=== PATIENT | male | born 1940 | race Caucasian/White ===

== ENCOUNTER 2019-12-17 08:01 | Emergency (ER) | payer MEDICARE, BC, SELFPAY ==
--- NOTE | ~2019-12-17 | CT_ITS ---
EXAMINATION: CT abdomen pelvis w con DATE: 12/17/2019 09:31 INDICATION: Prior bladder cancer presenting with chills and dysuria. TECHNIQUE: Computed tomography (CT) of the abdomen and pelvis was performed with 100 mL Omnipaque-350 intravenous contrast. Automated exposure control and iterative reconstruction technique were employe d. The dose-length product was 483.35 mGy-cm. COMPARISON: 12/11/2016 FINDINGS: Chronic band of round atelectasis at the posterior aspect of the left lower lobe. Chronic pleural thi ckening and trace pleural effusion at the posterior aspect of the left lower lobe. Calcified right lo wer lobe nodule consistent with old granulomatous disease. Heart size is normal. Atherosclerotic junior nary artery calcifications with change of prior median sternotomy for coronary artery bypass grafting . No pericardial effusion. Cholecystectomy clips at the gallbladder fossa. Liver, spleen, pancreas, bilateral adrenal glands and right kidney are normal. 5 mm left renal cyst. Moderate amount of colonic stool with ex 0.[address] ball of stool at the rectum. Small bowel and appendix are normal. Interval revision of a penile p rosthesis. Surgical clips versus brachytherapy seeds at the enlarged prostate. There are small thicke sherice along the posterior bladder wall thickening along with a couple bladder diverticula at the right posterior bladder. No free intraperitoneal gas or fluid. No pathologically enlarged abdominal or pel elsi lymphadenopathy. Mild lumbar levoscoliosis with moderate spondylosis. IMPRESSION: 1. Wall thickening in the posterior bladder with a couple bladder diverticula. The wall thickening co uld be related to chronic outlet obstruction from the enlarged prostate, cystitis, chronic scarring r elated to treatment of reported prior bladder cancer or recurrent malignancy. 2. Chronic pleural thickening and associated round atelectasis in the left lower lobe with unchanged trace left pleural effusion. Reviewed, dictated and finalized at location A. IMPRESSION: 1. Wall thickening in the posterior bladder with a couple bladder diverticula. The wall thickening could be related to chronic outlet obstruction from the enl arged prostate, cystitis, chronic scarring related to treatment of reported sallie or bladder cancer or recurrent malignancy. 2. Chronic pleural thickening and associated round atelectasis in the left lowe r lobe with unchanged trace left pleural effusion.
[2019-12-17 08:08] VITALS: BP 127/56; PULSE 75; RESP 18; TEMP 37; O2SAT 96
--- NOTE | 2019-12-17 08:24 | ED.ABDPAIN ---
HPI - Abdominal Pain General Chief Complaint: Urogenital-Male Stated Complaint: ?? UTI Time Seen by Provider: 12/17/19 08:23 History of Present Illness HPI narrative: Patient presents with his for difficulty with urination, and chills in the night. He has a history of frequent UTIs. He has a history of bladder cancer with surgery. His last CAT scan of the abdomen was 2011. He is followed by a urologist. He was unable to urinate here. He has no documented fever. He has no pain. He has no nausea or vomiting. He does not smoke drink or do drugs. He has surgical history of right rotator cuff, left knee, open heart, multiple hernias, and bladder cancer. Pertinent past history: past UTI and other (Bladder cancer) Onset (ago): hour(s) Related Data Home Medications Medication Instructions Recorded Confirmed finasteride 5 mg PO DAILY 05/22/19 06/05/19 metoprolol succinate 25 mg PO DAILY 05/22/19 06/05/19 tamsulosin 0.4 mg PO HS 05/22/19 06/05/19 Allergies Allergy/AdvReac Type Severity Reaction Status Date / Time atorvastatin Allergy Unknown Muscle Pain Verified 12/17/19 08:12 azithromycin Allergy Unknown Rash Verified 12/17/19 08:12 doxycycline Allergy Unknown Rash Verified 12/17/19 08:12 oxycodone Allergy Unknown Hallucinati Verified 12/17/19 08:21 ng pravastatin Allergy Unknown Muscle Pain Verified 12/17/19 08:12 rosuvastatin Allergy Unknown Muscle Pain Verified 12/17/19 08:12 Vadpdfh-Cdi-Vmk Reductase Allergy Unknown Muscle Pain Verified 12/17/19 08:12 Inhibitor tetracycline Allergy Unknown Rash Verified 12/17/19 08:12 Review of Systems Review of Systems: Narrative: CONSTITUTIONAL: Denies fever, but had chills. ENT: Denies rhinorrhea, congestion, sore throat, or otalgia. CARDIOVASCULAR: Denies chest pain, palpitations, or edema. RESPIRATORY: Denies cough or dyspnea. GASTROINTESTINAL: Denies abdominal pain, nausea, vomiting, or diarrhea. GENITOURINARY: Denies dysuria or hematuria. SKIN: Denies rash or itching. MUSCULOSKELETAL: Denies back pain, joint pain, or myalgia. NEUROLOGIC: Denies headache, numbness, or weakness. [facility] Past Medical History Medical History CAD (coronary artery disease) History of bladder cancer History of inguinal hernia History of rotator cuff strain Surgical History Surgical History Hx of CABG Social History Social History (Updated 12/17/19 @ 08:27 by Heather Grimes MD) Smoking status: Former smoker Smoking end date: 06/26/71 Alcohol intake: never Substance use: never Gender identity (if verbalized by the patient): Male Exam Narrative: Exam Narrative: GENERAL: Well-appearing, well-nourished, and in no acute distress. HEAD: Normocephalic, atraumatic. EYES: PERRLA and EOMI. ENT: Nares clear, no rhinorrhea or epistaxis. Mucous membranes moist. NECK: Supple. CHEST: Clear to auscultation. No respiratory distress. HEART: Regular rate and rhythm. No murmur heard. Normal peripheral pulses. ABDOMEN: Soft, nontender, nondistended, normal active bowel sounds. EXTREMITIES: Normal range of motion. No edema. SKIN: Warm, dry, no rash. NEURO: No focal deficits. Alert and oriented x3. PSYCH: Normal mood and affect. Course Reevaluation(s) Reevaluation #1: His bladder scan was 158, he is currently trying to obtain urine, his urologist is Dr. Valencia, the CAT scan shows obstruction. We will call Dr. Valencia for advice. Neena returned the call at [phone], and will consult with Dr. Lam and call me back. She says that the patient should call and schedule his cystoscopy and go home on antibiotics. Date: 12/17/19 Time: 10:04 Reevaluation #2: Went in to talk to the patient and tell him to go home on ciprofloxacin twice a day. He is also to call Dr. Lyn's office and schedule his cystoscopy. I encouraged him to drink plenty of water. He and his agree.
[2019-12-17] MEDS: SODIUM CHLORIDE 0.9% IV 1,000 ML 500 ML IV CONT (08:39)
[2019-12-17 08:51] LABS: Basophils Absolute Auto 0.1 K/mm3 (0.0-0.1); Basophils Percent Auto 0.3 % (0.2-1.2); Eosinophils Percent Auto 0.2 % (0-4.4); Hematocrit 44.2 % (42.0-52.0); Hemoglobin 14.8 g/dL (14.0-18.0); Immature Granulocyte Absolute 0.13 K/mm3 (0.00-0.031); Immature Granulocyte Percent A 0.7 % (0-0.5); Lymphocytes Percent Auto 5.1 % (18.3-44.2); Mean Corpuscular HGB Conc 33.5 g/dl (32-36); Mean Corpuscular Hemoglobin 31.8 pg (26-34); Mean Corpuscular Volume 95.1 fl (80-100); Mean Platelet Volume 10.2 fl (7.4-10.4); Monocytes Absolute Auto 1.5 K/mm3 (0.1-0.6); Monocytes Percent Auto 8.3 % (2.6-8.5); Neutrophils Percent Auto 85.4 % (45.5-73.1); Platelet Count Result 189 k/mm3 (150-375); Red Blood Count 4.65 M/mm3 (4.6-6.20); Red Cell Distribution Width 12.4 % (11.5-14.5); White Blood Count 17.6 K/mm3 (4.5-10.0)
[2019-12-17 09:06] LABS: Alanine Aminotransferase 20 U/L (4-50); Albumin Level 3.9 g/dL (3.5-5.1); Alkaline Phosphatase 106 U/L (38-126); Aspartate Amino Transferase 35 U/L (17-59); Bilirubin,Total 2.6 mg/dL (0.2-1.3); Blood Urea Nitrogen 17 mg/dL (9-20); Calcium 8.7 mg/dL (8.4-10.2); Carbon Dioxide 29 mmol/L (22-30); Chloride 100 mmol/L (98-107); Estimated CRCL calculation 74 ml/min; Estimated Glomerular Filt Rate > 60; Glucose 128 mg/dL (75-110); Potassium 4.2 mmol/L (3.4-5.0); Sodium 134 mmol/L (137-145)
[2019-12-17 09:10] LABS: Lactic Acid 0.9 mmol/L (0.7-2.1)
[2019-12-17 10:17] VITALS: BP 152/62; PULSE 65; RESP 18; O2SAT 98
[2019-12-17 10:37] LABS: Add Urine Microscopic? YES; Appearance Urine Clear (Clear); Bacteria Urine Trace /hpf; Bilirubin Urine Negative (Negative); Blood Urine Negative (Negative); Color Urine Yellow (Yellow); Glucose Urine UA Negative (Negative); Ketones Urine Trace mg/dL (Negative); Leukocyte Esterase Ur 3+ LEU/UL (Negative); Mucus Urine Rare /lpf; Nitrate Urine Positive (Negative); Protein Urine Negative (Negative); Squamous Epithelial Cell Urine Rare /hpf (Few); WBC Urine >75 /hpf
[2019-12-17 10:42] LABS: Specific Grav Ur 1.051 (1.001-1.035)
[2019-12-17 11:29] VITALS: BP 164/57; PULSE 80; RESP 18; O2SAT 96
== END 2019-12-17 11:31 | disposition home or self-care (01) ==
PROVIDERS: Emergency Provider Emergency Medicine; PCP Family Medicine
DX: E80.6 Other disorders of bilirubin metabolism (principal); R33.9 Retention of urine, unspecified; R68.83 Chills (without fever); N39.0 Urinary tract infection, site not specified; I25.10 Atherosclerotic heart disease of native coronary artery without angina pectoris; Z87.891 Personal history of nicotine dependence; Z95.1 Presence of aortocoronary bypass graft; Z85.51 Personal history of malignant neoplasm of bladder
CPT/HCPCS: 36415; 74177; 80053; 81001; 83605; 85025; 87040; 87077; 87086; 87088; 87186; 96361; 96365; 99284; J0696; J7030; Q9967

== ENCOUNTER 2019-12-19 08:43 | Emergency (ER) | payer MEDICARE, BC, SELFPAY ==
[2019-12-19] VITALS (12 sets, daily range): BP systolic 126–145; BP diastolic 55–106; PULSE 67–84; RESP 18–25; TEMP 37.4; O2SAT 93–97
--- NOTE | 2019-12-19 08:53 | ECG_ITS ---
Measurements Intervals [place] Rate: 82 P: 52 OR: 209 QRS: -36 QRSD: 98 T: 48 QT: 341 QTc: 401 Interpretive Statements SINUS RHYTHM POSSIBLE LEFT ATRIAL ENLARGEMENT LEFT AXIS DEVIATION BORDERLINE R WAVE PROGRESSION, ANTERIOR LEADS BORDERLINE ECG Electronically Signed On 12-19-2019 12:44:29 CDT by Young Richard D.O.
--- NOTE | 2019-12-19 08:56 | ED.FEVER ---
HPI - Fever General Chief Complaint: Urogenital-Male Stated Complaint: fever Time Seen by Provider: 12/19/19 08:49 History of Present Illness HPI Narrative: Seen here 2 days ago and diagnosed with UTi. Given single dose of ceftriaxone and started on antibiotics. He felt like he was getting better initially, but then his fever returned and worsened and he reports generally not feeling well. On review of the chart sensitivities are back from the urine culture and it grew out E. coli resistant to ceftriaxone and cipro. Related Data Home Medications Medication Instructions Recorded Confirmed finasteride 5 mg PO DAILY 05/22/19 06/05/19 metoprolol succinate 25 mg PO DAILY 05/22/19 06/05/19 tamsulosin 0.4 mg PO HS 05/22/19 06/05/19 Allergies Allergy/AdvReac Type Severity Reaction Status Date / Time atorvastatin Allergy Unknown Muscle Pain Verified 12/17/19 08:12 azithromycin Allergy Unknown Rash Verified 12/17/19 08:12 doxycycline Allergy Unknown Rash Verified 12/17/19 08:12 oxycodone Allergy Unknown Hallucinati Verified 12/17/19 08:21 ng pravastatin Allergy Unknown Muscle Pain Verified 12/17/19 08:12 rosuvastatin Allergy Unknown Muscle Pain Verified 12/17/19 08:12 Mhuowjj-Myn-Yub Reductase Allergy Unknown Muscle Pain Verified 12/17/19 08:12 Inhibitor tetracycline Allergy Unknown Rash Verified 12/17/19 08:12 Review of Systems Review of Systems: All systems reviewed & are unremarkable except as noted in HPI and below Constitutional: Constitutional: Reports chills, Reports fatigue and Reports fever(s) ENT: Denies sore throat Cardiovascular: Cardiovascular: Denies chest pain Respiratory: Respiratory: Denies cough, Denies dyspnea and Denies wheezing Gastrointestinal: Gastrointestinal: Reports nausea Genitourinary: Genitourinary: Reports hematuria, Reports dysuria and Reports urinary frequency Musculoskeletal: Musculoskeletal: Reports back pain PMFSH Past Medical History Medical History CAD (coronary artery disease) History of bladder cancer History of inguinal hernia History of rotator cuff strain Surgical History Surgical History Hx of CABG Family History Family History Other Family history of coronary artery disease Family history of malignant neoplasm Social History Social History Smoking status: Former smoker Smoking end date: 06/26/71 Alcohol intake: never Substance use: never Gender identity (if verbalized by the patient): Male Exam Const: General: healthy appearing, no acute distress and alert Orientation/consciousness: patient oriented x3 HENMT: Head: normal to inspection Neck: Neck: normal visual inspection and no lymphadenopathy Chest: Chest palpation & inspection: no tenderness Resp: Effort & Inspection: normal respiratory effort Auscultation: clear to auscultation bilaterally, no rales, no rhonchi and no wheezes Cardio: Jugular venous distension: no JVD Rate: regular rate Rhythm: regular rhythm Heart sounds: no murmurs GI: Inspection: non-distended GI Palp: Yes Soft to palpation and No Tenderness to palpation present (GI) Skin: General skin exam: normal color Neuro: General: patient oriented x3 and moves all extremities Speech: normal speech Extrem: General: no edema Psych: Appearance: well kempt Affect: normal affect Course Vital Signs Vital signs: Vital Signs Temperature 37.4 C 12/19/19 08:50 Pulse Rate 77 12/19/19 08:50 Respiratory Rate 23 H 12/19/19 08:50 Blood Pressure 140/71 12/19/19 08:50 Pulse Oximetry 96 12/19/19 08:50 Temperature 37.4 C 12/19/19 08:50 Pulse Rate 70 12/19/19 10:01 Respiratory Rate 22 H 12/19/19 10:01 Blood Pressure 133/55 L 12/19/19 10:01 Pulse Oximetry 96
[2019-12-19] MEDS: SODIUM CHLORIDE 0.9% IV 1,000 ML 999 ML IV CONT (09:15)
[2019-12-19 09:17] LABS: Basophils Percent Auto 0.2 % (0.2-1.2); Eosinophils Percent Auto 0.2 % (0-4.4); Hematocrit 43.1 % (42.0-52.0); Hemoglobin 14.2 g/dL (14.0-18.0); Immature Granulocyte Percent A 0.8 % (0-0.5); Lymphocytes Absolute Auto 0.54 K/mm3 (0.9-3.2); Lymphocytes Percent Auto 4.3 % (18.3-44.2); Mean Corpuscular HGB Conc 32.9 g/dl (32-36); Mean Corpuscular Hemoglobin 31.6 pg (26-34); Mean Platelet Volume 10.1 fl (7.4-10.4); Monocytes Percent Auto 8.1 % (2.6-8.5); Neutrophils Absolute Auto 10.8 K/mm3 (1.3-6.7); Neutrophils Percent Auto 86.4 % (45.5-73.1); Platelet Count Result 176 k/mm3 (150-375); Red Blood Count 4.49 M/mm3 (4.6-6.20); Red Cell Distribution Width 12.4 % (11.5-14.5); White Blood Count 12.6 K/mm3 (4.5-10.0)
[2019-12-19 09:29] LABS: Alanine Aminotransferase 21 U/L (4-50); Albumin Level 3.7 g/dL (3.5-5.1); Alkaline Phosphatase 123 U/L (38-126); Aspartate Amino Transferase 31 U/L (17-59); Bilirubin,Total 1.3 mg/dL (0.2-1.3); Blood Urea Nitrogen 16 mg/dL (9-20); Calcium 8.5 mg/dL (8.4-10.2); Carbon Dioxide 28 mmol/L (22-30); Chloride 102 mmol/L (98-107); Estimated CRCL calculation 66 ml/min; Estimated Glomerular Filt Rate > 60; Glucose 150 mg/dL (75-110); Potassium 3.8 mmol/L (3.4-5.0); Sodium 135 mmol/L (137-145)
== END 2019-12-19 10:17 | disposition home or self-care (01) ==
PROVIDERS: Emergency Provider Emergency Medicine; PCP Family Medicine
DX: N39.0 Urinary tract infection, site not specified (principal); I25.10 Atherosclerotic heart disease of native coronary artery without angina pectoris; Z85.51 Personal history of malignant neoplasm of bladder; Z95.1 Presence of aortocoronary bypass graft; Z87.891 Personal history of nicotine dependence
CPT/HCPCS: 36415; 80053; 85025; 93005; 96360; 99283; A9270; J7030

== ENCOUNTER 2020-07-06 00:32 | Outpatient (CLI) | payer MEDICARE, BC, SELFPAY ==
[2020-07-06 19:06] LABS: SARS-CoV-2 RNA PCR Negative
== END 2020-07-06 00:33 | disposition home or self-care (01) ==
LOC: ANHCOVIDDT 00:32
PROVIDERS: PCP Internal Medicine Geriatric Medicine; Visit Provider Internal Medicine Gastroenterology
DX: Z01.812 Encounter for preprocedural laboratory examination (principal); Z20.822 Contact with and (suspected) exposure to COVID-19
CPT/HCPCS: C9803; U0003

== ENCOUNTER 2020-07-09 00:45 | Day surgery (SDC) | payer MEDICARE, BC, SELFPAY ==
[2020-07-01 14:18] VITALS: BMI 23.9
[2020-07-09 07:06] VITALS: BP 125/67; PULSE 112; RESP 18; TEMP 36.6; O2SAT 97
[2020-07-09] MEDS: LACTATED RINGERS 1,000 ML 150 ML IV CONT (07:18)
--- NOTE | 2020-07-09 07:56 | PM.IMHP ---
H&P: [facility] History of Present Illness Date/Time: 07/09/20 07:56 Chief Complaint: Patient here for colonosc Narrative: Reason for visit is colonoscopy. This very pleasant gentleman is here at the request of the primary physician. The patient was examined. Impression: This gentleman is here for screening and surveillance colonoscopy. He has a history of adenomatous colon polyps. He has difficulty with defecation is most likely functional in nature. 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 CAD status post stent placement x1 with subsequent CABG x2. Right carotid bruit. HLD. HTN. Bladder cancer. Status post cystoscopy excision of bladder tumor. BPH. Recommendation: Colonoscopy. Carotid Dopplers. History: This very pleasant gentleman is here for screening and surveillance colonoscopy. He has a history adenomatous colon polyps and melanosis coli. The patient reports difficulty with defecation. He has straining with subsequent passage of a plug of stool and gas. Hematochezia, melena collect stools at night. He is here for colonoscopy. Physical examination: General: very pleasant patient in no acute distress. HEENT: Head was normocephalic sclerae is clear mouth without masses neck was supple. Heart: Rate rhythm regular without S3 or S4. Right carotid bruit. Lungs: CTA. Abdomen: Soft with no guarding or rigidity. Bowel sounds were active. Neurologic: Cranial nerves 2 through 12 intact. No focal defects. No clonus. Musculoskeletal system: Revealed no joint tenderness or swelling no muscle atrophy. Extremities: Reveal no significant edema. Skin: Warm and dry with normal turgor. Mental status: intact. Patient is alert and oriented. Review of Systems Review of Systems: All systems reviewed & are unremarkable except as noted in HPI and below [facility] Past Medical History Medical History (Updated 07/09/20 @ 07:55 by Sang Doll DO) Adenomatous colon polyp BPH (benign prostatic hyperplasia) CAD (coronary artery disease) History of bladder cancer HLD (hyperlipidemia) HTN (hypertension) Surgical History Surgical History (Updated 07/09/20 @ 07:56 by Sang Doll DO) H/O colonoscopy Hx of CABG S/P primary angioplasty with coronary stent Family History Family History Other Family history of coronary artery disease Family history of malignant neoplasm Social History Social History Smoking packs per day: 1 Smoking cigarettes per day: 20.0 Years smoked: 13 Smoking pack-years: 13.00 Smoking status: Former smoker Tobacco type: cigarettes Smoking end date: 06/26/71 Alcohol intake: never Substance use: never Substance use type: does not use Living arrangements: with family Gender identity (if verbalized by the patient): Male Spiritual care concerns: No Meds Home Medications and Allergies Home Medications Medication Instructions Recorded Confirmed Type finasteride 5 mg PO DAILY 05/22/19 07/01/20 History tamsulosin 0.4 mg PO HS 05/22/19 07/01/20 History aspirin 325 mg PO DAILY 07/01/20 07/01/20 History Allergies Allergy/AdvReac Type Severity Reaction Status Date / Time atorvastatin Allergy Unknown Muscle Pain Verified 07/09/20 07:04 azithromycin Allergy Unknown Rash Verified 07/09/20 07:04 doxycycline Allergy Unknown Rash Verified 07/09/20 07:04 oxycodone Allergy Unknown Hallucinati Verified 07/09/20 07:04 ng pravastatin Allergy Unknown Muscle Pain Verified 07/09/20 07:04 rosuvastatin Allergy Unknown Muscle Pain Verified 07/09/20 07:04 Sypodmf-Aat-Okp Reductase Allergy Unknown Muscle Pain Verified 07/09/20 07:04 Inhibitor tetracycline Allergy Unknown Rash Verified 07/09/20 07:04 Vital Signs Vital Signs - 24 hr 07/09/20 07:06 Temperature 36.6 C Pulse Rate 112 H Respiratory Rate 18 Blood Pressure
--- NOTE | 2020-07-09 08:02 | WPDANESEPPF ---
Anes - Initial Pre Proc Eval Procedure: Operation Date: 07/09/20 08:30 Proposed Procedures p Screening Colonoscopy - Sang Doll DO Date/Time: 07/09/20 08:02 Surgeon: Sang Doll DO Pre Op Diagnosis: neoplasm screening Patient Data Age: 80 Gender: M Height: 6 ft Weight: 79.4 kg Last Vital Signs Temp 97.9 F 07/09/20 07:06 Pulse 112 H 07/09/20 07:06 Resp 18 07/09/20 07:06 BP 125/67 07/09/20 07:06 Pulse Ox 97 07/09/20 07:06 Allergies Allergy/AdvReac Type Severity Reaction Status Date / Time atorvastatin Allergy Unknown Muscle Pain Verified 07/09/20 07:04 azithromycin Allergy Unknown Rash Verified 07/09/20 07:04 doxycycline Allergy Unknown Rash Verified 07/09/20 07:04 oxycodone Allergy Unknown Hallucinati Verified 07/09/20 07:04 ng pravastatin Allergy Unknown Muscle Pain Verified 07/09/20 07:04 rosuvastatin Allergy Unknown Muscle Pain Verified 07/09/20 07:04 Lcsgcei-Gev-Ibe Reductase Allergy Unknown Muscle Pain Verified 07/09/20 07:04 Inhibitor tetracycline Allergy Unknown Rash Verified 07/09/20 07:04 Home Medications Medication Instructions Recorded Confirmed Type finasteride 5 mg PO DAILY 05/22/19 07/01/20 History tamsulosin 0.4 mg PO HS 05/22/19 07/01/20 History aspirin 325 mg PO DAILY 07/01/20 07/01/20 History Patient hx anesthesia problems: none Family hx anesthesia problems: none PMFSH Past Medical History Medical History (Updated 07/09/20 @ 07:55 by Sang Doll DO) Adenomatous colon polyp BPH (benign prostatic hyperplasia) CAD (coronary artery disease) History of bladder cancer HLD (hyperlipidemia) HTN (hypertension) Surgical History Surgical History (Updated 07/09/20 @ 07:56 by Sang Doll DO) H/O colonoscopy Hx of CABG S/P primary angioplasty with coronary stent Family History Family History Other Family history of coronary artery disease Family history of malignant neoplasm Social History Social History Smoking packs per day: 1 Smoking cigarettes per day: 20.0 Years smoked: 13 Smoking pack-years: 13.00 Smoking status: Former smoker Tobacco type: cigarettes Smoking end date: 06/26/71 Alcohol intake: never Substance use: never Substance use type: does not use Living arrangements: with family Gender identity (if verbalized by the patient): Male Spiritual care concerns: No Anes - Eval Final PreProcedure Day of Procedure 07/09/20 08:02 Patient weight: normal Heart: regular rate and rhythm Lungs: clear to auscultation Airway: Mallampati scale class II Neurological: alert and oriented Last oral intake: >/= 8 hours ASA classification: III Emergent: no Anesthetic plan: proceed Anesthesia type and monitoring: general GIVS and standard monitoring Informed Consent: The patient's anesthetic plan and its attendant risks and benefits were discussed with the patient/family/POA. Questions were solicited and answers provided to the satisfaction of the patient/family/POA.
[2020-07-09 09:29] VITALS: BP 110/55; PULSE 63; RESP 18; O2SAT 98
[2020-07-09 09:39] VITALS: BP 109/53; PULSE 54; RESP 18; O2SAT 96
[2020-07-09 09:48] VITALS: BP 124/61; PULSE 55; RESP 18; O2SAT 96
== END 2020-07-09 10:08 | disposition home or self-care (01) ==
PROVIDERS: PCP Internal Medicine Geriatric Medicine; Visit Provider Internal Medicine Gastroenterology
PROC: 0DJD8ZZ Inspection of Lower Intestinal Tract, Via Natural or Artificial Opening Endoscopic (ICD-10-PCS; CPT 45378; principal; 2020-07-09 08:30)
DX: Z12.11 Encounter for screening for malignant neoplasm of colon (principal); D12.2 Benign neoplasm of ascending colon; K64.8 Other hemorrhoids; I10 Essential (primary) hypertension; E78.5 Hyperlipidemia, unspecified; I25.10 Atherosclerotic heart disease of native coronary artery without angina pectoris; N40.0 Benign prostatic hyperplasia without lower urinary tract symptoms; Z85.51 Personal history of malignant neoplasm of bladder; Z95.1 Presence of aortocoronary bypass graft; Z95.5 Presence of coronary angioplasty implant and graft; Z79.82 Long term (current) use of aspirin; Z87.891 Personal history of nicotine dependence
CPT/HCPCS: 45380; 88305; J2704; J7120

== ENCOUNTER 2020-08-06 18:34 | Emergency (ER) | payer MEDICARE, BC, SELFPAY ==
[2020-08-06 18:45] VITALS: BP 142/63; PULSE 59; RESP 16; TEMP 36.6; O2SAT 98
[2020-08-06] MEDS: predniSONE 20 MG TABLET 60 MG PO (19:44)
[2020-08-06] MEDS: diphenhydrAMINE HCl INJ 50 MG/ML VIAL 25 MG IM (19:44)
--- NOTE | 2020-08-06 20:24 | ED.ALLEREA ---
HPI - Allergic Reaction General Chief complaint: Allergic Reaction Stated complaint: allergic reaction to shrimp? Time Seen by Provider: 08/06/20 19:11 Source: patient and family Mode of arrival: ambulatory Limitations: no limitations History of Present Illness HPI narrative: 80-year-old with a history of BPH, hypertension here with complaints of bilateral palms itching since this afternoon. Patient states that he had his went out to eat [place] food touched shrimp with his hands but did not eat as it was smelling bad. He denies any shortness of breath or throat swelling or abdominal pain. MD complaint: allergic reaction Onset (ago): hour(s) (4) Exposure: food (Shrimp) Symptoms: itching Severity: moderate Treatment prior to arrival: none Previous Allergic Reaction History: none Related Data Home Medications Medication Instructions Recorded Confirmed finasteride 5 mg PO DAILY 05/22/19 07/01/20 tamsulosin 0.4 mg PO HS 05/22/19 07/01/20 aspirin 325 mg PO DAILY 07/01/20 07/01/20 Allergies Allergy/AdvReac Type Severity Reaction Status Date / Time atorvastatin Allergy Unknown Muscle Pain Verified 08/06/20 18:50 azithromycin Allergy Unknown Rash Verified 08/06/20 18:50 doxycycline Allergy Unknown Rash Verified 08/06/20 18:50 oxycodone Allergy Unknown Hallucinati Verified 08/06/20 18:50 ng pravastatin Allergy Unknown Muscle Pain Verified 08/06/20 18:50 rosuvastatin Allergy Unknown Muscle Pain Verified 08/06/20 18:50 Wwgevsh-Uww-Znu Reductase Allergy Unknown Muscle Pain Verified 08/06/20 18:50 Inhibitor tetracycline Allergy Unknown Rash Verified 08/06/20 18:50 Review of Systems Review of Systems: All systems reviewed & are unremarkable except as noted in HPI and below Constitutional: Constitutional: Reports no additional constitutional complaints Eyes: Eyes: Reports no additional eye complaints ENT: Reports system reviewed and no additional complaints, except as documented Cardiovascular: Cardiovascular: Reports no additional cardiovascular complaints Respiratory: Respiratory: Reports no additional respiratory complaints Gastrointestinal: Gastrointestinal: Reports no additional gastrointestinal complaints Musculoskeletal: Musculoskeletal: Reports no additional musculoskeletal complaints Integumentary/Breasts: Skin/Breast: Reports as per HPI Neurologic: Reports system reviewed and no additional complaints, except as documented PMFSH Past Medical History Medical History Adenomatous colon polyp BPH (benign prostatic hyperplasia) CAD (coronary artery disease) History of bladder cancer HLD (hyperlipidemia) HTN (hypertension) Surgical History Surgical History H/O colonoscopy Hx of CABG S/P primary angioplasty with coronary stent Family History Family History Other Family history of coronary artery disease Family history of malignant neoplasm Social History Social History Smoking packs per day: 1 Smoking cigarettes per day: 20.0 Years smoked: 13 Smoking pack-years: 13.00 Smoking status: Former smoker Tobacco type: cigarettes Smoking end date: 06/26/71 Alcohol intake: never Substance use: never Substance use type: does not use Gender identity (if verbalized by the patient): Male Spiritual care concerns: No Exam Narrative: Exam Narrative: GENERAL: Well-appearing, well-nourished, and in no acute distress. HEAD: Normocephalic, atraumatic. EYES: PERRLA and EOMI. ENT: Nares clear, no rhinorrhea or epistaxis. Mucous membranes moist. NECK: Supple. CHEST: Clear to auscultation. No respiratory distress. HEART: Regular rate and rhythm. No murmur heard. Normal peripheral pulses.. EXTREMITIES: Normal range of motion. No edema.no rash SKIN: Warm, dry, no
== END 2020-08-06 20:41 | disposition home or self-care (01) ==
PROVIDERS: Emergency Provider Family Medicine; PCP Internal Medicine Geriatric Medicine
DX: T78.40XA Allergy, unspecified, initial encounter (principal); N40.0 Benign prostatic hyperplasia without lower urinary tract symptoms; I10 Essential (primary) hypertension; Z86.010 Personal history of colon polyps; I25.10 Atherosclerotic heart disease of native coronary artery without angina pectoris; Z85.51 Personal history of malignant neoplasm of bladder; E78.5 Hyperlipidemia, unspecified; Z79.82 Long term (current) use of aspirin; Z95.1 Presence of aortocoronary bypass graft; Z95.5 Presence of coronary angioplasty implant and graft
CPT/HCPCS: 96372; 99283; J1200; J7512

== ENCOUNTER 2021-09-08 09:50 | Inpatient (IN) | payer MEDICARE, BC, SELFPAY ==
[2021-09-08] VITALS (27 sets, daily range): BP systolic 115–150; BP diastolic 53–100; PULSE 62–102; RESP 15–23; TEMP 36.6–36.9; O2SAT 90–98; BMI 22.8
--- NOTE | ~2021-09-08 | CT_ITS ---
EXAMINATION: CT abdomen pelvis w con DATE: 09/09/2021 18:17 INDICATION: Bladder cancer TECHNIQUE: Computed tomography (CT) of the abdomen and pelvis was performed with 100 CC Omnipaque 350 intravenous contrast. Automated exposure control and iterative reconstruction technique were employe d. Exam dose: 468.99 mGy-cm total exam DLP. COMPARISON: 12/17/2019 CT abdomen pelvis FINDINGS: There is left pleural thickening and chronic prominent discoid scarring in the posterior ba silar left lower lobe, also present on 12/17/2019. Status post sternotomy. Cardiomegaly. No pericardial or pleural effusion. The lung bases are clear of infiltrate or consolida tion. Status post cholecystectomy which likely accounts for mild prominence of the common bile duct and int rahepatic bile ducts. No hepatic, splenic and, pancreatic, and adrenal or renal space-occupying mass lesion is evident, wit h the exception of a 7 mm left renal cyst. No lower quadrant. No urinary tract calculus or hydroureteronephrosis. There are multiple urinary bladder diverticula. There is irregular soft tissue density in the posterior lower urinary bladder and prostate area; hist ory of bladder cancer. The appearance is stable compared to 12/17/2019 Radiopaque brachytherapy seeds are noted in the prostate. There is a prominent amount of fecal material in the rectosigmoid area without unusual thickening of the wall. No bowel obstruction. Normal appendix. No intraperitoneal free air. There is atherosclerotic calcification of the abdominal aorta but no aneurysm. No intraperitoneal or retroperitoneal or pelvic mass lesion or adenopathy or ascites is noted otherwise. Penile prosthetic device. Extensive osteolytic disease of the ribs, spine, pelvis consistent with extensive skeletal metastatic disease since 12/17/2019. IMPRESSION: Stable chronic thickening along the posterior inferior aspect of the urinary bladder whi ch may be due to prostate enlargement or urinary bladder or prostate malignancy; the appearance howev er is stable since 12/17/2019 Interval extensive osteolytic lesion of the axial skeleton suggesting extensive skeletal metastases. Consider radionuclide bone scan for confirmation of the extent of disease Radiopaque brachytherapy seeds in the prostate Bladder diverticula 7 mm left renal cyst Status post cholecystectomy, likely responsible for mild bile duct dilatation Cardiomegaly Chronic pleural thickening and scarring in the left lower lobe Reviewed, dictated and finalized at [facility]. Reviewed, dictated and finalized at location [facility]. IMPRESSION: Stable chronic thickening along the posterior inferior aspect of t he urinary bladder which may be due to prostate enlargement or urinary bladder or prostate malignancy; the appearance however is stable since 12/17/2019 Interval extensive osteolytic lesion of the axial skeleton suggesting extensive skeletal metastases. Consider radionuclide bone scan for confirmation of the e xtent of disease Radiopaque brachytherapy seeds in the prostate Bladder diverticula 7 mm left renal cyst Status post cholecystectomy, likely responsible for mild bile duct dilatation Cardiomegaly Chronic pleural thickening and scarring in the left lower lobe
--- NOTE | ~2021-09-08 | XR_ITS ---
XR chest 1V portable 09/08/2021 10:17 Indication: Dyspnea. Chest pain. Procedure: AP portable chest Comparison: Comparison to multiple prior studies sequentially, with oldest reviewed study dated 12/23. Findings: There is airspace disease left mid and lower lung, consistent with pneumonia. Possible smal l effusion. Status post median sternotomy for CABG. Right lung clear. No acute osseous abnormality. Impression: 1: Left basilar airspace disease, consistent with pneumonia. Reviewed, dictated and finalized at location [facility]. Impression: 1: Left basilar airspace disease, consistent with pneumonia.
--- NOTE | ~2021-09-08 | NM_ITS ---
EXAMINATION: NM humphrey stress w perfusion DATE: 09/10/2021 10:13 INDICATION: Chest pain. Elevated troponin. Coronary artery disease. TECHNIQUE: Rest images were obtained following intravenous administration of 9.6 mCi Tc99m tetrofosmi n (Myoview). The patient was infused intravenously with Lexiscan (Regadenoson). Then, 29.9 mCi Tc99m tetrofosmin (Myoview) was administered intravenously, and stress images were obtained in supine posit ion. Patient was unable to tolerate prone positioning. Data was reconstructed into short axis and hor izontal and vertical long axis SPECT images. Gated SPECT images were also obtained. COMPARISON: None. 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 No reversible ischemia. There is normal left ventricular chamber size, wall motion and eject ion fraction. Left ventricular ejection fraction measures 54%. Incidentally noted is a focus of inte nse uptake of activity on the anterior left chest wall which correlates with an expansile destructive lesion involving the anterior left third rib consistent with multiple myeloma versus metastatic dise ase. IMPRESSION: 1. Small mild fixed perfusion defect at the mid anterolateral segment consistent with infarct. No rev ersible ischemia. 2. Left ventricular ejection fraction measuring 54%. 3. Focus of intense uptake at the anterior left chest wall corresponding expansile lytic lesion at th e anterior left third rib consistent with multiple myeloma versus metastatic disease in this patient with known bladder cancer. Reviewed, dictated and finalized at location [facility]. IMPRESSION: 1. Small mild fixed perfusion defect at the mid anterolateral segment consisten t with infarct. No reversible ischemia. 2. Left ventricular ejection fraction measuring 54%. 3. Focus of intense uptake at the anterior left chest wall corresponding expans ile lytic lesion at the anterior left third rib consistent with multiple myelom a versus metastatic disease in this patient with known bladder cancer.
--- NOTE | ~2021-09-08 | CT_ITS ---
EXAMINATION:CT diagnostic chest wo con DATE: 09/08/2021 13:30 INDICATION: Chest pain. Pneumonia. TECHNIQUE: Computed tomography (CT) of the chest was performed without intravenous contrast. Automate d exposure control and iterative reconstruction technique were employed. The dose-length product (DLP ) was 146.70 mGy-cm. COMPARISON: Chest CT 12/11/2016 FINDINGS: There is mild scarring at the lung apices. There is mild emphysema. Chronic left-sided pleu ral thickening is noted. There is mild rounded atelectasis in left lower lobe. Again seen is peripher al septal thickening in right lower lobe, consistent with chronic lung disease. No pleural effusion. Cardiomegaly is noted. There are coronary artery calcifications. There are calcifications of aortic v alve. There are changes of cholecystectomy. There are widespread scattered lytic lesions of bone. The re is largest lesion is in left third rib where there is a 3.2 x 1.6 cm soft tissue mass. IMPRESSION: 1. Widespread lytic lesions of bone, consistent with multiple myeloma versus metastatic disease. 2. Mild emphysema and mild chronic lung disease. Reviewed, dictated and finalized at location A. IMPRESSION: 1. Widespread lytic lesions of bone, consistent with multiple myeloma versus me tastatic disease. 2. Mild emphysema and mild chronic lung disease.
--- NOTE | 2021-09-08 10:06 | ECG_ITS ---
Measurements Intervals [place] Rate: 90 P: 53 MO: 221 QRS: -41 QRSD: 122 T: 59 QT: 352 QTc: 433 Interpretive Statements SINUS RHYTHM WITH FIRST DEGREE AV BLOCK POSSIBLE LEFT ATRIAL ENLARGEMENT [-0.1mV P WAVE IN V1/V2] MARKED LEFT AXIS DEVIATION [QRS AXIS < -30] COMPARED TO ECG 12/19/2019 08:53:41 FIRST DEGREE AV BLOCK NOW PRESENT Electronically Signed On 09-08-2021 13:04:17 CDT by Sadie Richards M.D.
[2021-09-08 10:33] LABS: Basophils Absolute Auto 0.1 K/mm3 (0.0-0.1); Basophils Percent Auto 0.6 % (0.2-1.2); Eosinophils Absolute Auto 0.2 K/mm3 (0-0.3); Eosinophils Percent Auto 1.7 % (0-4.4); Hematocrit 39.8 % (42.0-52.0); Hemoglobin 13.1 g/dL (14.0-18.0); Immature Granulocyte Absolute 0.05 K/mm3 (0.00-0.031); Immature Granulocyte Percent A 0.6 % (0-0.5); Lymphocytes Absolute Auto 1.07 K/mm3 (0.9-3.2); Lymphocytes Percent Auto 11.8 % (18.3-44.2); Mean Corpuscular HGB Conc 32.9 g/dl (32-36); Mean Corpuscular Hemoglobin 32.8 pg (26-34); Mean Corpuscular Volume 99.7 fl (80-100); Mean Platelet Volume 9.8 fl (7.4-10.4); Monocytes Absolute Auto 0.8 K/mm3 (0.1-0.6); Monocytes Percent Auto 8.4 % (2.6-8.5); Neutrophils Percent Auto 76.9 % (45.5-73.1); Platelet Count Result 219 k/mm3 (150-375); Red Blood Count 3.99 M/mm3 (4.6-6.20); Red Cell Distribution Width 12.3 % (11.5-14.5); White Blood Count 9.1 K/mm3 (4.5-10.0)
[2021-09-08 10:44] LABS: INR 1.1; Prothrombin Time 13.4 Seconds (11.1-14.7)
[2021-09-08 10:45] LABS: Alanine Aminotransferase 58 U/L (4-50); Albumin Level 3.8 g/dL (3.5-5.1); Alkaline Phosphatase 112 U/L (38-126); Anion Gap 7 mmol/L (8-16); Aspartate Amino Transferase 81 U/L (17-59); Blood Urea Nitrogen 29 mg/dL (9-20); Calcium 9.9 mg/dL (8.4-10.2); Carbon Dioxide 30 mmol/L (22-30); Chloride 104 mmol/L (98-107); Estimated CRCL calculation 41 ml/min; Estimated Glomerular Filt Rate 49; Glucose 130 mg/dL (65-110); Partial Thromboplastin Time 26.2 SECONDS (22.3-36.8); Sodium 141 mmol/L (137-145)
--- NOTE | 2021-09-08 11:32 | ED.GENADULT ---
HPI - General Adult General Chief complaint: Shortness of Breath/Dyspnea Stated complaint: Shortness of Breath Time Seen by Provider: 09/08/21 11:09 Source: patient, family and RN notes reviewed Mode of arrival: ambulatory Limitations: no limitations History of Present Illness HPI narrative: Patient 81 years old white male presented to the ED with chest pain, bilaterally about 1-1/2-month ago. Patient was seen by dope worker, his family physician without a specific diagnosis. Patient was tested positive for Covid on June 30, 2020, been feeling weak since, poor appetite, weight loss, long hours of sleep, crazy dreams, cannot lay down on the chest, weakness of the upper and lower extremities the above symptom worse with exertion, better at rest. Related Data Home Medications Medication Instructions Recorded Confirmed finasteride 5 mg PO DAILY 05/22/19 07/01/20 tamsulosin 0.4 mg PO HS 05/22/19 07/01/20 aspirin 325 mg PO DAILY 07/01/20 07/01/20 Allergies Allergy/AdvReac Type Severity Reaction Status Date / Time atorvastatin Allergy Unknown Muscle Pain Verified 08/06/20 18:50 azithromycin Allergy Unknown Rash Verified 08/06/20 18:50 doxycycline Allergy Unknown Rash Verified 08/06/20 18:50 pravastatin Allergy Unknown Muscle Pain Verified 08/06/20 18:50 rosuvastatin Allergy Unknown Muscle Pain Verified 08/06/20 18:50 Uarwitv-AHZ-UeS Reductase Allergy Unknown Muscle Pain Verified 08/06/20 18:50 Inhibitor [Trmibbw-Xqi-Vsn Reductase Inhibitor] tetracycline Allergy Unknown Rash Verified 08/06/20 18:50 shellfish derived Allergy Itching Verified 09/08/21 10:04 oxycodone AdvReac Unknown Hallucinati Verified 09/08/21 12:28 ng Review of Systems Review of Systems: CONSTITUTIONAL: Denies fever, chills, or sweats. EYES: Denies visual changes, redness, or discharge. ENT: Denies rhinorrhea, congestion, sore throat, or otalgia. CARDIOVASCULAR: Denies chest pain, palpitations, or edema. RESPIRATORY: Denies cough or dyspnea. GASTROINTESTINAL: Denies abdominal pain, nausea, vomiting, or diarrhea. GENITOURINARY: Denies dysuria or hematuria. SKIN: Denies rash or itching. MUSCULOSKELETAL: Denies back pain, joint pain, or myalgia. NEUROLOGIC: Denies headache, numbness, or weakness. PSYCHIATRIC: Denies anxiety or depression. [facility] Past Medical History Medical History Adenomatous colon polyp BPH (benign prostatic hyperplasia) CAD (coronary artery disease) History of bladder cancer HLD (hyperlipidemia) HTN (hypertension) Surgical History Surgical History H/O colonoscopy Hx of CABG S/P primary angioplasty with coronary stent Family History Family History Other Family history of coronary artery disease Family history of malignant neoplasm Social History Social History Smoking packs per day: 1 Smoking cigarettes per day: 20.0 Years smoked: 13 Smoking pack-years: 13.00 Smoking status: Former smoker Tobacco type: cigarettes Smoking end date: 06/26/71 Alcohol intake: never Substance use: never Substance use type: does not use Gender identity (if verbalized by the patient): Male Spiritual care concerns: No Exam Narrative: General appearance: Well-developed, well-nourished, depressed, at the bedside Skin: Normal color Head: Normocephalic, nontraumatic Eyes: Clear conjunctiva ENT: Oropharynx normal, ears normal, nose normal Neck: Supple, nontender Chest and respiratory: Airway patent, no respiratory distress, no accessory muscle use Heart: Regular rate/rhythm Abdomen: Soft, nontender, no organomegaly, quiet bowel sounds Vascular: Normal peripheral pulses, normal capillary refill. Musculoskeletal: Normal range of motion, nontender back Neurologic: Alert and oriented ?3, BINDER STRIPPER MACHINE is norm
[2021-09-08 11:47] LABS: NT Pro B Type Natriuretic Pept 11600 pg/mL (5-100)
[2021-09-08 12:02] LABS: Creatine Kinase 391 U/L (55-170)
[2021-09-08 12:11] LABS: Erythrocyte Sedimentation Rate 22 mm/hr (0-20)
[2021-09-08] MEDS: HEPARIN SODIUM 5,000 UNITS/ML VIAL 4000 UNITS IV PUSH (12:25)
[2021-09-08] MEDS: METOPROLOL TARTRATE TAB 25 MG, METOPROLOL TARTRATE TAB 12.5 MG 37.5 MG PO (12:25)
[2021-09-08] MEDS: HEPARIN SOD/D5W 100 UNITS/ML 25,000 UNITS/250 ML BAG 9 UNITS IV CONT (12:26)
--- NOTE | 2021-09-08 13:39 | PC.NURSE ---
informed pt can not go to room without covid test. order obtained to retrieve specimen
[2021-09-08 14:00] LABS: SARS-CoV-2 RNA PCR Negative
--- NOTE | 2021-09-08 14:52 | ADMGEN ---
This patient, Ron Hickey, was admitted to IMU Room 205-02. Patient/family oriented to hospital policies and general routines including ID bracelet, bed and alarms, visiting hours, pain management, procedures, bathroom and other care routines, personal items, smoking policy, room service/diet, and visiting hours. Information on how to activate the Rapid Response Team has been discussed. Patient/Family are encouraged to report perceived risks to care and to ask questions if they do not understand what they are told or what they should do.
[2021-09-08] MEDS: SODIUM CHLORIDE 0.9% IV 1,000 ML 125 ML IV CONT (17:28)
--- NOTE | 2021-09-08 18:16 | PM.CNCAR ---
Assessment and Plan Assessment and plan (1) Elevated troponin: Code(s): R77.8 - Other specified abnormalities of plasma proteins Status: Acute Assessment and Plan: Patient presents with noncardiac complaints. He does have elevated troponins, but so far this looks like a flat curve. Had atypical chest pain which is unlikely to be cardiac, probably skeletal. EKG is fairly unremarkable. The elevated troponin may be incidental finding Check EKG in the morning (2) Lower extremity weakness: Code(s): R29.898 - Other symptoms and signs involving the musculoskeletal system Status: Acute Assessment and Plan: Patient's main complaint which brought him to the emergency room was extreme weakness particularly weakness of his legs. Has an elevated CPK of uncertain etiology CT scan showed widespread bony metastasis. This may relate to his extreme weakness. (3) Kidney disease: Code(s): N28.9 - Disorder of kidney and ureter, unspecified Status: Acute Assessment and Plan: Elevated BUN and creatinine compared to 2020; unsure if chronic or acute kidney disease. Poor appetite, has not been eating or drinking Add IV fluids and recheck in the morning (4) Abnormal CT scan: Code(s): R93.89 - Abnormal findings on diagnostic imaging of other specified body structures Status: Acute Assessment and Plan: Widespread lytic lesions of the bone consistent with multiple myeloma versus metastatic disease. Evaluation per hospitalist (5) CAD (coronary artery disease): Code(s): I25.10 - Atherosclerotic heart disease of ute coronary artery without angina pectoris Status: Acute Assessment and Plan: History of CAD, CABG. History suggests he has stable angina (6) Abnormal blood test: Status: Acute Assessment and Plan: Elevated proBNP, 11,000. Nothing else to suggest heart failure. History of Present Illness History of Present Illness Consult date/time: 09/08/21 18:16 Requesting physician: Tony Morales MD Reason For Visit: NSTEMI/dehydration/depression Narrative: Ron Hickey is a 81 y.o. male whom I was asked to see at the request of the ER physician Dr. Morales for my advice and opinion regarding his elevated troponins and possible non-STEMI in consultation. The patient has a history of coronary artery disease which is followed by Dr. Thomason. He had CABG in May 2011. He was last seen in July 2021 stable. He has statin intolerance in his declined statin therapy or other therapies for cholesterol. He has aortic stenosis and his echo in August 2021 showed mild to moderate aortic stenosis with a valve area 1.5 cm2, EF 60-65%, and moderate to severe mitral regurgitation. The patient had fairly mild case of COVID in June (however he lost both of his daughters from clemons virus in the past 6 months). He has been weak and not feeling well ever since. He complains of rubbery legs and he can not walk well because of some achiness and discomfort as well as severe weakness of his hips and legs. This morning his made him to come to the emergency room because he was so weak he could hardly walk. He relates that he did wake up last night with sudden punching type chest pains that came and went very quickly. There was no sustained chest discomfort. He came to the ER showed elevated troponins and he was stated on a heparin gtt. Troponins have been: 1.270, 1.240, CPK elevated at 391, proBNP was 54208. Chest x-ray suggested a left lower lobe pneumonia. CT scan did not show CHF pulmonary emboli or pneumonia but did show widespread lesions in the bones consistent with multiple myeloma or metastatic dis Called , pt not eating or drinking, loosing weight, hard time walking. Last night moaned in pain all night, a sharp pain like something was being stuck in him. Can't lie on left side as it is too painful. Pain in pelvis. ease. T
[2021-09-08 18:57] LABS: Partial Thromboplastin Time 67.4 SECONDS (22.3-36.8)
--- NOTE | 2021-09-08 20:30 | PM.IMHP ---
H&P: HPI History of Present Illness Date/Time: Patient requires inpatient monitoring with expected length of stay to exceed 2 midnights for management of care. 09/08/21 20:30 Chief Complaint: Chest pain Narrative: Mr. Hickey is a 81-year-old gentleman who presented emergency room with complaints of chest discomfort and shortness of breath. Patient states that since he was diagnosed with COVID in June he has progressively become weaker and had increasing shortness of breath and chest discomfort. Patient states that he had been having chest discomfort in his midsternal area that would radiate to his left shoulder off and on. Patient states that the pain is now present daily with walking or ambulating upstairs. Patient states he has had a very poor appetite since June because he does not feel like eating. Patient states he can taste is still without any difficulty. Patient states he also has generalized body pain at times. Patient states he feels like he has lost quite a bit of weight over the last few months. Patient states that he feels that his lower extremities are weaker than his upper extremities at times. Upon evaluation in emergency room patient was noted to have a troponin at 1.27 and a heparin drip was started. Patient denies a lightheadedness, dizziness, syncopal, or near syncopal episodes. Patient states he has a known history of CAD status post 2 vessel bypass, dyslipidemia, hypertension, BPH, and bladder cancer. Patient states for his bladder cancer the cancer is tumor was removed and he received no further treatment. Review of Systems Review of Systems: A 12 point review of systems was completed patient all pertinent positive and negative per HPI the remainder are unremarkable. [facility] Past Medical History Medical History (Updated 09/08/21 @ 20:36 by Radha Lazo APRN) Adenomatous colon polyp BPH (benign prostatic hyperplasia) CAD (coronary artery disease) History of bladder cancer HLD (hyperlipidemia) HTN (hypertension) TIA (transient ischemic attack) 2015; has remained on dual anti-platelet therapy. Surgical History Surgical History (Updated 09/08/21 @ 19:04 by Sadie Richards MD) H/O colonoscopy Hx of CABG 2010 after failed stent. 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 Has 2 surviving sons, 2 daughters of LAURA in 2020 and 2021. No alcohol or cigarettes since 1969. Smoking packs per day: 1 Smoking cigarettes per day: 20.0 Years smoked: 13 Smoking pack-years: 13.00 Smoking status: Never smoker Tobacco type: cigarettes Second hand tobacco smoke exposure: No Smoking end date: 06/26/71 Alcohol intake: former Substance use: never Substance use type: does not use Gender identity (if verbalized by the patient): Male Spiritual care concerns: No Meds Home Medications and Allergies Home Medications Medication Instructions Recorded Confirmed Type finasteride 5 mg PO DAILY 05/22/19 07/01/20 History tamsulosin 0.4 mg PO HS 05/22/19 07/01/20 History aspirin 325 mg PO DAILY 07/01/20 07/01/20 History prednisone 20 mg PO BID #6 tablet 08/06/20 Rx Allergies Allergy/AdvReac Type Severity Reaction Status Date / Time atorvastatin Allergy Unknown Muscle Pain Verified 08/06/20 18:50 azithromycin Allergy Unknown Rash Verified 08/06/20 18:50 doxycycline Allergy Unknown Rash Verified 08/06/20 18:50 pravastatin Allergy Unknown Muscle Pain Verified 08/06/20 18:50 rosuvastatin Allergy Unknown Muscle Pain Verified 08/06/20 18:50 Ywpbumf-XJM-DjY Reductase Allergy Unknown Muscle Pain
[2021-09-08] MEDS: HEPARIN SODIUM 5,000 UNITS/ML VIAL 3000 UNITS IV PUSH (20:53)
[2021-09-09] VITALS (13 sets, daily range): BP systolic 107–148; BP diastolic 47–56; PULSE 62–85; RESP 16–18; TEMP 35.8–37.1; O2SAT 94–98; BMI 22.4
[2021-09-09] MEDS: SODIUM CHLORIDE 0.9% IV 1,000 ML 100 ML IV CONT ×3 (02:30→22:55)
[2021-09-09 02:55] LABS: Add Urine Microscopic? YES; Appearance Urine Cloudy (Clear); Bacteria Urine Trace /hpf; Bilirubin Urine Negative (Negative); Blood Urine 1+ (Negative); Color Urine Yellow (Yellow); Glucose Urine UA Negative (Negative); Ketones Urine Negative (Negative); Leukocyte Esterase Ur Trace LEU/UL (Negative); Mucus Urine Rare /lpf; Nitrate Urine Negative (Negative); Protein Urine 1+ mg/dL (Negative); Specific Grav Ur 1.016 (1.001-1.035); Squamous Epithelial Cell Urine Rare /hpf (Few); WBC Urine 21-30 /hpf
[2021-09-09 03:56] LABS: Partial Thromboplastin Time 105.5 SECONDS (22.3-36.8)
[2021-09-09 03:58] LABS: Anion Gap 5 mmol/L (8-16); Blood Urea Nitrogen 31 mg/dL (9-20); Calcium 8.8 mg/dL (8.4-10.2); Carbon Dioxide 27 mmol/L (22-30); Chloride 106 mmol/L (98-107); Estimated CRCL calculation 41 ml/min; Estimated Glomerular Filt Rate 49; Glucose 86 mg/dL (65-110); Potassium 3.6 mmol/L (3.4-5.0); Sodium 138 mmol/L (137-145)
[2021-09-09 04:15] LABS: Hematocrit 33.3 % (42.0-52.0); Hemoglobin 11.2 g/dL (14.0-18.0); Mean Corpuscular HGB Conc 33.6 g/dl (32-36); Mean Corpuscular Hemoglobin 33.2 pg (26-34); Mean Corpuscular Volume 98.8 fl (80-100); Mean Platelet Volume 10.3 fl (7.4-10.4); Platelet Count Result 223 k/mm3 (150-375); Red Blood Count 3.37 M/mm3 (4.6-6.20); Red Cell Distribution Width 12.4 % (11.5-14.5); White Blood Count 8.7 K/mm3 (4.5-10.0)
--- NOTE | 2021-09-09 06:00 | ECG_ITS ---
Measurements Intervals [place] Rate: 68 P: 38 CA: 229 QRS: -38 QRSD: 120 T: 14 QT: 385 QTc: 412 Interpretive Statements SINUS RHYTHM WITH FIRST DEGREE AV BLOCK POSSIBLE LEFT ATRIAL ENLARGEMENT [-0.1mV P WAVE IN V1/V2] MARKED LEFT AXIS DEVIATION [QRS AXIS < -30] POSSIBLE LEFT VENTRICULAR HYPERTROPHY [VOLTAGE CRITERIA PLUS LAE OR QRS WIDENING] COMPARED TO ECG 09/08/2021 10:13:18 NO SIGNIFICANT CHANGES Electronically Signed On 09-09-2021 18:43:56 CDT by Sadie Richards M.D.
[2021-09-09] MEDS: ASPIRIN 81 MG CHEWABLE TABLET PO (08:11)
[2021-09-09 09:44] LABS: Partial Thromboplastin Time 81.6 SECONDS (22.3-36.8)
--- NOTE | 2021-09-09 10:47 | PCCCNOTE ---
On 09/09/21, the student, [Sabra Bright], provided care and completed [facility] documentation on this patient. I have reviewed the student's documentation and agree with the findings.
[2021-09-09] MEDS: HEPARIN SOD/D5W 100 UNITS/ML 25,000 UNITS/250 ML BAG 11 UNITS IV CONT ×2 (12:46→16:05)
--- NOTE | 2021-09-09 12:58 | PDONCCN ---
HPI - Date of Consult Date/Time: 09/09/21 12:58 Requesting Physician: Best Alfaro MD Primary Care Provider: Vinny Blanton, - Consult Narrative Reason for consult: Widespread lytic lesion Narrative: Ron Hickey is a 81 year old male with history of bladder cancer status post TURBT 5 years ago and has been followed by Dr. Valencia. Patient started having more weakness and fatigue since COVID infection in June of 2021. He has been having more short of breath with generalized weakness. Denies any neuropathy. He does have some bilateral shoulder pain. He has lost 14 lb weight recently. He has poor appetite. CT chest done on September 08 showed widespread lytic lesions of the bone consistent with multiple myeloma versus metastatic disease with mild emphysema. Patient quit smoking and drinking more than 50 years ago. His family history of liver cancer in father and colon cancer in mother. He denies any melena hematochezia. Denies any other complaint. Review of Systems - Review of Systems All systems reviewed & are unremarkable except as noted in HPI and bel - Neurologic Reports weakness, Denies abnormal speech, Denies behavioral changes, Denies confusion [facility] Medical History: Medical History (Last Updated 09/08/21 @ 19:05 by Sadie Richards MD) Adenomatous colon polyp BPH (benign prostatic hyperplasia) CAD (coronary artery disease) History of bladder cancer HLD (hyperlipidemia) HTN (hypertension) TIA (transient ischemic attack) 2015; has remained on dual anti-platelet therapy. Surgical History: Surgical History (Last Updated 09/08/21 @ 19:04 by Sadie Richards MD) H/O colonoscopy Hx of CABG 2010 after failed stent. S/P primary angioplasty with coronary stent Family History: Family History (Last Updated 09/08/21 @ 19:06 by Sadie Richards MD) Father Liver cancer Mother Carcinoma of colon Other Family history of coronary artery disease Family history of malignant neoplasm - Social History Social History: Social History (Last Updated 09/08/21 @ 19:22 by Sadie Richards MD) Gender Identity: Gender identity (if verbalized by the patient): Male Alcohol Use: Alcohol intake: former Substance Use: Substance use: never Substance use type: does not use Others: Spiritual care concerns: No Smoking Status: Smoking status: Never smoker Tobacco type: cigarettes Second hand tobacco smoke exposure: No Smoking end date: 06/26/71 Smoking Pack-years: Smoking packs per day: 1 Smoking cigarettes per day: 20.0 Years smoked: 13 Smoking pack-years: 13.00 Meds Home Medications Medication Instructions Recorded Confirmed Type finasteride 5 mg PO DAILY 05/22/19 09/09/21 History tamsulosin 0.4 mg PO HS 05/22/19 09/09/21 History aspirin 325 mg PO DAILY 07/01/20 09/09/21 History Allergies Allergy/AdvReac Type Severity Reaction Status Date / Time atorvastatin Allergy Unknown Muscle Pain Verified 08/06/20 18:50 azithromycin Allergy Unknown Rash Verified 08/06/20 18:50 doxycycline Allergy Unknown Rash Verified 08/06/20 18:50 pravastatin Allergy Unknown Muscle Pain Verified 08/06/20 18:50 rosuvastatin Allergy Unknown Muscle Pain Verified 08/06/20 18:50 Uvklpwu-XHP-MfD Reductase Allergy Unknown Muscle Pain Verified 08/06/20 18:50 Inhibitor [Jqrrzhu-Ouj-Ags Reductase Inhibitor] tetracycline Allergy Unknown Rash Verified 08/06/20 18:50 shellfish derived Allergy Itching Verified 09/08/21 10:04 oxycodone AdvReac Unknown Hallucinati Verified 09/08/21 12:28 ng Results - Labs CBC & Chem 7: 09/09/21 03:31 09/09/21 03:31 Labs: Short CBC 09/09/21 Range/Units 03:31 WBC 8.7 (4.5-10.0) K/mm3 Hgb 11.2 L (14.0-18.0) g/dL Hct 33.3 L (42.0-52.0) % Plt Count 223 (150-375) k/mm3 BMP 09/09/21 03:31 Sodium 138 Potassium 3.6 Chloride 106 Carb
[2021-09-09 13:47] LABS: Immunoglobulin A 63 mg/dL (70-400); Immunoglobulin G 950 mg/dL (700-1600)
[2021-09-09 14:09] LABS: Prostate Specific Antigen 1.7 ng/mL (< OR = 4.0)
--- NOTE | 2021-09-09 14:11 | WPDPN ---
Progress Note: A&P Assessment and Plan (1) Acute kidney injury: Code(s): N17.9 - Acute kidney failure, unspecified Status: Acute (2) CAD (coronary artery disease): Code(s): I25.10 - Atherosclerotic heart disease of [place] coronary artery without angina pectoris Status: Acute (3) Abnormal CT scan: Code(s): R93.89 - Abnormal findings on diagnostic imaging of other specified body structures Status: Acute (4) Kidney disease: Code(s): N28.9 - Disorder of kidney and ureter, unspecified Status: Acute Additional Plan # metastatic disease lytic lesions, soft tissue mass left 3rd rib -patient likely has metastatic cancer from his previous bladder cancer versus new multiple myeloma -consulting Dr. Morelos Oncology for further workup. SPEP UPEP ordered -it appears biopsy will depend on the lab results, will hold off on IR guided biopsy of the mass and defer to Oncology -h/o bladder cancer # anemia -iron studies, B12, folic acid ordered, will follow-up results # elevated troponin -atypical chest pain, ACS -stopping heparin -appreciate Cardiology consult believes troponin may be incidental finding, chest pain likely secondary to cancer -of note patient has CAD status post CABG x2 in 2010 # other chronic conditions -history of TIA 2016 on dual antiplatelet therapy -BPH: continue home tamsulosin and finasteride -essential hypertension: No home medications, continue monitoring blood pressure -hyperlipidemia: No home medications Diet: Heart healthy DVT prophylaxis: SCDs, will stop heparin drip as patient does not have ACS Code status: Full code Disposition: Pending oncology workup, patient will likely be discharged home soon Time Spent With Patient Time with patient: 25 - 35 minutes Subjective Date/time seen: 09/09/21 14:11 Patient seen and examined. He is in IVETTE, elevated troponins, CT scan of says consistent with metastatic disease prior to consulted oncologist. Patient may have multiple myeloma so we are sending workup for multiple myeloma. Free light chains, SPEP, UPEP. Working up anemia with vitamin B12 and folic acid and iron panel. Cardiology please his atypical chest pain may be skeletal has patient has metastasis from likely cancer with elevated troponin being incidental finding. We will stop heparin drip. Patient has a lesion on at 3rd left rib soft tissue mass which we should biopsy, consulting IR for biopsy. Consult to Dr. Morelos for cancer workup. Patient and updated bedside about likely cancer diagnosis. Patient denies fever, chills, nausea vomiting, diarrhea. He still endorses some chest pain. Review of Systems Review of Systems: All systems reviewed & are unremarkable except as noted in HPI and below Exam Narrative: - GENERAL: Pleasant thin male in no acute distress sitting comfortably in bed. - EYES: EOMI. Anicteric. - HENT: Moist mucous membranes. - LUNGS: Clear to auscultation bilaterally, no wheezing, rhonchi, or rales. - CARDIOVASCULAR: Regular rate and rhythm. No murmur. No JVD. - ABDOMEN: Soft, non-tender and non-distended. No palpable masses. - EXTREMITIES: No edema. Peripheral pulses 2+. Non-tender. - NEUROLOGIC: No focal neurological deficits. CN II-XII grossly intact. - PSYCHIATRIC: Awake, Alert and oriented x 3. Appropriate mood and affect. - SKIN: No rashes or lesions. Warm. - LYMPH: No cervical lymphadenopathy. Objective Data Vital Signs Vital Signs: Vital Signs - 24 hr 09/08/21 14:40 09/08/21 16:00 09/08/21 18:00 Temperature 36.9 C 36.6 C Pulse Rate 66 63 66 Respiratory Rate 16 20 Blood Pressure 117/58 L 122/54 L Pulse Oximetry 98 97 09/08/21 20:00 09/08/21 22:00 09/09/21 00:00 Temperature 36.7 C 36.8 C Pulse Rate 69 72 71 Respiratory Rate 16 16 Blood Pressure 115/53 L 107/47 L Pulse Oximetry 97 94 09/09/21 02:00 09/09/21 04:00 09/09/21 06:00 Temperature 36.4 C L Pulse Rate 68 67 62 Respiratory Rate 16 B
[2021-09-09 14:25] LABS: Immunoglobulin M < 25 mg/dL (40-230)
[2021-09-09 14:36] LABS: Iron 120 ug/dL (49-181)
[2021-09-09 14:46] LABS: Folic Acid > 20.0 ng/mL (2.76->20); Percent Iron Saturation 43 % (20-50)
--- NOTE | 2021-09-09 15:04 | PM.PNCARD ---
Progress Note: A&P Assessment and Plan (1) Elevated troponin: Code(s): R77.8 - Other specified abnormalities of plasma proteins Status: Acute Assessment and Plan: Patient presents with noncardiac complaints, but his today mentions some substernal vague discomfort. He does have elevated troponins, but so far this looks like a flat curve. EKGs show no ischemia The elevated troponin may be incidental finding However now that the patient is telling me he has substernal discomfort at times and he has a significant troponin rise it may be prudent to check a Lexiscan tomorrow. It would be reassuring if it were normal, but also it would not surprise me if it shows an abnormality since he has had a exertional angina the past few years. Repet troponin to see if curve is still flat or trending down. Keep on heparin for now. (2) Lower extremity weakness: Code(s): R29.898 - Other symptoms and signs involving the musculoskeletal system Status: Acute Assessment and Plan: Patient's main complaint which brought him to the emergency room was extreme weakness particularly weakness of his legs. Has an elevated CPK of uncertain etiology CT scan showed widespread bony metastasis. This may relate to his extreme weakness. (3) Kidney disease: Code(s): N28.9 - Disorder of kidney and ureter, unspecified Status: Acute Assessment and Plan: Elevated BUN and creatinine compared to 2020; unsure if chronic or acute kidney disease. Poor appetite, has not been eating or drinking Cont V fluids and recheck (4) Abnormal CT scan: Code(s): R93.89 - Abnormal findings on diagnostic imaging of other specified body structures Status: Acute Assessment and Plan: Widespread lytic lesions of the bone consistent with multiple myeloma versus metastatic disease. Evaluation per hospitalist (5) CAD (coronary artery disease): Code(s): I25.10 - Atherosclerotic heart disease of [place] coronary artery without angina pectoris Status: Acute Assessment and Plan: History of CAD, CABG. History suggests he has stable angina (6) Abnormal blood test: Status: Acute Assessment and Plan: Elevated proBNP, 11,000. Nothing else to suggest heart failure. Subjective Date/time seen: 09/09/21 15:04 Interval history: Follow-up for history of CAD, elevated troponins, weakness. Patient came to the ER for lower extremity weakness, ?I could hardly walk. ? Date of service 09/09/2021: Patient with lytic bone lesions being evaluated by Dr. Morelos for possible multiple myeloma or metastatic cancer. Might be feeling a little better, less weak. Has been getting IV fluids 100 cc an hour. Still with a lot of vague discomfort in the back and shoulders, now mentions some okay chest discomfort, nonspecific, intermittent. Vague meandering historian at times. EKG today: NSR rate 68, first-degree AV block, left axis deviation, LVH, no ischemic changes. Personally reviewed Review of Systems Constitutional: Constitutional: Reports fatigue and Reports weakness Eyes: Eyes: Reports no additional eye complaints ENT: Denies epistaxis Cardiovascular: Cardiovascular: Reports chest pain, Denies pedal edema and Denies leg edema Respiratory: Respiratory: Denies dyspnea Gastrointestinal: Gastrointestinal: Denies abdominal pain Genitourinary: Genitourinary: Denies dysuria Musculoskeletal: Musculoskeletal: Reports back pain, Reports myalgias and Reports arthralgias Integumentary/Breasts: Skin/Breast: Denies rash Neurologic: Reports system reviewed and no additional complaints, except as documented Psychiatric: Psychiatric: Reports no additional psychiatric complaints Comments: Trying to have a humerous attitude, I'm going to go out of here joking! Exam Const: General: comfortable and no acute distress HENMT: Mouth: Yes moist mucous membranes Eyes: EOM: EOMs intact bila
[2021-09-09] MEDS: TAMSULOSIN HCL 0.4 MG CAPSULE PO (19:51)
[2021-09-09 22:13] LABS: Partial Thromboplastin Time 80.5 SECONDS (22.3-36.8)
[2021-09-10] VITALS (11 sets, daily range): BP systolic 111–132; BP diastolic 50–55; PULSE 75–95; RESP 17–28; TEMP 35.8–36.8; O2SAT 94–97
[2021-09-10 04:31] LABS: Partial Thromboplastin Time 83.7 SECONDS (22.3-36.8)
[2021-09-10 05:23] LABS: Anion Gap 1 mmol/L (8-16); Blood Urea Nitrogen 24 mg/dL (9-20); Calcium 8.6 mg/dL (8.4-10.2); Carbon Dioxide 29 mmol/L (22-30); Chloride 106 mmol/L (98-107); Estimated CRCL calculation 44 ml/min; Estimated Glomerular Filt Rate 53; Glucose 77 mg/dL (65-110); Magnesium 1.5 mg/dL (1.6-2.3); Potassium 3.6 mmol/L (3.4-5.0); Sodium 136 mmol/L (137-145); Troponin I 0.894 ng/mL (0.000-0.034)
--- NOTE | 2021-09-10 08:40 | PM.PNCARD ---
Progress Note: A&P Assessment and Plan (1) Elevated troponin: Code(s): R77.8 - Other specified abnormalities of plasma proteins Status: Acute Assessment and Plan: Patient presents with noncardiac complaints, but his today mentions some substernal vague discomfort. He does have elevated troponins, but so far this looks like a flat curve. EKGs show no ischemia The elevated troponin may be incidental finding However due to patient c/o substernal discomfort at times and he has a significant troponin lexiscan was performed this morning. It would be reassuring if it were normal, but also it would not be surprising if it shows an abnormality since he has had a exertional angina the past few years. Repeat troponin downtrending Keep on heparin for now. Further recs to follow review of lexiscan results (2) Lower extremity weakness: Code(s): R29.898 - Other symptoms and signs involving the musculoskeletal system Status: Acute Assessment and Plan: Patient's main complaint which brought him to the emergency room was extreme weakness particularly weakness of his legs. Has an elevated CPK of uncertain etiology CT scan showed widespread bony metastasis. This may relate to his extreme weakness. (3) Kidney disease: Code(s): N28.9 - Disorder of kidney and ureter, unspecified Status: Acute Assessment and Plan: Elevated BUN and creatinine compared to 2020; unsure if chronic or acute kidney disease. Poor appetite, has not been eating or drinking Cont V fluids and recheck (4) Abnormal CT scan: Code(s): R93.89 - Abnormal findings on diagnostic imaging of other specified body structures Status: Acute Assessment and Plan: Widespread lytic lesions of the bone consistent with multiple myeloma versus metastatic disease. Evaluation per hospitalist (5) CAD (coronary artery disease): Code(s): I25.10 - Atherosclerotic heart disease of [place] coronary artery without angina pectoris Status: Acute Assessment and Plan: History of CAD, CABG. History suggests he has stable angina (6) Abnormal blood test: Status: Acute Assessment and Plan: Elevated proBNP, 11,000. Nothing else to suggest heart failure. Subjective Date/time seen: 09/10/21 08:40 Interval history: Follow-up for history of CAD, elevated troponins, weakness. Patient came to the ER for lower extremity weakness, ?I could hardly walk. ? Date of service 09/09/2021: Patient with lytic bone lesions being evaluated by Dr. Morelos for possible multiple myeloma or metastatic cancer. Might be feeling a little better, less weak. Has been getting IV fluids 100 cc an hour. Still with a lot of vague discomfort in the back and shoulders, now mentions some okay chest discomfort, nonspecific, intermittent. Vague meandering historian at times. EKG today: NSR rate 68, first-degree AV block, left axis deviation, LVH, no ischemic changes. Personally reviewed Date of service 09/10/2021: Patient feels ok today. Still has complaint of some left upper chest tightness. No shortness of breath. Review of Systems Constitutional: Constitutional: Reports body ache(s), Reports fatigue, Reports lethargy and Reports weakness Eyes: Eyes: Reports no additional eye complaints ENT: Denies epistaxis Cardiovascular: Cardiovascular: Reports chest pain, Denies pedal edema, Denies leg edema, Denies dyspnea and Reports dyspnea on exertion Respiratory: Respiratory: Denies cough, Denies dyspnea and Reports dyspnea on exertion Gastrointestinal: Gastrointestinal: Denies abdominal pain Genitourinary: Genitourinary: Denies dysuria Musculoskeletal: Musculoskeletal: Reports back pain, Reports myalgias, Reports arthralgias and Reports stiffness Integumentary/Breasts: Skin/Breast: Denies rash Neurologic: Reports system reviewed and no additional complaints, except as documented, Denies Abnormal speech
--- NOTE | 2021-09-10 08:47 | PCPTNOTE ---
Attempted to see patient for physical therapy however patient out of room at this time.
--- NOTE | 2021-09-10 10:49 | PCCCNOTE ---
On 09/10/21, the student, [Sabra Bright ], provided care and completed [facility] documentation on this patient. I have reviewed the student's documentation and agree with the findings.
[2021-09-10] MEDS: MAGNESIUM SULF 4 GM/WATER100ML 4 GM/100 ML BAG IVPB (11:42)
[2021-09-10] MEDS: SODIUM CHLORIDE 0.9% IV 1,000 ML 100 ML IV CONT ×2 (11:42→23:06)
[2021-09-10] MEDS: FINASTERIDE 5 MG TABLET PO (13:09)
--- NOTE | 2021-09-10 13:30 | PC.NURSE ---
This patient, Ron Hickey, was transferred to [255 ] on 09/10/21 at 1332. Personal belongings sent with patient. Report given to [Magdalena MCCANN ]. Appropriate documentation sent with patient.
--- NOTE | 2021-09-10 14:11 | PC.NURSE ---
pt transferred from IMU to room 255 via bed, oriented to new room and environment, reviewed plan of care and MD orders, pt resting comfortably without complaints, will continue to monitor
--- NOTE | 2021-09-10 15:17 | EST_ITS ---
Patient Info Name: Ron Hickey Age: 81 years : 1940 Gender: Male Ht: 72 in Wt: 165 lbs BSA: 1.95 m2 Exam Date: 09/10/2021 8:33 AM Exam Location: [facility] Stress Patient Status: Inpatient Admit Date: 09/08/2021 Staff Ordering Physician: Sadie Richards MD Attending Provider: Best Alfaro MD Exercise Technologist: Gayathri Ellsworth RDCS Exam Type: CA stress [place] w [place] Study Info Indications R07.9 - Chest pain, unspecified A regadenoson stress test was performed. Summary 1. Normal sinus rhythm. 2. Left anterior superior hemiblock. 3. Occasional PVC. 4. No ST segment changes induced by Lexiscan. 5. Myocardial perfusion imaging study to be interpreted by radiologist. Protocol: Lexiscan Stress ECG Details Stage: REST Duration (min): 6 min : 21 sec HR (bpm): 90 SBP (mmHg): 155 DBP (mmHg): 72 Stage: REST Duration (min): 14 min : 18 sec HR (bpm): 93 SBP (mmHg): 155 DBP (mmHg): 72 Stage: STAGE 1 Duration (min): 0 min : 59 sec HR (bpm): 96 SBP (mmHg): 157 DBP (mmHg): 77 Stage: RECOVERY Duration (min): 1 min : 0 sec HR (bpm): 103 SBP (mmHg): 146 DBP (mmHg): 72 Stage: RECOVERY Duration (min): 2 min : 0 sec HR (bpm): 103 SBP (mmHg): 146 DBP (mmHg): 72 Stage: RECOVERY Duration (min): 3 min : 0 sec HR (bpm): 100 SBP (mmHg): 134 DBP (mmHg): 65 Stage: RECOVERY Duration (min): 3 min : 7 sec HR (bpm): 100 SBP (mmHg): 134 DBP (mmHg): 65 Rest HR: 93 bpm Peak HR: 103 bpm Rest Sys BP: 155 mmHg Peak Sys BP: 157 mmHg Max Pred HR: 141 bpm % Max Pred HR: 73 % Target HR: 120 bpm Max RPP: 16,171 bpm*mmHg BP Response: Normal blood pressure response Termination Reason: Completed protocol Cardiac Symptoms: Shortness of breath Total Time: 1 min : 0 sec Rest Cunningham BP: 72 mmHg Peak Cunningham BP: 77 mmHg Total Dose: 0.4 mg Resting ECG Normal sinus rhythm. Left anterior superior hemiblock. Occasional PVC. Stress ECG No ST segment changes induced by Lexiscan. Report Signatures
--- NOTE | 2021-09-10 16:07 | PM.IMPN ---
Progress Note: A&P Assessment and Plan (1) Acute kidney injury: Code(s): N17.9 - Acute kidney failure, unspecified Status: Acute (2) Abnormal blood test: Status: Acute (3) CAD (coronary artery disease): Code(s): I25.10 - Atherosclerotic heart disease of [place] coronary artery without angina pectoris Status: Acute (4) Abnormal CT scan: Code(s): R93.89 - Abnormal findings on diagnostic imaging of other specified body structures Status: Acute (5) Kidney disease: Code(s): N28.9 - Disorder of kidney and ureter, unspecified Status: Acute Additional Plan # metastatic disease lytic lesions, soft tissue mass left 3rd rib -patient likely has metastatic cancer from his previous bladder cancer versus new multiple myeloma -consulting Dr. Morelos Oncology for further workup. SPEP UPEP ordered -it appears biopsy will depend on the lab results, will hold off on IR guided biopsy of the mass and defer to Oncology -h/o bladder cancer # Enterococcus UTI -asymptomatic -complicated in male urinary tract infection with history of cancer, will treat -antibiotics: Levaquin # anemia -iron studies and B12 within normal limits, folic acid elevated # elevated troponin -atypical chest pain, not ACS. Troponin down to 0.89. No active chest pain -appreciate Cardiology consult believes troponin may be incidental finding, chest pain likely secondary to cancer -of note patient has CAD status post CABG x2 in 2010 -Lexiscan 09/10/2021 shows fixed defect from previous CA, no reversible ischemia # other chronic conditions -history of TIA 2016 on dual antiplatelet therapy -BPH: continue home tamsulosin and finasteride -essential hypertension: No home medications, continue monitoring blood pressure -hyperlipidemia: No home medications Diet: Heart healthy DVT prophylaxis: SCDs, stop heparin drip. Patient likely biopsy soon will avoid blood thinners Code status: Full code Disposition: Likely home tomorrow pending oncology work up Time Spent With Patient Time with patient: 25 - 35 minutes Subjective Date/time seen: 09/10/21 16:07 Patient seen examined. Patient had Lexiscan today showing EF 54%, mild fixed perfusion defect mid anterolateral segment, not reversible ischemia. The anterior left 3rd rib cancerous lesions still showing. Discussed with oncology tomorrow if patient needs biopsy of the left 3rd rib versus bone marrow biopsy. Patient is clinically doing much better chest pain resolved. Likely home tomorrow with further cancer workup outpatient. Patient denies fever, chills, nausea, vomiting, diarrhea, chest pain or shortness with. Review of Systems Review of Systems: All systems reviewed & are unremarkable except as noted in HPI and below Exam Narrative: - GENERAL: Pleasant thin male in no acute distress sitting comfortably in bed. - EYES: EOMI. Anicteric. - HENT: Moist mucous membranes. - LUNGS: Clear to auscultation bilaterally, no wheezing, rhonchi, or rales. - CARDIOVASCULAR: Regular rate and rhythm. No murmur. No JVD. - ABDOMEN: Soft, non-tender and non-distended. No palpable masses. - EXTREMITIES: No edema. Peripheral pulses 2+. Non-tender. - NEUROLOGIC: No focal neurological deficits. CN II-XII grossly intact. - PSYCHIATRIC: Awake, Alert and oriented x 3. Appropriate mood and affect. - SKIN: No rashes or lesions. Warm. - LYMPH: No cervical lymphadenopathy. Objective Data Vital Signs Vital Signs: Vital Signs - 24 hr 09/09/21 18:00 09/09/21 19:59 09/09/21 20:00 Temperature 35.8 C L Pulse Rate 74 81 82 Respiratory Rate 16 Blood Pressure 121/50 L Pulse Oximetry 96 09/09/21 22:00 09/10/21 00:00 09/10/21 02:00 Temperature 36.2 C L Pulse Rate 85 75 86 Respiratory Rate 20 Blood Pressure 111/54 L Pulse Oximetry 97 09/10/21 04:00 09/10/21 06:00 09/10/21 08:00 Temperature 35.8 C L Pulse Rate 85 88 95 Respiratory Rate 20 20 Blood Pressure 120/50
[2021-09-10] MEDS: levoFLOXacin 750 MG TABLET PO (17:57)
[2021-09-10] MEDS: TAMSULOSIN HCL 0.4 MG CAPSULE PO (20:15)
[2021-09-11 05:46] LABS: Partial Thromboplastin Time 29.7 SECONDS (22.3-36.8)
[2021-09-11 05:58] LABS: Alanine Aminotransferase 47 U/L (4-50); Albumin Level 2.7 g/dL (3.5-5.1); Alkaline Phosphatase 91 U/L (38-126); Anion Gap 2 mmol/L (8-16); Aspartate Amino Transferase 57 U/L (17-59); Bilirubin,Total 0.8 mg/dL (0.2-1.3); Blood Urea Nitrogen 17 mg/dL (9-20); Calcium 8.6 mg/dL (8.4-10.2); Carbon Dioxide 28 mmol/L (22-30); Chloride 106 mmol/L (98-107); Estimated CRCL calculation 45 ml/min; Estimated Glomerular Filt Rate 53; Glucose 93 mg/dL (65-110); Magnesium 1.9 mg/dL (1.6-2.3); Potassium 3.7 mmol/L (3.4-5.0); Sodium 136 mmol/L (137-145)
[2021-09-11 06:00] VITALS: BP 119/64; PULSE 89; RESP 16; TEMP 36.1; O2SAT 96
[2021-09-11] MEDS: FINASTERIDE 5 MG TABLET PO (08:29)
--- NOTE | 2021-09-11 11:02 | PM.PNCARD ---
Progress Note: A&P Assessment and Plan (1) Elevated troponin: Code(s): R77.8 - Other specified abnormalities of plasma proteins Status: Acute Assessment and Plan: Patient presents with noncardiac complaints, but his today mentions some substernal vague discomfort. He does have elevated troponins, but so far this looks like a flat curve. EKGs show no ischemia The elevated troponin may be incidental finding Stress test shows no significant ischemia. Small fixed defect only. Restart low-dose aspirin 81 mg p.o. daily unless it is being held for biopsy purposes DC IV fluids. (2) Lower extremity weakness: Code(s): R29.898 - Other symptoms and signs involving the musculoskeletal system Status: Acute Assessment and Plan: Patient's main complaint which brought him to the emergency room was extreme weakness particularly weakness of his legs. Has an elevated CPK of uncertain etiology CT scan showed widespread bony metastasis. This may relate to his extreme weakness. (3) Kidney disease: Code(s): N28.9 - Disorder of kidney and ureter, unspecified Status: Acute Assessment and Plan: Elevated BUN and creatinine compared to 2020; unsure if chronic or acute kidney disease. Poor appetite, has not been eating or drinking DC IV fluids (4) Abnormal CT scan: Code(s): R93.89 - Abnormal findings on diagnostic imaging of other specified body structures Status: Acute Assessment and Plan: Widespread lytic lesions of the bone consistent with multiple myeloma versus metastatic disease. Evaluation per hospitalist (5) CAD (coronary artery disease): Code(s): I25.10 - Atherosclerotic heart disease of [place] coronary artery without angina pectoris Status: Acute Assessment and Plan: History of CAD, CABG. History suggests he has stable angina (6) Abnormal blood test: Status: Acute Assessment and Plan: Elevated proBNP, 11,000. Nothing else to suggest heart failure. Subjective Date/time seen: 09/11/21 11:02 Interval history: Follow-up for history of CAD, elevated troponins, weakness. Patient came to the ER for lower extremity weakness, ?I could hardly walk. ? Date of service 09/09/2021: Patient with lytic bone lesions being evaluated by Dr. Morelos for possible multiple myeloma or metastatic cancer. Might be feeling a little better, less weak. Has been getting IV fluids 100 cc an hour. Still with a lot of vague discomfort in the back and shoulders, now mentions some okay chest discomfort, nonspecific, intermittent. Vague meandering historian at times. EKG today: NSR rate 68, first-degree AV block, left axis deviation, LVH, no ischemic changes. Personally reviewed Date of service 09/10/2021: Patient feels ok today. Still has complaint of some left upper chest tightness. No shortness of breath. Date of service 09/11/2021: Continues have some vague chest tightness at night that improved whenever he lifts his arms above his head. No shortness of breath. No syncope Review of Systems Constitutional: Constitutional: Reports body ache(s), Reports fatigue, Reports lethargy and Reports weakness Eyes: Eyes: Reports no additional eye complaints ENT: Denies epistaxis Cardiovascular: Cardiovascular: Reports chest pain, Denies pedal edema, Denies leg edema, Denies dyspnea and Reports dyspnea on exertion Respiratory: Respiratory: Denies cough, Denies dyspnea and Reports dyspnea on exertion Gastrointestinal: Gastrointestinal: Denies abdominal pain Genitourinary: Genitourinary: Denies dysuria Musculoskeletal: Musculoskeletal: Reports back pain, Reports myalgias, Reports arthralgias and Reports stiffness Integumentary/Breasts: Skin/Breast: Denies rash Neurologic: Reports system reviewed and no additional complaints, except as documented, Denies Abnormal speech present, Denies behavioral changes, Denies confusion and Reports weak
--- NOTE | 2021-09-11 12:25 | PM.IMPN ---
Progress Note: A&P Assessment and Plan (1) Acute kidney injury: Code(s): N17.9 - Acute kidney failure, unspecified Status: Acute (2) Abnormal blood test: Status: Acute (3) CAD (coronary artery disease): Code(s): I25.10 - Atherosclerotic heart disease of [place] coronary artery without angina pectoris Status: Acute (4) Abnormal CT scan: Code(s): R93.89 - Abnormal findings on diagnostic imaging of other specified body structures Status: Acute (5) Kidney disease: Code(s): N28.9 - Disorder of kidney and ureter, unspecified Status: Acute Additional Plan # metastatic disease lytic lesions, soft tissue mass left 3rd rib -patient likely has metastatic cancer from his previous bladder cancer versus new multiple myeloma -consulting Dr. Morelos Oncology for further workup. SPEP UPEP ordered -it appears biopsy will depend on the lab results, will hold off on IR guided biopsy of the mass and defer to Oncology -h/o bladder cancer -patient will need biopsy follow-up plan prior to discharge # Enterococcus UTI -asymptomatic -complicated in male urinary tract infection with history of cancer, will treat -antibiotics: Levaquin will discharge to complete 7 day course # anemia -iron studies and B12 within normal limits, folic acid elevated # elevated troponin -atypical chest pain, not ACS. Troponin down to 0.89. No active chest pain -appreciate Cardiology consult believes troponin may be incidental finding, chest pain likely secondary to cancer -of note patient has CAD status post CABG x2 in 2010 -Lexiscan 09/10/2021 shows fixed defect from previous [place], no reversible ischemia -will restart aspirin 81 mg on discharge, to start after biopsy done # other chronic conditions -history of TIA 2016 on dual antiplatelet therapy -BPH: continue home tamsulosin and finasteride -essential hypertension: No home medications, continue monitoring blood pressure -hyperlipidemia: No home medications Diet: Heart healthy DVT prophylaxis: SCDs, stop heparin drip. Patient likely biopsy soon will avoid blood thinners Code status: Full code Disposition: Home today, pending on oncology follow-up plan Time Spent With Patient Time with patient: 25 - 35 minutes Subjective Date/time seen: 09/11/21 12:25 Patient seen examined. He is doing well with no new complaints. Working well with physical therapy. Patient will go home today. I am trying to arrange for follow-up plan for biopsy either bone biopsy by IR or bone marrow biopsy by oncologist. We will hold aspirin until biopsy can be done. Afterwards he needs to be on aspirin 81 daily. No more active chest pain no ACS. He is doing well with the Levaquin for his Enterococcus UTI. Patient will be discharged home with Levaquin Rx. Patient denies fever, chills, nausea vomiting, diarrhea, shortness of breath. He endorses some chest pain that is positional. Review of Systems Review of Systems: All systems reviewed & are unremarkable except as noted in HPI and below Exam Narrative: - GENERAL: Pleasant thin male in no acute distress sitting comfortably in bed. - EYES: EOMI. Anicteric. - HENT: Moist mucous membranes. - LUNGS: Clear to auscultation bilaterally, no wheezing, rhonchi, or rales. - CARDIOVASCULAR: Regular rate and rhythm. No murmur. No JVD. Nontender on palpation - ABDOMEN: Soft, non-tender and non-distended. No palpable masses. - EXTREMITIES: No edema. Peripheral pulses 2+. Non-tender. - NEUROLOGIC: No focal neurological deficits. CN II-XII grossly intact. - PSYCHIATRIC: Awake, Alert and oriented x 3. Appropriate mood and affect. - SKIN: No rashes or lesions. Warm. - LYMPH: No cervical lymphadenopathy. Objective Data Vital Signs Vital Signs: Vital Signs - 24 hr 09/10/21 14:35 09/10/21 16:33 09/10/21 19:02 Temperature 36.6 C 36.8 C Pulse Rate 85 81 Respiratory Rate 28 H 17 Blood Pressure 123/50 L 132/55 L Pulse Oximetry 97 95 97
--- NOTE | 2021-09-11 13:16 | PM.DS ---
DS: Admitting Diagnosis Discharge Date 09/11/21 Admitting Diagnosis Elevated troponin, acute kidney injury DS: Discharge Diagnosis Discharge Diagnosis (1) Bone mass: Code(s): M89.8X9 - Other specified disorders of bone, unspecified site Status: Acute (2) Acute kidney injury: Code(s): N17.9 - Acute kidney failure, unspecified Status: Acute (3) Abnormal blood test: Status: Acute (4) CAD (coronary artery disease): Code(s): I25.10 - Atherosclerotic heart disease of [place] coronary artery without angina pectoris Status: Acute (5) Abnormal CT scan: Code(s): R93.89 - Abnormal findings on diagnostic imaging of other specified body structures Status: Acute (6) Kidney disease: Code(s): N28.9 - Disorder of kidney and ureter, unspecified Status: Acute (7) Lower extremity weakness: Code(s): R29.898 - Other symptoms and signs involving the musculoskeletal system Status: Acute (8) Elevated troponin: Code(s): R77.8 - Other specified abnormalities of plasma proteins Status: Acute DS: Summary Hospital Course Reason for hospitalization: Elevated troponin Hospital Course: Patient is a 81-year-old male with past medical history of COVID in June 2021, history of CAD status post CABG x2, dyslipidemia, hypertension, BPH, bladder cancer who presents to the ED with complaints of weakness and shortness of breath. Has some chest discomfort midsternal radiating to his left shoulder. He had elevated troponin which was a flat curve, EKG normal, stress test showed no significant ischemia. Stress test did show small fixed defect which is consistent with his old [facility]. cardiology recommends restart aspirin 81 mg otherwise no further testing required. He was also found to have widespread lytic bone lesions concerning for multiple myeloma versus metastatic disease considering his history of bladder cancer. Dr. Morelos was consulted we had ordered lab workup for multiple myeloma, with results still pending. As patient is clinically improving he will need to complete cancer workup outpatient. CT of his chest showed widespread lytic lesions with the largest lesion being 3.2 x 1.6 cm soft tissue mass left 3rd rib, I have ordered a outpatient CT-guided biopsy of this mass. Dr. Morelos will follow-up with likely skeletal survey and based on biopsy results further treatment. CT of non pelvis showed wall thickening of the posterior bladder which is consistent with infection versus recurrence of malignancy. Patient was found to have urinary tract infection with pansensitive Enterococcus, treating with 7 days of Levaquin for complicated infection being male urinary tract and with CT findings. Patient will restart the aspirin 81 mg after getting his biopsy done. His IVETTE resolved with IV fluids. He worked well physical therapy and will go home being independent. At time of discharge patient's vitals stable, labs stable, patient is stable for discharge home. He understands and agrees with plan. Status at Discharge Cognitive/behavioral status at discharge: At baseline Functional status at discharge: independent ambulation Overall status at discharge: patient is back to baseline Time Spent with Patient Time attestation: Total time spent providing and/or coordinating discharge services:35 Time spent: Greater than 30 minutes Specific discharge activities: CT-guided biopsy of left 3rd rib mass Exam Narrative: - GENERAL: Pleasant thin male in no acute distress sitting comfortably in bed. - EYES: EOMI. Anicteric. - HENT: Moist mucous membranes. - LUNGS: Clear to auscultation bilaterally, no wheezing, rhonchi, or rales. - CARDIOVASCULAR: Regular rate and rhythm. No murmur. No JVD. Nontender on palpation - ABDOMEN: Soft, non-tender and non-distended. No palpable masses. - EXTREMITIES: No edema. Peripheral pulses 2+. Non-tender. - NEUROLOGIC: No focal neurological deficits. CN II-XII grossly i
[2021-09-11 13:45] VITALS: BP 130/75; PULSE 92; RESP 16; TEMP 36.4; O2SAT 96
[2021-09-13 12:23] LABS: Kappa\\Lambda Light Chains 0.01 (0.26-1.65); Lambda Light Chain 2939.1 mg/L (5.7-26.3)
== END 2021-09-11 14:28 | disposition home or self-care (01) | DRG 565 ==
LOC: ANHED 12:07 → ANHIMU 15:44 → ANH2MED 09-11 13:15 → ANHIMU 09-13 10:26
PROVIDERS: Internal Medicine; Internal Medicine Cardiovascular Disease; Internal Medicine Hematology & Oncology; Nurse Practitioner Adult Health; Admitting Provider Family Medicine; Emergency Provider Emergency Medicine; PCP Internal Medicine Geriatric Medicine; Visit Provider Student in an Organized Health Care Education/Training Program
DX: M89.8X8 Other specified disorders of bone, other site (principal); N39.0 Urinary tract infection, site not specified; N17.9 Acute kidney failure, unspecified; R07.89 Other chest pain; R53.1 Weakness; I25.10 Atherosclerotic heart disease of native coronary artery without angina pectoris; R77.8 Other specified abnormalities of plasma proteins; Z20.822 Contact with and (suspected) exposure to COVID-19; B95.2 Enterococcus as the cause of diseases classified elsewhere; D64.9 Anemia, unspecified; E78.5 Hyperlipidemia, unspecified; E86.0 Dehydration; F32.A Depression, unspecified; I25.2 Old myocardial infarction; I10 Essential (primary) hypertension; J43.9 Emphysema, unspecified; M25.512 Pain in left shoulder; M54.9 Dorsalgia, unspecified; I08.0 Rheumatic disorders of both mitral and aortic valves; G47.00 Insomnia, unspecified; N40.0 Benign prostatic hyperplasia without lower urinary tract symptoms; R63.4 Abnormal weight loss; R06.09 Other forms of dyspnea; Z86.73 Personal history of transient ischemic attack (TIA), and cerebral infarction without residual deficits; Z95.5 Presence of coronary angioplasty implant and graft; Z95.1 Presence of aortocoronary bypass graft; Z86.16 Personal history of COVID-19; Z28.21 Immunization not carried out because of patient refusal; Z85.51 Personal history of malignant neoplasm of bladder; Z79.82 Long term (current) use of aspirin; Z87.891 Personal history of nicotine dependence; Z79.02 Long term (current) use of antithrombotics/antiplatelets
CPT/HCPCS: 36415; 71045; 71250; 74177; 78452; 80048; 80053; 81001; 82550; 82607; 82728; 82746; 82784; 83540; 83550; 83735; 83880; 83883; 84153; 84484; 85025; 85027; 85610; 85652; 85730; 86140; 86334; 87086; 87147; 87181; 87186; 93005; 93017; 97110; 97116; 97161; 97165; 99291; A9270; A9502; C9803; J1644; J2785; J3475; J7030; Q9967; U0003; U0005

== ENCOUNTER 2021-09-16 14:27 | Emergency (ER) | payer MEDICARE, BC, SELFPAY ==
[2021-09-16] VITALS (8 sets, daily range): BP systolic 119–151; BP diastolic 54–72; PULSE 94–100; RESP 16–29; TEMP 36.8; O2SAT 97–100
--- NOTE | ~2021-09-16 | CT_ITS ---
EXAMINATION: CT abdomen pelvis wo con EXAM DATE: 09/16/2021 17:27 INDICATION: Abd, right flank pain. TECHNIQUE: Spiral CT of the abdomen and pelvis was performed without contrast. Axial, coronal and s agittal images of the abdomen and pelvis were reviewed. The dose-length product (DLP) for this exami nation was 487.69 mGy-cm. The exposure was tailored according to patient size (auto mA exposure cont rol), and iterative reconstruction (ASIR) was used as additional dose reduction technique. Comparison is made to prior examination from 09/09/2021. FINDINGS: Small amount of ascites. The liver, spleen, adrenal glands and pancreas are unremarkable. There are cholecystectomy clips. There is no nephrolithiasis or hydronephrosis. There is prostatome kristin and there are prostate radiation seeds. Again there are multiple bladder diverticula. Prostate b ulges into the bladder base. There is no retroperitoneal or pelvic lymphadenopathy. There is mild scattered arteriosclerotic disease. Again there is fecal impaction, with rectal vault measuring 9 cm in diameter. There is interval devel opment of adjacent inflammation, consistent with stercoral colitis. Interval development of moderate wall thickening, edema of the rectosigmoid colonic junction, colitis. Difficult to exclude underlying cancer but this was not evident on the making that unlikely. There is moderate to large amount of colonic stool and gas in the ascending and transverse colon. No free intraperitoneal gas. Mild car diomegaly. There is left lower lobe airspace disease with volume loss again noted, appearance most co nsistent with round atelectasis. Scattered osteolytic disease, metastatic disease or multiple myelom a. IMPRESSION: 1. Fecal impaction with development of stercoral colitis. 2. Bladder diverticulosis. 3. Prostatomegaly. 4. Scattered osteolytic disease, metastatic lesions versus myeloma. 5. Small ascites. 6. Left lower lobe round atelectasis. Reviewed, dictated and finalized at location G.
--- NOTE | 2021-09-16 15:14 | ECG_ITS ---
Measurements Intervals [place] Rate: 91 P: 45 WA: 228 QRS: -44 QRSD: 122 T: 86 QT: 365 QTc: 449 Interpretive Statements SINUS RHYTHM WITH FIRST DEGREE AV BLOCK LEFT ANTERIOR FASCICULAR BLOCK INTRAVENTRICULAR CONDUCTION DELAY ABNORMAL ECG Electronically Signed On 09-16-2021 16:06:55 CDT by Ganesh Marshall M.D.
[2021-09-16 15:39] LABS: Basophils Absolute Auto 0.1 K/mm3 (0.0-0.1); Basophils Percent Auto 0.4 % (0.2-1.2); Eosinophils Absolute Auto 0.1 K/mm3 (0-0.3); Eosinophils Percent Auto 0.6 % (0-4.4); Hemoglobin 13.3 g/dL (14.0-18.0); Immature Granulocyte Absolute 0.11 K/mm3 (0.00-0.031); Immature Granulocyte Percent A 0.8 % (0-0.5); Lymphocytes Absolute Auto 1.01 K/mm3 (0.9-3.2); Mean Corpuscular HGB Conc 33.3 g/dl (32-36); Mean Corpuscular Hemoglobin 33.4 pg (26-34); Mean Corpuscular Volume 100.5 fl (80-100); Mean Platelet Volume 9.7 fl (7.4-10.4); Monocytes Absolute Auto 1.4 K/mm3 (0.1-0.6); Monocytes Percent Auto 9.6 % (2.6-8.5); Neutrophils Absolute Auto 11.8 K/mm3 (1.3-6.7); Neutrophils Percent Auto 81.6 % (45.5-73.1); Platelet Count Result 291 k/mm3 (150-375); Red Blood Count 3.98 M/mm3 (4.6-6.20); Red Cell Distribution Width 12.9 % (11.5-14.5); White Blood Count 14.5 K/mm3 (4.5-10.0)
[2021-09-16] MEDS: SODIUM CHLORIDE 0.9% IV 1,000 ML 150 ML IV CONT (15:46)
[2021-09-16 15:54] LABS: Potassium 4.4 mmol/L (3.4-5.0)
[2021-09-16 15:58] LABS: Alanine Aminotransferase 44 U/L (4-50); Albumin Level 3.6 g/dL (3.5-5.1); Alkaline Phosphatase 108 U/L (38-126); Anion Gap 5 mmol/L (8-16); Aspartate Amino Transferase 59 U/L (17-59); Bilirubin,Total 1.4 mg/dL (0.2-1.3); Blood Urea Nitrogen 20 mg/dL (9-20); Calcium 9.4 mg/dL (8.4-10.2); Carbon Dioxide 34 mmol/L (22-30); Chloride 97 mmol/L (98-107); Estimated CRCL calculation 45 ml/min; Estimated Glomerular Filt Rate 53; Glucose 115 mg/dL (65-110); Sodium 136 mmol/L (137-145)
[2021-09-16 16:06] LABS: Troponin I 0.951 ng/mL (0.000-0.034)
--- NOTE | 2021-09-16 18:41 | PC.NURSE ---
THIS NURSE WENT TO GIVE PT A FLEET ENEMA. PT DEPENDS WAS FULL OF BM. EDP DR. DILLARD AWARE AND DISCONTINUED FLEET.
--- NOTE | 2021-09-16 18:52 | ED.GENADULT ---
HPI - General Adult General Chief complaint: Weakness Stated complaint: weakness Time Seen by Provider: 09/16/21 14:54 Source: patient Mode of arrival: ambulatory Limitations: no limitations History of Present Illness HPI narrative: 81-year-old with a history of CAD s/p CABG, hypertension, dyslipidemia, lytic lesions in the ribs, NSTEMI record here with complaints of marked weakness and constipation for last 5 days. mentions that they were discharged from the hospital 5 days ago and ever since then he did not have a bowel movement was having left-sided pain on and off since the time of discharge. He denies any shortness of breath. No history of nausea or vomiting. States that he had a bowel movement upon arrival to the ER and his abdominal pain has much resolved. Onset (ago): day(s) (5) Location: chest and abdomen Radiation: non-radiation Severity: moderate Quality: aching Pain Consistency: intermittent Relieving factors: none Associated symptoms: denies other symptoms Related Data Home Medications Medication Instructions Recorded Confirmed finasteride 5 mg PO DAILY 05/22/19 09/09/21 tamsulosin 0.4 mg PO HS 05/22/19 09/09/21 metoprolol tartrate 25 mg PO BID 09/16/21 Allergies Allergy/AdvReac Type Severity Reaction Status Date / Time atorvastatin Allergy Unknown Muscle Pain Verified 09/16/21 14:48 azithromycin Allergy Unknown Rash Verified 09/16/21 14:48 doxycycline Allergy Unknown Rash Verified 09/16/21 14:48 pravastatin Allergy Unknown Muscle Pain Verified 09/16/21 14:48 rosuvastatin Allergy Unknown Muscle Pain Verified 09/16/21 14:48 Onakpia-XSP-CfJ Reductase Allergy Unknown Muscle Pain Verified 09/16/21 14:48 Inhibitor [Hyyvhwf-Kdl-Gik Reductase Inhibitor] tetracycline Allergy Unknown Rash Verified 09/16/21 14:48 shellfish derived Allergy Itching Verified 09/16/21 14:48 oxycodone AdvReac Unknown Hallucinati Verified 09/16/21 14:48 ng Review of Systems Review of Systems: All systems reviewed & are unremarkable except as noted in HPI and below Constitutional: Constitutional: Reports no additional constitutional complaints Eyes: Eyes: Reports no additional eye complaints ENT: Reports system reviewed and no additional complaints, except as documented Cardiovascular: Cardiovascular: Reports as per HPI Respiratory: Respiratory: Reports no additional respiratory complaints Gastrointestinal: Gastrointestinal: Reports no additional gastrointestinal complaints Musculoskeletal: Musculoskeletal: Reports no additional musculoskeletal complaints Neurologic: Reports system reviewed and no additional complaints, except as documented Psychiatric: Psychiatric: Reports no additional psychiatric complaints Endocrine: Endocrine: Reports no additional endocrine complaints [facility] Past Medical History Medical History (Updated 09/16/21 @ 18:57 by Richie Christianson MD) Adenomatous colon polyp BPH (benign prostatic hyperplasia) CAD (coronary artery disease) History of bladder cancer HLD (hyperlipidemia) HTN (hypertension) TIA (transient ischemic attack) 2015; has remained on dual anti-platelet therapy. Surgical History Surgical History (Updated 09/09/21 @ 13:04 by Duke Morelos MD) H/O colonoscopy Hx of CABG 2010 after failed stent. 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 Has 2 surviving sons, 2 daughters of [employer]) in 2020 and 2021. No alcohol or cigarettes since 1970. Smoking packs per day: 1 Smoking cigarettes per day: 20.0 Years smoked: 13 Smoking pack-years: 13.00 Smoking status
== END 2021-09-16 21:50 | disposition home or self-care (01) ==
PROVIDERS: Emergency Provider Family Medicine; PCP Internal Medicine Geriatric Medicine
DX: R53.1 Weakness (principal); K59.00 Constipation, unspecified; R79.89 Other specified abnormal findings of blood chemistry; I10 Essential (primary) hypertension; E78.5 Hyperlipidemia, unspecified; I25.10 Atherosclerotic heart disease of native coronary artery without angina pectoris; Z95.1 Presence of aortocoronary bypass graft; I25.2 Old myocardial infarction; N40.0 Benign prostatic hyperplasia without lower urinary tract symptoms; Z85.51 Personal history of malignant neoplasm of bladder; Z86.718 Personal history of other venous thrombosis and embolism; Z87.891 Personal history of nicotine dependence; I44.0 Atrioventricular block, first degree; I44.4 Left anterior fascicular block; M89.9 Disorder of bone, unspecified; N32.89 Other specified disorders of bladder
CPT/HCPCS: 36415; 74176; 80053; 84484; 85025; 93005; 96360; 99284; J7030

== ENCOUNTER 2021-09-20 10:05 | Inpatient (IN) | payer MEDICARE, BC, SELFPAY ==
[2021-09-20] VITALS (20 sets, daily range): BP systolic 118–152; BP diastolic 58–78; PULSE 89–98; RESP 14–33; TEMP 36.2–36.8; O2SAT 95–99; BMI 23.9
--- NOTE | ~2021-09-20 | CT_ITS ---
EXAMINATION: CT diagnostic chest wo con EXAM DATE: 09/23/2021 09:50 INDICATION: Loculated effusion on CXR. Multiple myeloma. TECHNIQUE: Spiral CT of the chest without contrast. Axial, coronal and sagittal images of the chest were reviewed. Coronal maximum intensity pixel images of chest reviewed. The dose-length product ( DLP) for this examination was 198.95 mGy-cm. The exposure was tailored according to patient size (au to mA exposure control), and iterative reconstruction (ASIR) was used as additional dose reduction te [place]. Comparison is made to prior examination from 09/08/2021. FINDINGS: There is multi segmental bibasilar airspace disease, appearance is consistent with atelecta sis, progression compared to prior study. Again there is widespread osteolytic disease consistent wit h multiple myeloma. One of these masses along the left 3rd rib anterolaterally at sizable extraosseou s component bulging the pleural surface, measuring 3.2 x 1.5 cm. Small to moderate right, small left pleural effusions likely with loculations. There is cardiomegaly. Trace pericardial effusion. There i s mild to moderate emphysema. Upper abdomen is unremarkable. Cholecystectomy clips. IMPRESSION: 1. Progression of now multisegmental bibasilar atelectasis. 2. Cardiomegaly. Progression of small to moderate right, small left pleural effusions. Probably locu lated on the left. 3. Widespread osteolytic disease. Reviewed, dictated and finalized at location B. IMPRESSION: 1. Progression of now multisegmental bibasilar atelectasis. 2. Cardiomegaly. Progression of small to moderate right, small left pleural ef fusions. Probably loculated on the left. 3. Widespread osteolytic disease.
--- NOTE | ~2021-09-20 | BM_ITS ---
EXAMINATION: CCL bone marrow asp w bx diag DATE: 09/29/2021 13:05 INDICATION: Multiple myeloma. TECHNIQUE: A time-out was performed to verify the patient's name, date of , and procedure to b e performed. The procedure including the risks, benefits, and alternatives was discussed with the pat ient. Risks discussed included bleeding and infection. The patient understood the risks and agreed to proceed. The skin overlying the left ilium was prepped and draped in usual sterile fashion. Anesth etic was administered with 1% lidocaine subcutaneously. 50 mcg fentanyl IV was administered. An 11 g auge needle was inserted into the ilium with fluoroscopic guidance. Bone marrow was aspirated. An 8 g auge needle was then inserted into the ilium with fluoroscopic guidance. A core bone marrow biopsy wa s obtained. There were no immediate complications. Fluoroscopy exposure time was 0.0 minutes. The tot al number of images was 25. FINDINGS: Real-time fluoroscopy demonstrates a marker overlying the left posterior superior iliac spi ne. IMPRESSION: 1. Fluoro-guided bone marrow aspiration. 2. Fluoro-guided bone marrow core biopsy. Reviewed, dictated and finalized at location A.
--- NOTE | ~2021-09-20 | XR_ITS ---
EXAMINATION: XR chest 2V DATE: 09/22/2021 16:40 INDICATION: Hypoxia. TECHNIQUE: Frontal and lateral views of the chest were obtained. COMPARISON: Chest 2 views 09/20/2021, CT abdomen and pelvis 09/20/2021 FINDINGS: There are small pleural effusions, loculated on the left. There is mild scarring at the tatiana g apices. There is a diffuse interstitial pattern, consistent with mild pulmonary edema. There are ai rspace opacities in right lower lung zone and left mid and lower lung zones. No pneumothorax. Cardiom egaly is noted. Median sternotomy wires and mediastinal surgical clips are seen, likely from prior co ronary artery bypass grafting. There are surgical clips in the abdomen. IMPRESSION: 1. Mild pulmonary edema. 2. Small pleural effusions, loculated on the left. 3. Stable mild airspace opacities in right lower lung zone and left mid and lower lung zones, consist ent with atelectasis/scarring or less likely pneumonia. 4. Cardiomegaly. Reviewed, dictated and finalized at location A. IMPRESSION: 1. Mild pulmonary edema. 2. Small pleural effusions, loculated on the left. 3. Stable mild airspace opacities in right lower lung zone and left mid and low er lung zones, consistent with atelectasis/scarring or less likely pneumonia. 4. Cardiomegaly.
--- NOTE | ~2021-09-20 | CT_ITS ---
EXAMINATION:CT diagnostic chest w con DATE: 09/26/2021 14:36 INDICATION: Pleural effusion. Pulmonary edema. TECHNIQUE: Computed tomography (CT) of the chest was performed with 75 mL Omnipaque 350 intravenous c ontrast. Automated exposure control and iterative reconstruction technique were employed. The dose-le ngth product (DLP) was 175.68 mGy-cm. COMPARISON: Chest CT 09/23/2021 FINDINGS: There is mild scarring at the lung apices. There are small pleural effusions. Left-sided pl eural thickening is noted. There is mild emphysema. There are airspace and groundglass opacities in p erihilar right middle lobe. There is mild dependent atelectasis in right lower lobe. There are airspa ce opacities in left lower lobe adjacent subpleural architectural distortion, likely rounded atelecta sis. Calcified left hilar lymph nodes are consistent with old granulomatous disease. Cardiomegaly is noted. There are coronary artery calcifications. There are calcifications of the aortic valve. Median sternotomy wires are noted. There are changes of cholecystectomy. There are multiple lytic lesions o f bone, consistent with multiple myeloma. IMPRESSION: 1. Small pleural effusions with interval improvement. Chronic left-sided pleural thickening. 2. Worsened airspace and groundglass opacities in perihilar right middle lobe, consistent with atelec tasis versus pneumonia. 3. Persistent airspace opacities in left lower lobe with volume loss and architectural distortion, co nsistent with rounded atelectasis. 4. Cardiomegaly. 5. Lytic lesions of bone, consistent with multiple myeloma. Reviewed, dictated and finalized at location E. IMPRESSION: 1. Small pleural effusions with interval improvement. Chronic left-sided pleura l thickening. 2. Worsened airspace and groundglass opacities in perihilar right middle lobe, consistent with atelectasis versus pneumonia. 3. Persistent airspace opacities in left lower lobe with volume loss and ramya ectural distortion, consistent with rounded atelectasis. 4. Cardiomegaly. 5. Lytic lesions of bone, consistent with multiple myeloma.
--- NOTE | ~2021-09-20 | XR_ITS ---
EXAMINATION: XR abdomen/kub 1V EXAM DATE: 09/24/2021 10:23 INDICATION: Colonic stool, ileus . TECHNIQUE: Frontal projection(s) of the abdomen for interpretation. Correlation is made to CT abdomen pelvis 09/20/2021. FINDINGS: There is moderate amount of bowel gas, likely mild improvement compared to CT several days ago. Several persistent mildly dilated loops of air-filled small bowel probably ileus. Small to moder ate amount of rectal vault stool. No bowel obstruction . Scattered surgical changes. There are bony d egenerative changes. Mild lumbar levoscoliosis. IMPRESSION: Nonobstructive bowel gas pattern as above. Reviewed, dictated and finalized at location B.
--- NOTE | ~2021-09-20 | CT_ITS ---
EXAMINATION: CT abdomen pelvis w con EXAM DATE: 09/20/2021 12:52 INDICATION: Constipation 4 days. Nausea vomiting, decreased appetite. Multiple myeloma. eval for kevin l obstruction TECHNIQUE: Spiral CT of the abdomen and pelvis was performed following intravenous injection of 100 m L Omnipaque 350. Axial, coronal and sagittal images of the abdomen and pelvis were reviewed. The do se-length product (DLP) for this examination was 557.03 mGy-cm. The exposure was tailored according to patient size (auto mA exposure control), and iterative reconstruction (ASIR) was used as additiona l dose reduction technique. Comparison is made to prior examination from 09/16/2021. FINDINGS: Small amount of perihepatic ascites, slight increase compared to 4 days ago. The liver, sp davida, adrenal glands and pancreas are unremarkable. There are cholecystectomy clips. There is no ne phrolithiasis or hydronephrosis. There is prostatomegaly and there are prostate radiation seeds. Agai n there are multiple bladder diverticula. Prostate bulges into the bladder base. Corpora implant. The re is no retroperitoneal or pelvic lymphadenopathy. There is mild scattered arteriosclerotic diseas e. Again there is improvement in diameter of rectal vault from 9 cm to 7 cm. Persistent adjacent inflamm ation, consistent with stercoral colitis. Improvement in quantity of stool in other portions of the c olon. Development of mildly jejunum, ileus. No free intraperitoneal gas. Mild cardiomegaly. There is left lower lobe airspace disease with volume loss again noted, appearance most consistent with round atelectasis. Scattered osteolytic disease, metastatic disease or multiple myeloma. IMPRESSION: 1. Mild improvement in quantity of colonic stool, persistent perirectal adjacent inflammation. Sterc oral colitis. 2. Development of mild jejunal dilation consistent with ileus. No transition point/obstruction. 3. Scattered osteolytic disease, metastatic lesions versus myeloma. 4. Bladder diverticulosis. 5. Prostatomegaly. 6. Small ascites. 7. Left lower lobe round atelectasis. Reviewed, dictated and finalized at location B. IMPRESSION: 1. Mild improvement in quantity of colonic stool, persistent perirectal adjace nt inflammation. Stercoral colitis. 2. Development of mild jejunal dilation consistent with ileus. No transition p oint/obstruction. 3. Scattered osteolytic disease, metastatic lesions versus myeloma. 4. Bladder diverticulosis. 5. Prostatomegaly. 6. Small ascites. 7. Left lower lobe round atelectasis.
--- NOTE | ~2021-09-20 | XR_ITS ---
EXAMINATION: XR chest 2V EXAM DATE: 09/20/2021 11:18 INDICATION: Weakness, dyspnea, CABG 2016. Osteolytic disease TECHNIQUE: Frontal and lateral projections of the chest obtained and reviewed. Comparison is made to prior examination from 09/08/2021. FINDINGS: Sternotomy wires are present without findings to suggest sternal dehiscence. Cardiomediast inal silhouette is normal. Small left pleural effusion unchanged. Subsegmental retrocardiac airspace disease, consistent with round atelectasis on recent CT. No evidence of superimposed acute airspace d isease. No pneumothorax. Cardiomediastinal silhouette is normal. Mild thoracic scoliosis. There are c holecystectomy clips. IMPRESSION: Left lower lobe round atelectasis and chronic pleural blunting. No acute findings. Reviewed, dictated and finalized at location B.
--- NOTE | 2021-09-20 10:48 | PC.NURSE ---
C/O CONSTIPATION. IN ED LAST WEEK WITH SAME COMPLAINT. REPORTS WAS GIVEN RX TO HELP GO, BUT HAS NO BM SINCE LAST ED VISIT. TAKING MIRALAX DAILY AND ON SOFT LIQUID TO HELP HAVE BM. REPORTS HE HAS BECOME VERY WEAK. REPORTS INTAKE HAS BEEN VERY POOR. PT WAS DIAGNOSED MONDAY BLOOD CANCER.
--- NOTE | 2021-09-20 11:00 | ECG_ITS ---
Measurements Intervals [place] Rate: 89 P: 36 WI: 188 QRS: -49 QRSD: 126 T: 96 QT: 362 QTc: 441 Interpretive Statements SINUS RHYTHM POSSIBLE RIGHT VENTRICULAR CONDUCTION DELAY [RSR (QR) IN V1/V2] LEFT ANTERIOR FASCICULAR BLOCK [QRS AXIS <= -45, QR IN I, RS IN II] ABNORMAL ECG COMPARED TO ECG 09/16/2021 15:27:54 NO SIGNIFICANT CHANGES Electronically Signed On 09-20-2021 12:32:31 CDT by Cooper Munoz M.D.
[2021-09-20 12:00] LABS: Basophils Absolute Auto 0.1 K/mm3 (0.0-0.1); Basophils Percent Auto 0.6 % (0.2-1.2); Eosinophils Absolute Auto 0.1 K/mm3 (0-0.3); Eosinophils Percent Auto 1.1 % (0-4.4); Hematocrit 35.7 % (42.0-52.0); Hemoglobin 11.9 g/dL (14.0-18.0); Immature Granulocyte Absolute 0.06 K/mm3 (0.00-0.031); Immature Granulocyte Percent A 0.7 % (0-0.5); Lymphocytes Absolute Auto 1.29 K/mm3 (0.9-3.2); Lymphocytes Percent Auto 14.6 % (18.3-44.2); Mean Corpuscular HGB Conc 33.3 g/dl (32-36); Mean Corpuscular Hemoglobin 33.4 pg (26-34); Mean Corpuscular Volume 100.3 fl (80-100); Mean Platelet Volume 9.5 fl (7.4-10.4); Monocytes Absolute Auto 1.1 K/mm3 (0.1-0.6); Monocytes Percent Auto 12.7 % (2.6-8.5); Neutrophils Absolute Auto 6.2 K/mm3 (1.3-6.7); Neutrophils Percent Auto 70.3 % (45.5-73.1); Platelet Count Result 244 k/mm3 (150-375); Red Blood Count 3.56 M/mm3 (4.6-6.20); Red Cell Distribution Width 12.8 % (11.5-14.5); White Blood Count 8.9 K/mm3 (4.5-10.0)
[2021-09-20 12:11] LABS: Alanine Aminotransferase 34 U/L (4-50); Albumin Level 3.2 g/dL (3.5-5.1); Alkaline Phosphatase 85 U/L (38-126); Anion Gap 4 mmol/L (8-16); Aspartate Amino Transferase 53 U/L (17-59); Bilirubin,Total 1.2 mg/dL (0.2-1.3); Blood Urea Nitrogen 17 mg/dL (9-20); Calcium 9.2 mg/dL (8.4-10.2); Carbon Dioxide 30 mmol/L (22-30); Chloride 97 mmol/L (98-107); Estimated Glomerular Filt Rate > 60; Glucose 97 mg/dL (65-110); Potassium 4.2 mmol/L (3.4-5.0); Sodium 131 mmol/L (137-145)
--- NOTE | 2021-09-20 13:15 | ED.GENADULT ---
HPI - General Adult General Chief complaint: Weakness Stated complaint: weakness, fatigue Time Seen by Provider: 09/20/21 11:35 Source: patient and family History of Present Illness HPI narrative: 81-year-old male presented to the emergency department for evaluation of increased generalized weakness and constipation. Patient did have Covid in June and patient states he has had multiple health issues since that time. Patient did have a recent hospital admission where multiple myeloma was a working diagnosis. Outpatient biopsy is still pending. Patient returned to the emergency department on 09/16 for evaluation of constipation. During that ER visit patient reports he did have a significant bowel movement and felt improved at the time and patient was discharged to home from the emergency department. Since being home patient states he has had further worsening generalized weakness, decreased p.o. intake and has not had a significant bowel movement. Patient did have an episode of emesis yesterday which she described as clear. patient has been attempting to follow a clear liquid diet but does not sound like he is having an adequate caloric or fluid intake. Patient has attempted Dulcolax and MiraLAX with significant results. Suspect that the patient may not be using for therapeutic doses. feels that the patient is getting too weak and she is concerned that he has a fall risk at home. Related Data Home Medications Medication Instructions Recorded Confirmed finasteride 5 mg PO DAILY 05/22/19 09/09/21 tamsulosin 0.4 mg PO HS 05/22/19 09/09/21 metoprolol tartrate 25 mg PO BID 09/16/21 Allergies Allergy/AdvReac Type Severity Reaction Status Date / Time atorvastatin Allergy Unknown Muscle Pain Verified 09/16/21 14:48 azithromycin Allergy Unknown Rash Verified 09/16/21 14:48 doxycycline Allergy Unknown Rash Verified 09/16/21 14:48 pravastatin Allergy Unknown Muscle Pain Verified 09/16/21 14:48 rosuvastatin Allergy Unknown Muscle Pain Verified 09/16/21 14:48 Hoggedd-FQZ-ItM Reductase Allergy Unknown Muscle Pain Verified 09/16/21 14:48 Inhibitor [Tevbchb-Pgx-Tzj Reductase Inhibitor] tetracycline Allergy Unknown Rash Verified 09/16/21 14:48 shellfish derived Allergy Itching Verified 09/16/21 14:48 oxycodone AdvReac Unknown Hallucinati Verified 09/16/21 14:48 ng Review of Systems Review of Systems: CONSTITUTIONAL: Denies fevers or chills but does report increased generalized weakness. EYES: Denies visual changes, redness, or discharge. ENT: Denies rhinorrhea, congestion, sore throat, or otalgia. CARDIOVASCULAR: Denies chest pain, palpitations, or edema. RESPIRATORY: Denies cough or dyspnea. GASTROINTESTINAL: Has had some episodes of nausea and vomiting GENITOURINARY: Denies dysuria or hematuria. SKIN: Denies rash or itching. MUSCULOSKELETAL: Denies back pain, joint pain, or myalgia. NEUROLOGIC: Denies headache, numbness, or weakness. [facility] Past Medical History Medical History (Updated 09/20/21 @ 18:21 by Robert García MD) Adenomatous colon polyp BPH (benign prostatic hyperplasia) CAD (coronary artery disease) History of bladder cancer HLD (hyperlipidemia) HTN (hypertension) TIA (transient ischemic attack) 2015; has remained on dual anti-platelet therapy. Surgical History Surgical History (Updated 09/09/21 @ 13:04 by Duke Morelos MD) H/O colonoscopy Hx of CABG 2010 after failed stent. 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 Has 2 surviving sons, 2 daughters of COVID in 2020 and 2021. No alcohol or cig
[2021-09-20] MEDS: SODIUM CHLORIDE 0.9% IV 1,000 ML 125 ML IV CONT (16:33)
--- NOTE | 2021-09-20 20:10 | ADMGEN ---
This patient, Ron Hickey, was admitted to Medical Room 252-01. Patient/family oriented to hospital policies and general routines including ID bracelet, bed and alarms, visiting hours, pain management, procedures, bathroom and other care routines, personal items, smoking policy, room service/diet, and visiting hours. Information on how to activate the Rapid Response Team has been discussed. Patient/Family are encouraged to report perceived risks to care and to ask questions if they do not understand what they are told or what they should do.
--- NOTE | 2021-09-20 20:57 | PM.IMHP ---
H&P: HPI History of Present Illness Date/Time: 09/20/21 20:57 Chief Complaint: Constipation Narrative: 81-year-old male with past medical history of coronary artery disease, BPH, hypertension, and recent diagnosis of multiple myeloma who presented to the ER with no bowel movement 09/16/2021. Patient was admitted the hospital 09/08/2021 through 09/11/2021 and was found to have new diagnosis of multiple myeloma, acute kidney injury and Enterococcus UTI. He was discharged home on Levaquin. His CT scan at the time of admission demonstrated significant colonic stool with perirectal adjacent inflammation consistent was stercoral colitis. The patient reported that he returned to the ER on the when he had not had a bowel movement in 5 days. He was given an enema at that time and had good results. He had tried some ttuh-qxo-pxgumin medications to help with his constipation with little relief. He returned home and again has not had a bowel movement since the . He reported developing burning periumbilical abdominal pain that started on the . The burning abdominal pain was accompanied by emesis of clear gastric acid. He has not had a recurrence of his vomiting. He has no reproducible abdominal pain on palpation. Patient received an in the ER and had a small amount of results. He denies having any nausea at this time and is tolerated a clear liquid diet. He is requesting some solid food. He reports that he has had decreased flatulence over the last 4 days. Since returning home the patient has had decreased appetite and increased weakness. He reports chronic/frequent burning discomfort across his upper chest has been ongoing for years any time he gets rushed or anxious. He attributes this to anxiety. However he was evaluated by Cardiology during his last hospitalization and symptoms suggest stable angina. He has had stress tests in the past and follows with cardiology. He denies any cough or congestion. He has had any lower extremity swelling. He denies any significant urinary symptoms. He has been taking MiraLax daily for the last 3 or 4 days since his ER visit but has not had a bowel movement. He has not used any further Dulcolax since the . He has had a persistent poor appetite. He reports that since he had COVID in June he has been having intermittent weakness. He has been using a cane and at times is using the rolling walker that he has left from another family member. Patient was supposed to have outpatient biopsy of the lesion on his ribcage. In the computer it appears that this biopsy was scheduled on the . Is not clear why the patient did not have the imaging performed. Review of Systems Review of Systems: 12 systems were reviewed with pertinent positives and negatives per HPI. Except as documented in the HPI, all other systems were reviewed and are negative. [facility] Past Medical History Medical History (Updated 09/21/21 @ 03:05 by Radhika Villela DO) Adenomatous colon polyp Aortic stenosis Echocardiogram 07/2021: EF 60 65%, moderate LVH, diastolic dysfunction, moderate to severe mitral valve regurgitation, mild to moderate aortic stenosis, mean gradient 17, aortic valve area 1.5 cm, moderate AI, mild TR, RVSP 46 BPH (benign prostatic hyperplasia) CAD (coronary artery disease) Depression History of bladder cancer HLD (hyperlipidemia) HTN (hypertension) Multiple myeloma TIA (transient ischemic attack) (~2015) Remains on dual anti-platelet therapy. Surgical History Surgical History (Updated 09/20/21 @ 21:04 by Radhika Villela DO) H/O colonoscopy with polypectomy (06/2020) Tubular adenoma History of penile implant History of prostate surgery (05/2019) Urolift for BPH performed by Dr. Valencia Hx of CABG (~2010) Two vessel after stent failure S/P primary angioplasty with coronary stent Family History Family History Father Family history of erick
[2021-09-21] VITALS (8 sets, daily range): BP systolic 106–118; BP diastolic 55–65; PULSE 76–96; RESP 16–18; TEMP 36.2–36.9; O2SAT 92–96
[2021-09-21] MEDS: SODIUM CHLORIDE 0.9% IV 1,000 ML 125 ML IV CONT ×3 (00:47→17:17)
--- NOTE | 2021-09-21 07:53 | PM.IMPN ---
Progress Note: A&P Assessment and Plan (1) Ileus: Code(s): K56.7 - Ileus, unspecified Status: Acute Assessment and Plan: -Patient has constipation resulting in ileus. -Patient had a small bowel movement after soapsuds enema given in the ER. -Will give the patient a Dulcolax suppository this morning. -He reports resolution of his abdominal discomfort is and is requesting to eat. -Will start the patient on b.i.d. MiraLax -Goal will be for 2 soft stools a day. (2) Constipation: Qualifiers: Constipation type: unspecified constipation type Qualified Code(s): K59.00 - Constipation, unspecified Code(s): K59.00 - Constipation, unspecified Status: Acute Assessment and Plan: -as above (3) Multiple myeloma: Qualifiers: Multiple myeloma remission status: not in remission Qualified Code(s): C90.00 - Multiple myeloma not having achieved remission Code(s): C90.00 - Multiple myeloma not having achieved remission Status: Acute Assessment and Plan: -Patient has generalized weakness likely due to his new diagnosis of multiple myeloma. -Will request PT and OT evaluation. - may benefit from home physical therapy. -Patient already has follow-up arranged with Oncology as outpatient. Subjective Date/time seen: 09/21/21 07:53 Interval history: 81-year-old male with past medical history of coronary artery disease, BPH, hypertension, and recent diagnosis of multiple myeloma, admitted for constipation resulting in ileus. Pt states still having some indigestion. He is passing gas and burping, but has still not had a BM. No nausea/vomting. Abdomen is uncomfortable but not necessarily painful. No cp/sob. Review of Systems Review of Systems: All systems reviewed & are unremarkable except as noted in HPI and below Exam Narrative: WEIGHT 80.1 kg BMI 23.9 General: Well-developed, well-nourished, no acute distress HEENT: Good dentition, mucous membranes moist, no oral pharyngeal erythema, no scleral icterus Respiratory: Clear to auscultation bilaterally, no increased work of breathing Cardiovascular: Regular rate, regular rhythm, 3/6 systolic murmur radiating to the carotid, murmur also noted at the apex Gastrointestinal: Soft, nontender, nondistended, positive bowel sounds Skin: Mild pallor, non jaundice Musculoskeletal: No clubbing, cyanosis or edema, old surgical scar to the left medial knee from prior meniscal repair Neurological: Alert and oriented x4, speech is clear, no facial asymmetry, soft-spoken, no localizing neurologic deficits noted during the course of casual conversation Psychiatric: Appropriate mood and affect, pleasant and cooperative : Deferred Hematologic/lymphatic: No petechiae, no bruising, no anterior cervical lymphadenopathy Objective Data Vital Signs Vital Signs: Vital Signs - 24 hr 09/20/21 10:09 09/20/21 10:56 09/20/21 10:57 Temperature 98.2 F Pulse Rate 91 95 Respiratory Rate 14 33 H 27 H Blood Pressure 139/78 152/74 H Pulse Oximetry 98 99 09/20/21 11:00 09/20/21 11:01 09/20/21 11:22 Temperature Pulse Rate 93 92 97 Respiratory Rate 18 23 H 28 H Blood Pressure 143/74 H Pulse Oximetry 97 97 95 09/20/21 11:23 09/20/21 11:30 09/20/21 11:31 Temperature Pulse Rate 94 90 91 Respiratory Rate 22 H 23 H 20 Blood Pressure 149/71 H 135/69 Pulse Oximetry 98 97 97 09/20/21 11:45 09/20/21 11:46 09/20/21 11:56 Temperature Pulse Rate 89 89 91 Respiratory Rate 26 H 15 Blood Pressure 122/67 Pulse Oximetry 96 95 09/20/21 12:58 09/20/21 13:41 09/20/21 15:25 Temperature Pulse Rate 95 98 97 Respiratory Rate 28 H 14 18 Blood Pressure 123/67 125/70 142/76 H Pulse Oximetry 96 99 99 09/20/21 16:28 09/20/21 17:36 09/20/21 18:44 Temperature Pulse Rate 91 94 97 Respiratory Rate 21 H 15 23 H Blood Pressure 143/68 H 129/68 122/65 Pulse Oximetry 9
[2021-09-21] MEDS: METOPROLOL TARTRATE 12.5 MG TABLET PO (08:29)
[2021-09-21] MEDS: FINASTERIDE 5 MG TABLET PO (08:29)
[2021-09-21] MEDS: polyethylene glycoL 3350 17 GM POWD.PACK PO ×2 (08:30→17:17)
[2021-09-21] MEDS: ENOXAPARIN 40 MG/0.4 ML SYRINGE SUB-Q (08:30)
[2021-09-21] MEDS: BISACODYL 10 MG SUPPOSITORY RECTAL (08:30)
[2021-09-21] MEDS: TAMSULOSIN HCL 0.4 MG CAPSULE PO (20:19)
[2021-09-22] VITALS (7 sets, daily range): BP systolic 108–122; BP diastolic 58–65; PULSE 78–93; RESP 16–18; TEMP 36.6–36.8; O2SAT 92–98
[2021-09-22] MEDS: SODIUM CHLORIDE 0.9% IV 1,000 ML 125 ML IV CONT (01:17)
[2021-09-22] MEDS: ONDANSETRON INJ 4 MG/2 ML VIAL IV PUSH (01:18)
[2021-09-22 06:36] LABS: Basophils Absolute Auto 0.1 K/mm3 (0.0-0.1); Basophils Percent Auto 0.5 % (0.2-1.2); Eosinophils Absolute Auto 0.1 K/mm3 (0-0.3); Hematocrit 32.4 % (42.0-52.0); Hemoglobin 10.7 g/dL (14.0-18.0); Immature Granulocyte Absolute 0.06 K/mm3 (0.00-0.031); Immature Granulocyte Percent A 0.6 % (0-0.5); Lymphocytes Absolute Auto 1.47 K/mm3 (0.9-3.2); Lymphocytes Percent Auto 15.3 % (18.3-44.2); Mean Corpuscular Hemoglobin 33.6 pg (26-34); Mean Corpuscular Volume 101.9 fl (80-100); Mean Platelet Volume 9.8 fl (7.4-10.4); Monocytes Absolute Auto 1.1 K/mm3 (0.1-0.6); Monocytes Percent Auto 11.3 % (2.6-8.5); Neutrophils Absolute Auto 6.8 K/mm3 (1.3-6.7); Neutrophils Percent Auto 71.3 % (45.5-73.1); Platelet Count Result 254 k/mm3 (150-375); Red Blood Count 3.18 M/mm3 (4.6-6.20); Red Cell Distribution Width 13.1 % (11.5-14.5); White Blood Count 9.6 K/mm3 (4.5-10.0)
[2021-09-22 06:47] LABS: Anion Gap 4 mmol/L (8-16); Blood Urea Nitrogen 17 mg/dL (9-20); Calcium 8.7 mg/dL (8.4-10.2); Carbon Dioxide 27 mmol/L (22-30); Chloride 102 mmol/L (98-107); Estimated CRCL calculation 58 ml/min; Estimated Glomerular Filt Rate > 60; Glucose 90 mg/dL (65-110); Potassium 4.4 mmol/L (3.4-5.0); Sodium 133 mmol/L (137-145)
[2021-09-22] MEDS: ENOXAPARIN 40 MG/0.4 ML SYRINGE SUB-Q (09:01)
[2021-09-22] MEDS: METOPROLOL TARTRATE 12.5 MG TABLET PO (09:02)
[2021-09-22] MEDS: polyethylene glycoL 3350 17 GM POWD.PACK PO ×2 (09:02→17:32)
[2021-09-22] MEDS: FINASTERIDE 5 MG TABLET PO (09:02)
[2021-09-22] MEDS: DOCUSATE SODIUM 100 MG CAPSULE PO ×2 (09:02→20:54)
[2021-09-22] MEDS: SODIUM CHLORIDE 0.9% IV 1,000 ML 80 ML IV CONT (09:06)
--- NOTE | 2021-09-22 09:45 | PCPTNOTE ---
Addendum entered by Arianna Joyce, [employer] 09/22/21 09:50: RN notified. Original Note: The patient treatment was not able to be completed on this date due to patient being uncomfortable due to constipation and patient stated that he felt weak. Therapist discussed with patient that she was hoping to have him walk around to see if that would help and to help keep his muscles stronger. Patient stated that he was too uncomfortable to do that this morning. Will plan to continue treatment per plan of care.
[2021-09-22] MEDS: BISACODYL 10 MG SUPPOSITORY RECTAL (11:30)
--- NOTE | 2021-09-22 15:55 | PM.IMPN ---
Progress Note: A&P Assessment and Plan (1) Ileus: Code(s): K56.7 - Ileus, unspecified Status: Acute Assessment and Plan: Patient with persistent constipation resulting in ileus Small bowel movement following soapsuds enema in the ER Continue with MiraLax b.i.d. Start Colace b.i.d. Repeat Dulcolax suppository If still no bowel movement, will proceed with repeat enema tomorrow Goal is to soft stools per diet He is tolerating a regular diet with dietary supplements. Denies pain or bloating Will discontinue IV fluids as he is tolerating p.o. Encourage ambulation, though the patient feels too weak today. (2) Constipation: Qualifiers: Constipation type: unspecified constipation type Qualified Code(s): K59.00 - Constipation, unspecified Code(s): K59.00 - Constipation, unspecified Status: Acute Assessment and Plan: Plan as above (3) Multiple myeloma: Qualifiers: Multiple myeloma remission status: not in remission Qualified Code(s): C90.00 - Multiple myeloma not having achieved remission Code(s): C90.00 - Multiple myeloma not having achieved remission Status: Acute Assessment and Plan: Suspected. Patient noted to have bone mass and working diagnosis is multiple myeloma He has been seen by Oncology and is awaiting a bone biopsy He has generalized weakness and weight loss likely related to this new diagnosis Appreciate PT and OT evaluation May benefit from home health on discharge (4) Hypoxia: Code(s): R09.02 - Hypoxemia Status: Acute Assessment and Plan: Patient noted to be hypoxic today at 79-80% Improved to 92% on started on 2 L supplemental O2 Etiology for this is unclear CXR on 09/20 showed atelectasis. Encourage incentive spirometry May be due to volume overload, though no crackles appreciated on exam. IV fluids have been discontinued. Repeat CXR to rule out aspiration pneumonia as patient does endorse some dysphagia. Will obtain bedside swallow study. Appreciate ST eval Continue with supplemental O2 as needed with goal sats 92% or above. Wean oxygen to goal (5) HTN (hypertension): Code(s): I10 - Essential (primary) hypertension Status: Inactive Assessment and Plan: Blood pressure reviewed and has been stable, occasionally on the lower end of normal Continue metoprolol tartrate Monitor blood pressure trends Subjective Date/time seen: 09/22/21 15:55 Interval history: Date of service: 09/22/2021 Ron Hickey is 81-year-old male with a history of BPH, CAD, hypertension, hyperlipidemia, aortic stenosis who is seen in follow-up for ileus. He is feeling poorly today. He states after breakfast today he began feeling short of breath and extremely weak. He was not able to get out of bed today and he was not able to participate in therapy. He was found to be hypoxic and he states that he began to feel a bit better after he was started on oxygen. He endorses overall decreased appetite and his states that he has lost about 10 lb over the last month. He states that he does occasionally have trouble swallowing and feels the muscles in his jaw or weekend and he cannot swallow properly. He also complains of indigestion and discomfort related to this. Yesterday he passed a small chunk of stool. Today he is passing some flatus. He feels like he might need to have a bowel movement shortly. He denies abdominal pain, cramping, or bloating. He denies cough or sputum production. Denies fever, chills, dizziness, lightheadedness. No nausea or vomiting. No chest pain or palpitations. Review of Systems Review of Systems: All systems reviewed & are unremarkable except as noted in HPI and below Exam Narrative: General: Thin, chronically ill-appearing 81 year-old male, sitting up in bed, comfortable, NARD Neuro: awake, alert and oriented x4, speech clear, no focal neuro
[2021-09-22] MEDS: TAMSULOSIN HCL 0.4 MG CAPSULE PO (20:54)
[2021-09-22] MEDS: traZODone HCL 25 MG TABLET PO (20:54)
[2021-09-23] VITALS (7 sets, daily range): BP systolic 107–127; BP diastolic 58–74; PULSE 61–99; RESP 14–20; TEMP 36.4–37; O2SAT 95–98
[2021-09-23 05:59] LABS: Hematocrit 31.5 % (42.0-52.0); Hemoglobin 10.5 g/dL (14.0-18.0); Mean Corpuscular HGB Conc 33.3 g/dl (32-36); Mean Corpuscular Hemoglobin 33.7 pg (26-34); Mean Platelet Volume 9.7 fl (7.4-10.4); Platelet Count Result 228 k/mm3 (150-375); Red Blood Count 3.12 M/mm3 (4.6-6.20); White Blood Count 8.7 K/mm3 (4.5-10.0)
[2021-09-23 06:06] LABS: Anion Gap 3 mmol/L (8-16); Blood Urea Nitrogen 17 mg/dL (9-20); Calcium 8.7 mg/dL (8.4-10.2); Carbon Dioxide 28 mmol/L (22-30); Chloride 103 mmol/L (98-107); Estimated CRCL calculation 53 ml/min; Estimated Glomerular Filt Rate > 60; Glucose 107 mg/dL (65-110); Potassium 3.8 mmol/L (3.4-5.0); Sodium 134 mmol/L (137-145)
[2021-09-23] MEDS: DOCUSATE SODIUM 100 MG CAPSULE PO ×2 (08:26→21:26)
[2021-09-23] MEDS: FINASTERIDE 5 MG TABLET PO (08:26)
[2021-09-23] MEDS: METOPROLOL TARTRATE 12.5 MG TABLET PO (08:27)
[2021-09-23] MEDS: ENOXAPARIN 40 MG/0.4 ML SYRINGE SUB-Q (08:28)
[2021-09-23] MEDS: polyethylene glycoL 3350 17 GM POWD.PACK PO ×2 (08:29→16:47)
--- NOTE | 2021-09-23 09:31 | PCSTNOTE ---
Attempted bedside swallow evaluation. Pt heading to CT with transport at this time.
[2021-09-23] MEDS: FAMOTIDINE 20 MG TABLET PO ×2 (13:20→21:26)
--- NOTE | 2021-09-23 14:27 | PC.NURSE ---
On 09/23/21, the student, [Burt Robins], provided care and completed [facility] documentation on this patient. I have reviewed the student's documentation and agree with the findings.
--- NOTE | 2021-09-23 15:29 | P.PNIM_ITS ---
Progress Note: A&P Assessment and Plan (1) Ileus: Code(s): K56.7 - Ileus, unspecified Status: Acute Assessment and Plan: Patient with persistent constipation resulting in ileus * Small bowel movement following soapsuds enema in the ER and small amount of stool yesterday following dulcolax suppository but still no significant bowel movement * Continue with MiraLax b.i.d. and Colace BID * Continue Dulcolax suppository qAM * Fleets enema administered this afternoon. Monitor for response * Goal is two soft stools per day * He is tolerating a regular diet with dietary supplements. Denies pain or bloating * Encourage increased ambulation though patient has been feeling weak and has decreased activity. Orders to be out of bed with meals and walk in hallways today. (2) Constipation: Qualifiers: Constipation type: unspecified constipation type Qualified Code(s): K59.00 - Constipation, unspecified Code(s): K59.00 - Constipation, unspecified Status: Acute Assessment and Plan: Plan as above (3) Multiple myeloma: Qualifiers: Multiple myeloma remission status: not in remission Qualified Code(s): C90.00 - Multiple myeloma not having achieved remission Code(s): C90.00 - Multiple myeloma not having achieved remission Status: Acute Assessment and Plan: Suspected. Patient noted to have bone mass and working diagnosis is multiple myeloma * He has been seen by Oncology and is awaiting a bone biopsy * He has generalized weakness and weight loss likely related to this new diagnosis * Appreciate PT and OT evaluation * May benefit from home health on discharge (4) Hypoxia: Code(s): R09.02 - Hypoxemia Status: Acute Assessment and Plan: Patient noted to be hypoxic down to 79-80% per student RN report. Unfortunately no document episodes of hypoxia * O2 sats normalized with 2 L supplemental O2 * Patient was weaned to room air this morning but now is back on 2 L. * He is maintaining O2 sats 95% and above, therefore O2 should be weaned. (5) Pleural effusion: Code(s): J90 - Pleural effusion, not elsewhere classified Status: Acute Assessment and Plan: CXR on 09/22 and CTA on 09/23 demonstrated bilateral pleural effusion, possibly loculated on left side * Discussed case and reviewed images with cardiothoracic physiotherapist, Dr. Gamboa * Favor pleural effusion to be secondary to pulmonary edema/volume overload as no signs of effusion on prior CXR and CT a/p just 3 days prior * Malignant pleural effusion felt to be unlikely as this would not have developed over just 3 days * Likely loculated effusion on left side due to pleural scarring from left round atelectasis which is a chronic finding as far back as 2018 * Reviewed imaging does know a left lower lobe mass which has been present since 2018 and may warrant further evaluation but at this time bone biopsy felt to be the most pertinent diagnostic approach. He can follow-up with pulmonology as an outpatient for further monitoring * Will continue with diuresis. See plan below. Continue supportive care including incentive spirometry * At this time, no indication for thoracentesis as the patient is relatively asymptomatic and as noted, previously planned bone biopsy felt to be more pertinent rather than evaluation of pleural fluid (6) Pulmonary edema: Code(s): J81.1 - Chronic pulmonary edema Status: Acute Assessment and Plan: Patient with onset of dyspnea following IV fluid rehydration * IV fluids disc
--- NOTE | 2021-09-23 15:29 | PM.IMPN ---
Progress Note: A&P Assessment and Plan (1) Ileus: Code(s): K56.7 - Ileus, unspecified Status: Acute Assessment and Plan: Patient with persistent constipation resulting in ileus Small bowel movement following soapsuds enema in the ER and small amount of stool yesterday following dulcolax suppository but still no significant bowel movement Continue with MiraLax b.i.d. and Colace BID Continue Dulcolax suppository qAM Fleets enema administered this afternoon. Monitor for response Goal is two soft stools per day He is tolerating a regular diet with dietary supplements. Denies pain or bloating Encourage increased ambulation though patient has been feeling weak and has decreased activity. Orders to be out of bed with meals and walk in hallways today. (2) Constipation: Qualifiers: Constipation type: unspecified constipation type Qualified Code(s): K59.00 - Constipation, unspecified Code(s): K59.00 - Constipation, unspecified Status: Acute Assessment and Plan: Plan as above (3) Multiple myeloma: Qualifiers: Multiple myeloma remission status: not in remission Qualified Code(s): C90.00 - Multiple myeloma not having achieved remission Code(s): C90.00 - Multiple myeloma not having achieved remission Status: Acute Assessment and Plan: Suspected. Patient noted to have bone mass and working diagnosis is multiple myeloma He has been seen by Oncology and is awaiting a bone biopsy He has generalized weakness and weight loss likely related to this new diagnosis Appreciate PT and OT evaluation May benefit from home health on discharge (4) Hypoxia: Code(s): R09.02 - Hypoxemia Status: Acute Assessment and Plan: Patient noted to be hypoxic down to 79-80% per student RN report. Unfortunately no document episodes of hypoxia O2 sats normalized with 2 L supplemental O2 Patient was weaned to room air this morning but now is back on 2 L. He is maintaining O2 sats 95% and above, therefore O2 should be weaned. (5) Pleural effusion: Code(s): J90 - Pleural effusion, not elsewhere classified Status: Acute Assessment and Plan: CXR on 09/22 and CTA on 09/23 demonstrated bilateral pleural effusion, possibly loculated on left side Discussed case and reviewed images with make up worker, Dr. Gamboa Favor pleural effusion to be secondary to pulmonary edema/volume overload as no signs of effusion on prior CXR and CT a/p just 3 days prior Malignant pleural effusion felt to be unlikely as this would not have developed over just 3 days Likely loculated effusion on left side due to pleural scarring from left round atelectasis which is a chronic finding as far back as 2018 Reviewed imaging does know a left lower lobe mass which has been present since 2018 and may warrant further evaluation but at this time bone biopsy felt to be the most pertinent diagnostic approach. He can follow-up with pulmonology as an outpatient for further monitoring Will continue with diuresis. See plan below. Continue supportive care including incentive spirometry At this time, no indication for thoracentesis as the patient is relatively asymptomatic and as noted, previously planned bone biopsy felt to be more pertinent rather than evaluation of pleural fluid (6) Pulmonary edema: Code(s): J81.1 - Chronic pulmonary edema Status: Acute Assessment and Plan: Patient with onset of dyspnea following IV fluid rehydration IV fluids discontinued Will begin Lasix 40 mg IV daily Monitor intake and output closely Will obtain echocardiogram (7) Dysphagia: Code(s): R13.10 - Dysphagia, unspecified Status: Acute Assessment and Plan: Patient complained of occasional dysphagia with all consistencies, endorsing fatigue and muscle weakness No evidence for aspiration. CXR without findings consistent with aspiration pneumon
--- NOTE | 2021-09-23 16:16 | PCSTNOTE ---
Please refer to the Bedside Swallow Evaluation in the EMR. Please note, silent aspiration cannot be ruled out at bedside.
[2021-09-23] MEDS: FUROSEMIDE INJ 40 MG/4 ML VIAL IV PUSH (16:47)
[2021-09-23] MEDS: ONDANSETRON INJ 4 MG/2 ML VIAL IV PUSH (20:17)
[2021-09-23] MEDS: TAMSULOSIN HCL 0.4 MG CAPSULE PO (21:26)
[2021-09-23] MEDS: MELATONIN 5 MG TABLET PO (21:26)
[2021-09-24 04:16] VITALS: BP 105/56; PULSE 79; RESP 18; TEMP 36.1; O2SAT 98
[2021-09-24 05:16] LABS: Hematocrit 32.3 % (42.0-52.0); Hemoglobin 10.7 g/dL (14.0-18.0)
[2021-09-24 05:26] LABS: Anion Gap 3 mmol/L (8-16); Blood Urea Nitrogen 18 mg/dL (9-20); Calcium 8.9 mg/dL (8.4-10.2); Carbon Dioxide 31 mmol/L (22-30); Chloride 99 mmol/L (98-107); Estimated CRCL calculation 49 ml/min; Estimated Glomerular Filt Rate 58; Glucose 98 mg/dL (65-110); Potassium 3.5 mmol/L (3.4-5.0); Sodium 133 mmol/L (137-145)
[2021-09-24 08:20] VITALS: O2SAT 95
[2021-09-24] MEDS: ENOXAPARIN 40 MG/0.4 ML SYRINGE SUB-Q (08:21)
[2021-09-24 08:22] VITALS: PULSE 85
[2021-09-24] MEDS: DOCUSATE SODIUM 100 MG CAPSULE PO ×2 (08:22→20:15)
[2021-09-24] MEDS: FAMOTIDINE 20 MG TABLET PO ×2 (08:22→20:15)
[2021-09-24] MEDS: METOPROLOL TARTRATE 12.5 MG TABLET PO (08:22)
[2021-09-24] MEDS: polyethylene glycoL 3350 17 GM POWD.PACK PO ×2 (08:22→16:35)
[2021-09-24] MEDS: FINASTERIDE 5 MG TABLET PO (08:22)
[2021-09-24] MEDS: BISACODYL 10 MG SUPPOSITORY RECTAL (08:23)
[2021-09-24] MEDS: FUROSEMIDE INJ 40 MG/4 ML VIAL IV PUSH (08:31)
--- NOTE | 2021-09-24 09:10 | PCPTNOTE ---
The patient treatment was not able to be completed on this date due to patient stating that his stomach is bothering him and he is feeling weak. Pt. reports that he was feeling better yesterday but then today he started feeling worse again. Pt. stated that he feels like everything went downhill. Will plan to continue treatment per plan of care. RN notified.
[2021-09-24] MEDS: ONDANSETRON INJ 4 MG/2 ML VIAL IV PUSH (12:34)
[2021-09-24 14:05] VITALS: BP 118/59; PULSE 88; RESP 18; TEMP 36.6; O2SAT 98
--- NOTE | 2021-09-24 14:52 | P.PNIM_ITS ---
Progress Note: A&P Assessment and Plan (1) Ileus: Code(s): K56.7 - Ileus, unspecified Status: Acute Assessment and Plan: Patient with persistent constipation resulting in ileus * Patient has had 2-3 small stools following intervention but no significant bowel movement * Repeat KUB today showed nonobstructive bowel gas pattern was several persistent mildly dilated loops of air-filled small bowel consistent with ileus * Continue with MiraLax b.i.d. and Colace BID * Continue Dulcolax suppository qAM * Patient had symptomatic improvement following fleets enema yesterday * He is tolerating a regular diet with dietary supplements. Denies pain or bloating * Encourage increased ambulation though patient has been feeling weak and decreased motivation for continued activity. Orders to be out of bed with meals and walk in hallways. Ambulation encouraged extensively (2) Constipation: Qualifiers: Constipation type: unspecified constipation type Qualified Code(s): K59.00 - Constipation, unspecified Code(s): K59.00 - Constipation, unspecified Status: Acute Assessment and Plan: Plan as above (3) Multiple myeloma: Qualifiers: Multiple myeloma remission status: not in remission Qualified Code(s): C90.00 - Multiple myeloma not having achieved remission Code(s): C90.00 - Multiple myeloma not having achieved remission Status: Acute Assessment and Plan: Suspected. Patient noted to have bone mass and working diagnosis is multiple myeloma * He has been seen by Oncology and is awaiting a bone biopsy * He has generalized weakness and weight loss likely related to this new diagnosis * Appreciate PT and OT evaluation * May benefit from home health on discharge (4) Hypoxia: Code(s): R09.02 - Hypoxemia Status: Acute Assessment and Plan: Patient noted to be hypoxic down to 79-80% on 09/22 although no documented episodes of hypoxia * O2 sats normalized with 2 L supplemental O2 * Patient was weaned to room air but now is currently requiring 1 L supplemental O2 * RN noted that he is having desats when asleep in the 80s. Will proceed with apnea link tonight (5) Pleural effusion: Code(s): J90 - Pleural effusion, not elsewhere classified Status: Acute Assessment and Plan: CXR on 09/22 and CTA on 09/23 demonstrated bilateral pleural effusion, possibly loculated on left side * Discussed case and reviewed images with food technician, Dr. Gamboa on 09/23 * Favor pleural effusion to be secondary to pulmonary edema/volume overload as no signs of effusion on prior CXR and CT a/p just 3 days prior * Malignant pleural effusion felt to be unlikely as this would not have developed over just 3 days * Likely loculated effusion on left side due to pleural scarring from left round atelectasis which is a chronic finding as far back as 2018 * Review of imaging does show a left lower lobe mass which has been present since 2018 and may warrant further evaluation but at this time bone biopsy felt to be the most pertinent diagnostic approach. He can follow-up with pulmonology as an outpatient for further monitoring * Will continue with diuresis. See plan below. Continue supportive care including incentive spirometry * At this time, no indication for thoracentesis as the patient is relatively asymptomatic and as noted, previously planned bone biopsy felt to be more pertinent than evaluation of pleural fluid (6) Pulmonary edema: Code(s): J81.1 - Chronic pulmonary edema
--- NOTE | 2021-09-24 14:52 | PM.IMPN ---
Progress Note: A&P Assessment and Plan (1) Ileus: Code(s): K56.7 - Ileus, unspecified Status: Acute Assessment and Plan: Patient with persistent constipation resulting in ileus Patient has had 2-3 small stools following intervention but no significant bowel movement Repeat KUB today showed nonobstructive bowel gas pattern was several persistent mildly dilated loops of air-filled small bowel consistent with ileus Continue with MiraLax b.i.d. and Colace BID Continue Dulcolax suppository qAM Patient had symptomatic improvement following fleets enema yesterday He is tolerating a regular diet with dietary supplements. Denies pain or bloating Encourage increased ambulation though patient has been feeling weak and decreased motivation for continued activity. Orders to be out of bed with meals and walk in hallways. Ambulation encouraged extensively (2) Constipation: Qualifiers: Constipation type: unspecified constipation type Qualified Code(s): K59.00 - Constipation, unspecified Code(s): K59.00 - Constipation, unspecified Status: Acute Assessment and Plan: Plan as above (3) Multiple myeloma: Qualifiers: Multiple myeloma remission status: not in remission Qualified Code(s): C90.00 - Multiple myeloma not having achieved remission Code(s): C90.00 - Multiple myeloma not having achieved remission Status: Acute Assessment and Plan: Suspected. Patient noted to have bone mass and working diagnosis is multiple myeloma He has been seen by Oncology and is awaiting a bone biopsy He has generalized weakness and weight loss likely related to this new diagnosis Appreciate PT and OT evaluation May benefit from home health on discharge (4) Hypoxia: Code(s): R09.02 - Hypoxemia Status: Acute Assessment and Plan: Patient noted to be hypoxic down to 79-80% on 09/22 although no documented episodes of hypoxia O2 sats normalized with 2 L supplemental O2 Patient was weaned to room air but now is currently requiring 1 L supplemental O2 RN noted that he is having desats when asleep in the 80s. Will proceed with apnea link tonight (5) Pleural effusion: Code(s): J90 - Pleural effusion, not elsewhere classified Status: Acute Assessment and Plan: CXR on 09/22 and CTA on 09/23 demonstrated bilateral pleural effusion, possibly loculated on left side Discussed case and reviewed images with no bake molder, Dr. Gamboa on 3/31 Favor pleural effusion to be secondary to pulmonary edema/volume overload as no signs of effusion on prior CXR and CT a/p just 3 days prior Malignant pleural effusion felt to be unlikely as this would not have developed over just 3 days Likely loculated effusion on left side due to pleural scarring from left round atelectasis which is a chronic finding as far back as 2018 Review of imaging does show a left lower lobe mass which has been present since 2018 and may warrant further evaluation but at this time bone biopsy felt to be the most pertinent diagnostic approach. He can follow-up with pulmonology as an outpatient for further monitoring Will continue with diuresis. See plan below. Continue supportive care including incentive spirometry At this time, no indication for thoracentesis as the patient is relatively asymptomatic and as noted, previously planned bone biopsy felt to be more pertinent than evaluation of pleural fluid (6) Pulmonary edema: Code(s): J81.1 - Chronic pulmonary edema Status: Acute Assessment and Plan: Patient with onset of dyspnea following IV fluid rehydration IV fluids discontinued on 09/22 Continue Lasix 40 mg IV daily Monitor intake and output closely Heart healthy diet Patient reports recent echocardiogram about 2 weeks ago. Will attempt to obtain these results (7) Dysphagia: Code(s): R13.10 - Dysphagia, unspecified Status: Acute
[2021-09-24 19:51] VITALS: BP 112/52; PULSE 88; RESP 20; TEMP 36.4; O2SAT 99
[2021-09-24] MEDS: MELATONIN 5 MG TABLET PO (20:15)
[2021-09-24] MEDS: guaiFENesin 12 HR 600 MG TABCR PO (20:15)
[2021-09-24] MEDS: FLUTICASONE PROPIONATE 0.05% NA SPR 16 GM BTL (*BKC) 1 SPRAY NASAL (20:15)
[2021-09-24] MEDS: TAMSULOSIN HCL 0.4 MG CAPSULE PO (20:15)
--- NOTE | 2021-09-24 23:05 | PC.NURSE ---
Informed respiratory of apnea study ordered for the evening if 09/24/2021. Respiratory said he won't get a chance to get to the pt tonight and that the pt will be put on the schedule for tomorrow evening.
[2021-09-24] MEDS: CALCIUM CARBONATE (TUMS) 500 MG (200 MG ELEMENTAL) 400 MG PO (23:58)
[2021-09-25] VITALS (7 sets, daily range): BP systolic 100–112; BP diastolic 52–61; PULSE 83–89; RESP 16–20; TEMP 35.7–36.8; O2SAT 93–99
[2021-09-25 05:25] LABS: Hematocrit 32.3 % (42.0-52.0); Hemoglobin 10.9 g/dL (14.0-18.0); Mean Corpuscular HGB Conc 33.7 g/dl (32-36); Mean Corpuscular Hemoglobin 33.3 pg (26-34); Mean Corpuscular Volume 98.8 fl (80-100); Mean Platelet Volume 9.7 fl (7.4-10.4); Platelet Count Result 239 k/mm3 (150-375); Red Blood Count 3.27 M/mm3 (4.6-6.20); Red Cell Distribution Width 12.8 % (11.5-14.5); White Blood Count 12.4 K/mm3 (4.5-10.0)
[2021-09-25 05:32] LABS: Anion Gap 5 mmol/L (8-16); Blood Urea Nitrogen 20 mg/dL (9-20); Calcium 8.6 mg/dL (8.4-10.2); Carbon Dioxide 31 mmol/L (22-30); Chloride 98 mmol/L (98-107); Estimated CRCL calculation 53 ml/min; Estimated Glomerular Filt Rate > 60; Glucose 99 mg/dL (65-110); Potassium 3.6 mmol/L (3.4-5.0); Sodium 134 mmol/L (137-145)
[2021-09-25] MEDS: FAMOTIDINE 20 MG TABLET PO ×2 (08:54→20:01)
[2021-09-25] MEDS: ENOXAPARIN 40 MG/0.4 ML SYRINGE SUB-Q (08:54)
[2021-09-25] MEDS: FLUTICASONE PROPIONATE 0.05% NA SPR 16 GM BTL (*BKC) 1 SPRAY NASAL ×2 (08:54→20:01)
[2021-09-25] MEDS: METOPROLOL TARTRATE 12.5 MG TABLET PO (08:54)
[2021-09-25] MEDS: DOCUSATE SODIUM 100 MG CAPSULE PO ×2 (08:54→20:01)
[2021-09-25] MEDS: FINASTERIDE 5 MG TABLET PO (08:55)
[2021-09-25] MEDS: guaiFENesin 12 HR 600 MG TABCR PO ×2 (08:55→20:01)
[2021-09-25] MEDS: FUROSEMIDE INJ 40 MG/4 ML VIAL IV PUSH (08:55)
[2021-09-25] MEDS: polyethylene glycoL 3350 17 GM POWD.PACK PO ×2 (08:55→16:56)
--- NOTE | 2021-09-25 10:25 | P.PNIM_ITS ---
Progress Note: A&P Assessment and Plan (1) Ileus: Code(s): K56.7 - Ileus, unspecified Status: Acute Assessment and Plan: Patient with persistent constipation resulting in ileus * Patient has had 2-3 small stools following intervention but no significant bowel movement * Repeat KUB today showed nonobstructive bowel gas pattern was several persistent mildly dilated loops of air-filled small bowel consistent with ileus * Continue with MiraLax b.i.d. and Colace BID * Continue Dulcolax suppository qAM * Patient had symptomatic improvement following fleets enema yesterday * He is tolerating a regular diet with dietary supplements. Denies pain or bloating * Encourage increased ambulation though patient has been feeling weak and decreased motivation for continued activity. Orders to be out of bed with meals and walk in hallways. Ambulation encouraged extensively (2) Constipation: Qualifiers: Constipation type: unspecified constipation type Qualified Code(s): K59.00 - Constipation, unspecified Code(s): K59.00 - Constipation, unspecified Status: Acute Assessment and Plan: Plan as above (3) Multiple myeloma: Qualifiers: Multiple myeloma remission status: not in remission Qualified Code(s): C90.00 - Multiple myeloma not having achieved remission Code(s): C90.00 - Multiple myeloma not having achieved remission Status: Acute Assessment and Plan: Suspected. Patient noted to have bone mass and working diagnosis is multiple myeloma * He has been seen by Oncology and is awaiting a bone biopsy * He has generalized weakness and weight loss likely related to this new diagnosis * Appreciate PT and OT evaluation * May benefit from home health on discharge (4) Hypoxia: Code(s): R09.02 - Hypoxemia Status: Acute Assessment and Plan: Patient noted to be hypoxic down to 79-80% on 09/22 although no documented episodes of hypoxia * O2 sats normalized with 2 L supplemental O2 * Patient was weaned to room air but now is currently requiring 1 L supplemental O2 * RN noted that he is having desats when asleep in the 80s. Will proceed with apnea link tonight * Apnealink was not performed overnight and it is unclear as to why. It is to be performed tonight. (5) Pleural effusion: Code(s): J90 - Pleural effusion, not elsewhere classified Status: Acute Assessment and Plan: CXR on 09/22 and CTA on 09/23 demonstrated bilateral pleural effusion, possibly loculated on left side * Discussed case and reviewed images with manager agricultural, Dr. Gamboa on 09/23 * Favor pleural effusion to be secondary to pulmonary edema/volume overload as no signs of effusion on prior CXR and CT a/p just 3 days prior * Malignant pleural effusion felt to be unlikely as this would not have developed over just 3 days * Likely loculated effusion on left side due to pleural scarring from left round atelectasis which is a chronic finding as far back as 2018 * Review of imaging does show a left lower lobe mass which has been present since 2018 and may warrant further evaluation but at this time bone biopsy felt to be the most pertinent diagnostic approach. He can follow-up with pulmonology as an outpatient for further monitoring * Will continue with diuresis. See plan below. Continue supportive care i ncluding incentive spirometry * At this time, no indication for thoracentesis as the patient is relatively asymptomatic and as noted, previously planned bone biopsy felt to be more pertinent than evaluation of pleura
--- NOTE | 2021-09-25 10:25 | PM.IMPN ---
Progress Note: A&P Assessment and Plan (1) Ileus: Code(s): K56.7 - Ileus, unspecified Status: Acute Assessment and Plan: Patient with persistent constipation resulting in ileus Patient has had 2-3 small stools following intervention but no significant bowel movement Repeat KUB today showed nonobstructive bowel gas pattern was several persistent mildly dilated loops of air-filled small bowel consistent with ileus Continue with MiraLax b.i.d. and Colace BID Continue Dulcolax suppository qAM Patient had symptomatic improvement following fleets enema yesterday He is tolerating a regular diet with dietary supplements. Denies pain or bloating Encourage increased ambulation though patient has been feeling weak and decreased motivation for continued activity. Orders to be out of bed with meals and walk in hallways. Ambulation encouraged extensively (2) Constipation: Qualifiers: Constipation type: unspecified constipation type Qualified Code(s): K59.00 - Constipation, unspecified Code(s): K59.00 - Constipation, unspecified Status: Acute Assessment and Plan: Plan as above (3) Multiple myeloma: Qualifiers: Multiple myeloma remission status: not in remission Qualified Code(s): C90.00 - Multiple myeloma not having achieved remission Code(s): C90.00 - Multiple myeloma not having achieved remission Status: Acute Assessment and Plan: Suspected. Patient noted to have bone mass and working diagnosis is multiple myeloma He has been seen by Oncology and is awaiting a bone biopsy He has generalized weakness and weight loss likely related to this new diagnosis Appreciate PT and OT evaluation May benefit from home health on discharge (4) Hypoxia: Code(s): R09.02 - Hypoxemia Status: Acute Assessment and Plan: Patient noted to be hypoxic down to 79-80% on 09/22 although no documented episodes of hypoxia O2 sats normalized with 2 L supplemental O2 Patient was weaned to room air but now is currently requiring 1 L supplemental O2 RN noted that he is having desats when asleep in the 80s. Will proceed with apnea link tonight Apnealink was not performed overnight and it is unclear as to why. It is to be performed tonight. (5) Pleural effusion: Code(s): J90 - Pleural effusion, not elsewhere classified Status: Acute Assessment and Plan: CXR on 09/22 and CTA on 09/23 demonstrated bilateral pleural effusion, possibly loculated on left side Discussed case and reviewed images with piano tuner, Dr. Gamboa on 09/23 Favor pleural effusion to be secondary to pulmonary edema/volume overload as no signs of effusion on prior CXR and CT a/p just 3 days prior Malignant pleural effusion felt to be unlikely as this would not have developed over just 3 days Likely loculated effusion on left side due to pleural scarring from left round atelectasis which is a chronic finding as far back as 2017 Review of imaging does show a left lower lobe mass which has been present since 2018 and may warrant further evaluation but at this time bone biopsy felt to be the most pertinent diagnostic approach. He can follow-up with pulmonology as an outpatient for further monitoring Will continue with diuresis. See plan below. Continue supportive care including incentive spirometry At this time, no indication for thoracentesis as the patient is relatively asymptomatic and as noted, previously planned bone biopsy felt to be more pertinent than evaluation of pleural fluid (6) Pulmonary edema: Qualifiers: Chronicity: acute Qualified Code(s): J81.0 - Acute pulmonary edema Code(s): J81.1 - Chronic pulmonary edema Status: Acute Assessment and Plan: Patient with onset of dyspnea following IV fluid rehydration IV fluids discontinued on 09/22 Continue Lasix 40 mg IV daily Monitor intake and output closely Heart healthy di
[2021-09-25] MEDS: AMPICILLIN TRIHYDRATE 500 MG CAPSULE PO ×3 (11:51→20:01)
[2021-09-25] MEDS: TAMSULOSIN HCL 0.4 MG CAPSULE PO (20:01)
[2021-09-25] MEDS: CALCIUM CARBONATE (TUMS) 500 MG (200 MG ELEMENTAL) 400 MG PO (20:01)
[2021-09-26 05:34] LABS: Basophils Absolute Auto 0.1 K/mm3 (0.0-0.1); Basophils Percent Auto 0.5 % (0.2-1.2); Eosinophils Percent Auto 0.3 % (0-4.4); Hemoglobin 11.7 g/dL (14.0-18.0); Immature Granulocyte Absolute 0.09 K/mm3 (0.00-0.031); Immature Granulocyte Percent A 0.8 % (0-0.5); Lymphocytes Absolute Auto 1.61 K/mm3 (0.9-3.2); Lymphocytes Percent Auto 13.7 % (18.3-44.2); Mean Corpuscular HGB Conc 32.5 g/dl (32-36); Mean Corpuscular Hemoglobin 33.1 pg (26-34); Monocytes Absolute Auto 1.1 K/mm3 (0.1-0.6); Monocytes Percent Auto 9.6 % (2.6-8.5); Neutrophils Absolute Auto 8.8 K/mm3 (1.3-6.7); Neutrophils Percent Auto 75.1 % (45.5-73.1); Platelet Count Result 282 k/mm3 (150-375); Red Blood Count 3.53 M/mm3 (4.6-6.20); Red Cell Distribution Width 13.2 % (11.5-14.5); White Blood Count 11.7 K/mm3 (4.5-10.0)
[2021-09-26] MEDS: AMPICILLIN TRIHYDRATE 500 MG CAPSULE PO ×4 (05:37→20:03)
[2021-09-26 05:43] LABS: Alanine Aminotransferase 35 U/L (4-50); Albumin Level 3.2 g/dL (3.5-5.1); Alkaline Phosphatase 92 U/L (38-126); Anion Gap 9 mmol/L (8-16); Aspartate Amino Transferase 51 U/L (17-59); Bilirubin,Total 1.6 mg/dL (0.2-1.3); Blood Urea Nitrogen 28 mg/dL (9-20); Calcium 9.5 mg/dL (8.4-10.2); Carbon Dioxide 31 mmol/L (22-30); Chloride 94 mmol/L (98-107); Estimated CRCL calculation 49 ml/min; Estimated Glomerular Filt Rate 58; Glucose 110 mg/dL (65-110); Magnesium 1.9 mg/dL (1.6-2.3); Potassium 3.8 mmol/L (3.4-5.0); Sodium 134 mmol/L (137-145)
[2021-09-26 05:46] VITALS: BP 129/60; PULSE 101; RESP 18; TEMP 36.7; O2SAT 93
[2021-09-26 08:39] VITALS: PULSE 101
[2021-09-26] MEDS: FINASTERIDE 5 MG TABLET PO (08:39)
[2021-09-26] MEDS: guaiFENesin 12 HR 600 MG TABCR PO ×2 (08:39→20:03)
[2021-09-26] MEDS: ENOXAPARIN 40 MG/0.4 ML SYRINGE SUB-Q (08:39)
[2021-09-26] MEDS: FUROSEMIDE INJ 40 MG/4 ML VIAL IV PUSH (08:39)
[2021-09-26] MEDS: FAMOTIDINE 20 MG TABLET PO ×2 (08:39→20:03)
[2021-09-26] MEDS: polyethylene glycoL 3350 17 GM POWD.PACK PO ×2 (08:39→16:04)
[2021-09-26] MEDS: METOPROLOL TARTRATE 12.5 MG TABLET PO (08:39)
[2021-09-26] MEDS: FLUTICASONE PROPIONATE 0.05% NA SPR 16 GM BTL (*BKC) 1 SPRAY NASAL ×2 (08:39→20:03)
[2021-09-26] MEDS: DOCUSATE SODIUM 100 MG CAPSULE PO ×2 (08:40→20:03)
[2021-09-26 08:45] VITALS: PULSE 101; RESP 18; O2SAT 93
--- NOTE | 2021-09-26 11:57 | PM.IMPN ---
Progress Note: A&P Assessment and Plan (1) Ileus: Code(s): K56.7 - Ileus, unspecified Status: Resolved Assessment and Plan: Patient with persistent constipation resulting in ileus Patient has had 2-3 small stools following intervention but no significant bowel movement Repeat KUB today showed nonobstructive bowel gas pattern was several persistent mildly dilated loops of air-filled small bowel consistent with ileus Continue with MiraLax b.i.d. and Colace BID Continue Dulcolax suppository qAM Patient had symptomatic improvement following fleets enema yesterday He is tolerating a regular diet with dietary supplements. Denies pain or bloating Encourage increased ambulation though patient has been feeling weak and decreased motivation for continued activity. Orders to be out of bed with meals and walk in hallways. Ambulation encouraged extensively RESOLVED as of 09/26/2021. Pt. with 2 BM's in past 24 hours, and active Bowel sounds in all 4 quads. (2) Constipation: Qualifiers: Constipation type: unspecified constipation type Qualified Code(s): K59.00 - Constipation, unspecified Code(s): K59.00 - Constipation, unspecified Status: Resolved Assessment and Plan: RESOLVED (3) Multiple myeloma: Qualifiers: Multiple myeloma remission status: not in remission Qualified Code(s): C90.00 - Multiple myeloma not having achieved remission Code(s): C90.00 - Multiple myeloma not having achieved remission Status: Acute Assessment and Plan: - Patient noted to have bone mass and working diagnosis is multiple myeloma. He is aware that he has to have his strength back in order to undergo testing and possible treatment. He has been seen by Oncology and is awaiting a bone biopsy He has generalized weakness and weight loss likely related to this new diagnosis Appreciate PT and OT evaluation, as pt is very weak and according to their notes he has good days and bad days with endurance, but he has not been able to ambulate outside of his room in the halls due to his level of weakness. May benefit from home health vs placement for rehab at discharge. Pt. has oncologist already for which he will follow up with at discharge. (4) Hypoxia: Code(s): R09.02 - Hypoxemia Status: Acute Assessment and Plan: Patient noted to be hypoxic down to 79-80% on 09/22 although no documented episodes of hypoxia O2 sats normalized with 2 L supplemental O2 Patient was weaned to room air but now is currently requiring 1 L supplemental O2 RN noted that he is having desats when asleep in the 80s. Will proceed with apnea link tonight Apnealink was not performed overnight and it is unclear as to why. It is to be performed tonight. 09/24: Apnealink results sohow that he had 359 desturations overnight, as low as 65%. I question whether or not this is contributing to the cause of the patient's overall fatigue. If so, it will need to be corrected to ensure he has adequate endurance for treatment of potential Mulitple Myeloma. He will need CPAP to aid in his therapy. Pulmonology to be consulted and the pt. will need oxygen at night to maintain his saturations. (5) Pleural effusion: Code(s): J90 - Pleural effusion, not elsewhere classified Status: Acute Assessment and Plan: CXR on 09/22 and CTA on 09/23 demonstrated bilateral pleural effusion, possibly loculated on left side Discussed case and reviewed images with monitor and storage bin tender, Dr. Gamboa on 09/23 Favor pleural effusion to be secondary to pulmonary edema/volume overload as no signs of effusion on prior CXR and CT a/p just 3 days prior Malignant pleural effusion felt to be unlikely as this would not have developed over just 3 days Likely loculated effusion on left side due to pleural scarring from left round atelectasis which is a chronic finding as far back as 2017 Review of imaging does show a left lower lobe m
[2021-09-26] MEDS: SIMETHICONE 125 MG CHEW TAB PO ×3 (12:54→20:03)
[2021-09-26 13:54] VITALS: BP 105/53; PULSE 91; RESP 16; TEMP 36.2; O2SAT 94
[2021-09-26] MEDS: TAMSULOSIN HCL 0.4 MG CAPSULE PO (20:03)
[2021-09-26] MEDS: traZODone HCL 25 MG TABLET PO (20:03)
[2021-09-26 22:00] VITALS: BP 122/64; PULSE 88; RESP 16; TEMP 36.2; O2SAT 94
[2021-09-27] VITALS (11 sets, daily range): BP systolic 121–126; BP diastolic 57–69; PULSE 82–91; RESP 14–18; TEMP 36.1–36.8; O2SAT 93–97
[2021-09-27] MEDS: AMPICILLIN TRIHYDRATE 500 MG CAPSULE PO ×4 (05:48→20:06)
--- NOTE | 2021-09-27 07:17 | PM.IMPN ---
Progress Note: A&P Assessment and Plan (1) Ileus: Code(s): K56.7 - Ileus, unspecified Status: Resolved Assessment and Plan: Patient with persistent constipation resulting in ileus Patient has had 2-3 small stools following intervention but no significant bowel movement Repeat KUB today showed nonobstructive bowel gas pattern was several persistent mildly dilated loops of air-filled small bowel consistent with ileus Continue with MiraLax b.i.d. and Colace BID Continue Dulcolax suppository qAM Patient had symptomatic improvement following fleets enema yesterday He is tolerating a regular diet with dietary supplements. Denies pain or bloating Encourage increased ambulation though patient has been feeling weak and decreased motivation for continued activity. Orders to be out of bed with meals and walk in hallways. Ambulation encouraged extensively RESOLVED as of 09/26/2021. Pt. with 2 BM's in past 24 hours, and active Bowel sounds in all 4 quads. (2) Constipation: Qualifiers: Constipation type: unspecified constipation type Qualified Code(s): K59.00 - Constipation, unspecified Code(s): K59.00 - Constipation, unspecified Status: Resolved Assessment and Plan: RESOLVED (3) Multiple myeloma: Qualifiers: Multiple myeloma remission status: not in remission Qualified Code(s): C90.00 - Multiple myeloma not having achieved remission Code(s): C90.00 - Multiple myeloma not having achieved remission Status: Acute Assessment and Plan: - Patient noted to have bone mass and working diagnosis is multiple myeloma. He is aware that he has to have his strength back in order to undergo testing and possible treatment. He has been seen by Oncology and is awaiting a bone biopsy He has generalized weakness and weight loss likely related to this new diagnosis Appreciate PT and OT evaluation, as pt is very weak and according to their notes he has good days and bad days with endurance, but he has not been able to ambulate outside of his room in the halls due to his level of weakness. May benefit from home health vs placement for rehab at discharge. Pt. has oncologist already for which he will follow up with at discharge. (4) Hypoxia: Code(s): R09.02 - Hypoxemia Status: Acute Assessment and Plan: Patient noted to be hypoxic down to 79-80% on 09/22 although no documented episodes of hypoxia O2 sats normalized with 2 L supplemental O2 Patient was weaned to room air but now is currently requiring 1 L supplemental O2 RN noted that he is having desats when asleep in the 80s. Will proceed with apnea link tonight Apnealink was not performed overnight and it is unclear as to why. It is to be performed tonight. 09/24: Apnealink results sohow that he had 359 desturations overnight, as low as 65%. I question whether or not this is contributing to the cause of the patient's overall fatigue. If so, it will need to be corrected to ensure he has adequate endurance for treatment of potential Mulitple Myeloma. He will need CPAP to aid in his therapy. Pulmonology to be consulted and the pt. will need oxygen at night to maintain his saturations. Pt. with abnormal CT scan showing developing infiltrates. Rocephin and Levaquin added as pt. has an allergy to Azithromycin. Per Dr. Sahu, pt. will have an ABG on room air today and a repeat Apnea link on 2L tonight in an attempt to correct the Hypoxemia. (5) Pleural effusion: Code(s): J90 - Pleural effusion, not elsewhere classified Status: Acute Assessment and Plan: CXR on 09/22 and CTA on 09/23 demonstrated bilateral pleural effusion, possibly loculated on left side Discussed case and reviewed images with overlock sewing machine operator, Dr. Gamboa on 09/23 Favor pleural effusion to be secondary to pulmonary edema/volume overload as no signs of effusion on prior CXR and CT a/p just 3 days prior Malignant pleural effusi
[2021-09-27] MEDS: guaiFENesin 12 HR 600 MG TABCR PO ×2 (08:02→20:06)
[2021-09-27] MEDS: traZODone HCL 25 MG TABLET PO ×2 (08:02→20:06)
[2021-09-27] MEDS: FLUTICASONE PROPIONATE 0.05% NA SPR 16 GM BTL (*BKC) 1 SPRAY NASAL ×2 (08:02→20:05)
[2021-09-27] MEDS: SIMETHICONE 125 MG CHEW TAB PO ×4 (08:03→20:06)
[2021-09-27] MEDS: DOCUSATE SODIUM 100 MG CAPSULE PO ×2 (08:03→20:06)
[2021-09-27] MEDS: METOPROLOL TARTRATE 12.5 MG TABLET PO (08:03)
[2021-09-27] MEDS: FINASTERIDE 5 MG TABLET PO (08:03)
[2021-09-27] MEDS: FAMOTIDINE 20 MG TABLET PO ×2 (08:03→20:06)
[2021-09-27] MEDS: ENOXAPARIN 40 MG/0.4 ML SYRINGE SUB-Q (08:04)
[2021-09-27] MEDS: FUROSEMIDE INJ 40 MG/4 ML VIAL IV PUSH (08:04)
[2021-09-27] MEDS: polyethylene glycoL 3350 17 GM POWD.PACK PO ×2 (08:04→17:24)
[2021-09-27] MEDS: IPRATROPIUM BR 0.02% INH SOLN 0.5 MG/2.5 ML VIAL INHALATION ×3 (08:45→21:16)
[2021-09-27 09:36] LABS: NT Pro B Type Natriuretic Pept 32200 pg/mL (5-100)
--- NOTE | 2021-09-27 11:26 | PM.CNPUL ---
Assessment and Plan Assessment and plan (1) Nocturnal hypoxia: Code(s): G47.34 - Idiopathic sleep related nonobstructive alveolar hypoventilation Status: Acute Assessment and Plan: Patient went nocturnal hypoxemia with an oxygen desaturation index of 61 per hour. Patient also complains of daytime hypersomnia, snoring and some grunting in his sleep. I suspect the patient may have obstructive sleep apnea. He ultimately need an outpatient sleep study to make this diagnosis. While awaiting for his outpatient sleep study, I will attempt to give him supplemental oxygen at night to relieve his nocturnal hypoxemia and I will repeat an overnight oximetry on 2 L nasal cannula. I Will check an ABG during the day on room air to assess for hypercarbia. I will check a TSH and free T4 on 09/28. (2) Pneumonia: Qualifiers: Pneumonia type: due to unspecified organism Laterality: right Lung location: middle lobe of lung Qualified Code(s): J18.9 - Pneumonia, unspecified organism Code(s): J18.9 - Pneumonia, unspecified organism Status: Acute Assessment and Plan: Patient has no fever, chills, phlegm production or hemoptysis. Patient's white blood cell count is elevated at 12.4 on 07/30 and today is 11.7. Patient is being treated with ceftriaxone and Levaquin for very minimal infiltrate in the right middle lobe on his CT scan from 09/26. Sputum culture is pending. Will continue antibiotics at this time. Discussed with Alondra White will follow with you. History of Present Illness History of Present Illness Consult date: 09/27/21 Requesting physician: Jeanne Chowdhury APN-C Reason for consult: hypoxemia Chief complaint: Constipation, Ileus, Gen Weakness Narrative: 09/27/2021: This is a new pulmonary consult for nocturnal hypoxemia 81-year-old with a history of coronary artery disease, BPH, hypertension, COVID 06/2021, presumed multiple myeloma presented on 09/20 with Enterococcus UTI and ileus. Patient given IV fluids and then developed shortness of breath and bilateral pleural effusions. He is being diuresed with lasix and repeat CT scan on demonstrated improved effusions, left pleural thickening, minimal ground-glass infiltrate right middle lobe consistent with atelectasis or pneumonia, chronic volume loss and rounded atelectasis in the left lower lobe and lytic bone lesions consistent with multiple myeloma. Patient had an overnight oximetry on 09/25 on room air demonstrating a baseline saturation 90%, low saturation 65%, time with saturation less than or equal to 88 minutes was 228 minutes or 65% of the monitored time. I was consulted 09/27 today the patient tells me that he has no respiratory complaints and is breathing at his baseline. He has no fever, no chills, no chest pain no phlegm production no hemoptysis. He remains very weak but denies shortness of breath. Tells me that he has been weak especially since having COVID in June 2021. He did not require hospitalization but was weak with minimal shortness of breath for approximately 1 month. The patient states that he does snore a little bit. The who was in the room states that he does grunt at night but she is not when a signet witnessed any nancy apnea episodes. He is daytime hypersomnia and falls asleep easily. He has no morning headaches. The patient tells me he had a sleep study 5-10 years ago at a sleep center and did not require any treatment at that time. DATA: EXAMINATION:CT diagnostic chest w con DATE: 09/26/2021 14:36 INDICATION: Pleural effusion. Pulmonary edema. TECHNIQUE: Computed tomography (CT) of the chest was performed with 75 mL Omnipaque 350 intravenous contrast. Automated exposure control and iterative reconstruction technique were employed. The dose-length product (DLP) was 175.68 mGy-cm. COMPARISON: Chest CT 09/23/2021 FINDINGS: There is mild scarring at the
[2021-09-27 11:51] LABS: Alveolar/Arterial O2 Gradient 33.8 mmHg; Base Excess ABG 8.1 mEq/l (+/-2.0); Device ROOM AIR; Fractional Inspired Oxygen 21 %; HCO3 ABG 32.3 mEq/l (22.0-26.0); Modified Allen's Test Pass; Oxygen Content ABG 15.1 %vol (16.0-22.0); Oxyhemoglobin 91.5 % THb (90.0-100.0); PO2 ABG 64.4 mmHg (80.0-100.0); PO2 FiO2 Ratio Arterial Blood 3.07 %; Site Drawn RIGHT RADIAL; Total Hemoglobin 11.7 g/dL (12.0-18.0); pH ABG 7.493 (7.350-7.450)
[2021-09-27] MEDS: CALCIUM CARBONATE (TUMS) 500 MG (200 MG ELEMENTAL) 400 MG PO (15:42)
[2021-09-27 16:07] LABS: Basophils Absolute Auto 0.1 K/mm3 (0.0-0.1); Basophils Percent Auto 0.5 % (0.2-1.2); Eosinophils Percent Auto 0.2 % (0-4.4); Hemoglobin 11.5 g/dL (14.0-18.0); Immature Granulocyte Absolute 0.08 K/mm3 (0.00-0.031); Immature Granulocyte Percent A 0.8 % (0-0.5); Lymphocytes Percent Auto 10.4 % (18.3-44.2); Mean Corpuscular HGB Conc 31.9 g/dl (32-36); Mean Corpuscular Volume 103.2 fl (80-100); Mean Platelet Volume 10.6 fl (7.4-10.4); Monocytes Percent Auto 9.4 % (2.6-8.5); Neutrophils Absolute Auto 8.3 K/mm3 (1.3-6.7); Neutrophils Percent Auto 78.7 % (45.5-73.1); Platelet Count Result 286 k/mm3 (150-375); Red Blood Count 3.49 M/mm3 (4.6-6.20); Red Cell Distribution Width 13.2 % (11.5-14.5); White Blood Count 10.5 K/mm3 (4.5-10.0)
[2021-09-27] MEDS: TAMSULOSIN HCL 0.4 MG CAPSULE PO (20:06)
[2021-09-28] VITALS (7 sets, daily range): BP systolic 104–122; BP diastolic 49–65; PULSE 84–96; RESP 14–21; TEMP 36.3–37.1; O2SAT 93–100
[2021-09-28] MEDS: CALCIUM CARBONATE (TUMS) 500 MG (200 MG ELEMENTAL) 400 MG PO (03:56)
--- NOTE | 2021-09-28 04:04 | PCRCNOTE ---
0200 UPD treatment not given due to pt being on sleep study. Next available administration at 0800.
[2021-09-28] MEDS: AMPICILLIN TRIHYDRATE 500 MG CAPSULE PO ×4 (06:02→19:54)
[2021-09-28 06:07] LABS: Alanine Aminotransferase 29 U/L (4-50); Alkaline Phosphatase 79 U/L (38-126); Anion Gap 5 mmol/L (8-16); Aspartate Amino Transferase 46 U/L (17-59); Bilirubin,Total 1.1 mg/dL (0.2-1.3); Blood Urea Nitrogen 36 mg/dL (9-20); Calcium 9.7 mg/dL (8.4-10.2); Carbon Dioxide 33 mmol/L (22-30); Chloride 91 mmol/L (98-107); Estimated CRCL calculation 45 ml/min; Estimated Glomerular Filt Rate 53; Glucose 86 mg/dL (65-110); Magnesium 2.1 mg/dL (1.6-2.3); Potassium 3.3 mmol/L (3.4-5.0); Sodium 129 mmol/L (137-145)
[2021-09-28 06:29] LABS: Free T4 Free Thyroxine 1.87 ng/mL (0.78-2.19)
[2021-09-28] MEDS: IPRATROPIUM BR 0.02% INH SOLN 0.5 MG/2.5 ML VIAL INHALATION (09:04)
[2021-09-28] MEDS: ENOXAPARIN 40 MG/0.4 ML SYRINGE SUB-Q (09:08)
[2021-09-28] MEDS: FLUTICASONE PROPIONATE 0.05% NA SPR 16 GM BTL (*BKC) 1 SPRAY NASAL ×2 (09:08→19:55)
[2021-09-28] MEDS: FUROSEMIDE INJ 40 MG/4 ML VIAL IV PUSH (09:08)
[2021-09-28] MEDS: METOPROLOL TARTRATE 12.5 MG TABLET PO (09:09)
[2021-09-28] MEDS: polyethylene glycoL 3350 17 GM POWD.PACK PO (09:10)
[2021-09-28] MEDS: guaiFENesin 12 HR 600 MG TABCR PO ×2 (09:10→19:55)
[2021-09-28] MEDS: FINASTERIDE 5 MG TABLET PO (09:10)
[2021-09-28] MEDS: SIMETHICONE 125 MG CHEW TAB PO ×4 (09:10→19:55)
[2021-09-28] MEDS: FAMOTIDINE 20 MG TABLET PO ×2 (09:12→19:54)
[2021-09-28] MEDS: DOCUSATE SODIUM 100 MG CAPSULE PO ×2 (09:12→19:54)
--- NOTE | 2021-09-28 09:55 | PM.PNPUL ---
Progress Note: A&P Assessment and Plan (1) Nocturnal hypoxia: Code(s): G47.34 - Idiopathic sleep related nonobstructive alveolar hypoventilation Status: Acute Assessment and Plan: 09/27 Patient went nocturnal hypoxemia with an oxygen desaturation index of 61 per hour. Patient also complains of daytime hypersomnia, snoring and some grunting in his sleep. I suspect the patient may have obstructive sleep apnea. He ultimately need an outpatient sleep study to make this diagnosis. While awaiting for his outpatient sleep study, I will attempt to give him supplemental oxygen at night to relieve his nocturnal hypoxemia and I will repeat an overnight oximetry on 2 L nasal cannula. I Will check an ABG during the day on room air to assess for hypercarbia. I will check a TSH and free T4 on 09/28. 09/28 Patient tells me he has no respiratory complaints at this time. Patient slept poorly last night with his overnight oximetry on 2 L nasal cannula. This study demonstrated his baseline saturation was 98%, lowest saturation 93%, time with saturation less than or equal to 88% was 0 minutes. From a pulmonary perspective patient is ready for discharge on these pulmonary medicines. Levaquin 750 mg p.o. q.day through 10/03 Oxygen at rest and with ambulation with a formal home O2 assessment prior to discharge if he is going home. If he goes to and living facility they will manage his daytime oxygen. 2 L oxygen when he sleeps. Lasix diuresis per hospitalist. Rescue albuterol 2 puffs p.o. q.4 hours p.r.n. shortness of breath or wheezing. Follow-up in the Pulmonary Clinic 3-4 weeks. Patient will need an outpatient sleep study and outpatient PFTs. I gave him our business card and informed our materials scheduler (2) Pneumonia: Qualifiers: Pneumonia type: due to unspecified organism Laterality: right Lung location: middle lobe of lung Qualified Code(s): J18.9 - Pneumonia, unspecified organism Code(s): J18.9 - Pneumonia, unspecified organism Status: Acute Assessment and Plan: 09/27 Patient has no fever, chills, phlegm production or hemoptysis. Patient's white blood cell count is elevated at 12.4 on 07/30 and today is 11.7. Patient is being treated with ceftriaxone and Levaquin for very minimal infiltrate in the right middle lobe on his CT scan from 09/26. Sputum culture is pending. Will continue antibiotics at this time. 09/28 He has no wheezes and has no pneumonia complaints. he states he feels no benefit from the nebulized ipratropium. Would continue IV antibiotics while he is in hospital in convert to Levaquin 750 mg p.o. q.day to finish a total of 7 days. Discussed with Alondra White will sign off, call with questions Subjective Date/time seen: 09/28/21 09:55 Interval history: 09/27/2021: This is a new pulmonary consult for nocturnal hypoxemia 81-year-old with a history of coronary artery disease, BPH, hypertension, COVID 06/2021, presumed multiple myeloma presented on 09/20 with Enterococcus UTI and ileus. Patient given IV fluids and then developed shortness of breath and bilateral pleural effusions. He is being diuresed with lasix and repeat CT scan on demonstrated improved effusions, left pleural thickening, minimal ground-glass infiltrate right middle lobe consistent with atelectasis or pneumonia, chronic volume loss and rounded atelectasis in the left lower lobe and lytic bone lesions consistent with multiple myeloma. Patient had an overnight oximetry on 09/25 on room air demonstrating a baseline saturation 90%, low saturation 65%, time with saturation less than or equal to 88 minutes was 228 minutes or 65% of the monitored time. I was consulted 09/27 today the patient tells me that he has no respiratory complaints and is breathing at his baseline. He has no fever, no chills, no chest pain no phlegm production no hemoptysis. He remains very weak but denies shortness o
--- NOTE | 2021-09-28 10:06 | PM.IMPN ---
Progress Note: A&P Assessment and Plan (1) Ileus: Code(s): K56.7 - Ileus, unspecified Status: Resolved Assessment and Plan: Patient with persistent constipation resulting in ileus Patient has had 2-3 small stools following intervention but no significant bowel movement Repeat KUB today showed nonobstructive bowel gas pattern was several persistent mildly dilated loops of air-filled small bowel consistent with ileus Continue with MiraLax b.i.d. and Colace BID Continue Dulcolax suppository qAM Patient had symptomatic improvement following fleets enema yesterday He is tolerating a regular diet with dietary supplements. Denies pain or bloating Encourage increased ambulation though patient has been feeling weak and decreased motivation for continued activity. Orders to be out of bed with meals and walk in hallways. Ambulation encouraged extensively RESOLVED as of 09/26/2021. Pt. with 2 BM's in past 24 hours, and active Bowel sounds in all 4 quads. 4/5: bowel sounds active in all 4 quadrants, and negative abdominal exam. No current concern for ileu (2) Constipation: Qualifiers: Constipation type: unspecified constipation type Qualified Code(s): K59.00 - Constipation, unspecified Code(s): K59.00 - Constipation, unspecified Status: Resolved Assessment and Plan: RESOLVED - 09/28: Stooling without difficulty (3) Multiple myeloma: Qualifiers: Multiple myeloma remission status: not in remission Qualified Code(s): C90.00 - Multiple myeloma not having achieved remission Code(s): C90.00 - Multiple myeloma not having achieved remission Status: Acute Assessment and Plan: - Patient noted to have bone mass and working diagnosis is multiple myeloma. He is aware that he has to have his strength back in order to undergo testing and possible treatment. He has been seen by Oncology and is awaiting a bone biopsy He has generalized weakness and weight loss likely related to this new diagnosis Appreciate PT and OT evaluation, as pt is very weak and according to their notes he has good days and bad days with endurance, but he has not been able to ambulate outside of his room in the halls due to his level of weakness. May benefit from home health vs placement for rehab at discharge. Pt. has oncologist already for which he will follow up with at discharge. (4) Hypoxia: Code(s): R09.02 - Hypoxemia Status: Acute Assessment and Plan: Patient noted to be hypoxic down to 79-80% on 09/22 although no documented episodes of hypoxia O2 sats normalized with 2 L supplemental O2 Patient was weaned to room air but now is currently requiring 1 L supplemental O2 RN noted that he is having desats when asleep in the 80s. Will proceed with apnea link tonight Apnealink was not performed overnight and it is unclear as to why. It is to be performed tonight. 09/24: Apnealink results show that he had 359 desaturations overnight, as low as 65%. I question whether or not this is contributing to the cause of the patient's overall fatigue. If so, it will need to be corrected to ensure he has adequate endurance for treatment of potential Multiple Myeloma. He will need CPAP to aid in his therapy. Pulmonology to be consulted and the pt. will need oxygen at night to maintain his saturations. Pt. with abnormal CT scan showing developing infiltrates. Rocephin and Levaquin added as pt. has an allergy to Azithromycin. Per Dr. Sahu, pt. will have an ABG on room air today and a repeat Apnea link on 2L tonight in an attempt to correct the Hypoxemia. patient have repeat ApneaLink last night that showed adequate oxygenation on 2 L of oxygen. Patient endorses that he still does not sleep well. ABG did not show any appreciative hypercapnia. this patient will need an outpatient sleep study upon discharge To evaluate for sleep apnea. (5) Pleural effusion: Code(s): J90 - Pleu
--- NOTE | 2021-09-28 10:54 | PCPTNOTE ---
Attempted to see patient for PT at this time, however patient was on toilet and reported he will be a while and does not want to work with PT at this time.
--- NOTE | 2021-09-28 11:33 | PCNWS ---
Weekly nutritional screen. Spoke with MD today regarding diet. Patient had been admitted with regular diet order, changed to heart healthy. MD orders to liberalize diet to regular diet order. Oral Intake has been 50-100% of trays. Patient has also been receiving Ensure compact BID, providing an additional 220 kcals and 9 gms protein. Agree with diet orders. No nutritional needs at this time.
--- NOTE | 2021-09-28 12:59 | PDONCCN ---
HPI - Date of Consult Date/Time: 09/28/21 12:59 Requesting Physician: ROSALIND Segura Primary Care Provider: Vinny Blanton, - Consult Narrative Reason for consult: Multiple myeloma Narrative: Ron Hickey is a 81 year old male with history of coronary artery disease bladder cancer status post TURBT done, BPH and hypertension recently was admitted to the hospital with generalized weakness. CT scan done at that time showed widespread lytic lesion consistent with multiple myeloma. He has lost 14 lb weight. He has no back into the hospital with generalized weakness. He has been having constipation without any melena hematochezia. Workup done during the last hospital stay showed elevated free lambda light chain of 2931. CT chest done on September 21 showed small pleural effusion along with worsened airspace and ground-glass opacities in the perihilar right middle lobe consistent with pneumonia. There was lytic lesion consistent with multiple myeloma. Review of Systems - Review of Systems All systems reviewed & are unremarkable except as noted in HPI and bel - Neurologic Reports system reviewed and no additional complaints, except as documented PMFSH Medical History: Medical History (Last Updated 09/22/21 @ 16:03 by Apurva Johnson PA-C) Adenomatous colon polyp Aortic stenosis Echocardiogram 07/2021: EF 60 65%, moderate LVH, diastolic dysfunction, moderate to severe mitral valve regurgitation, mild to moderate aortic stenosis, mean gradient 17, aortic valve area 1.5 cm, moderate AI, mild TR, RVSP 46 BPH (benign prostatic hyperplasia) CAD (coronary artery disease) Depression History of bladder cancer HLD (hyperlipidemia) HTN (hypertension) Multiple myeloma TIA (transient ischemic attack) Onset Date: ~2015 Remains on dual anti-platelet therapy. Surgical History: Surgical History (Last Updated 09/20/21 @ 21:04 by Radhika Villela DO) H/O colonoscopy with polypectomy Onset Date: 06/2020 Tubular adenoma History of penile implant History of prostate surgery Onset Date: 05/2019 Urolift for BPH performed by Dr. Valencia Hx of CABG Onset Date: ~2010 Two vessel after stent failure S/P primary angioplasty with coronary stent Family History: Family History (Last Reviewed 09/20/21 @ 21:08 by Radhika Villela DO) Father Family history of malignant neoplasm Cirrhosis Mother Carcinoma of colon Family history of malignant neoplasm - Social History Social History: Social History (Last Reviewed 09/20/21 @ 21:08 by Radhika Villela DO) Gender Identity: Gender identity (if verbalized by the patient): Male Alcohol Use: Alcohol intake: never Substance Use: Substance use: never Substance use type: does not use Others: Spiritual care concerns: No Smoking Status: Smoking status: Never smoker Tobacco type: cigarettes Second hand tobacco smoke exposure: No Smoking end date: 06/26/71 Smoking Pack-years: Smoking packs per day: 1 Smoking cigarettes per day: 20.0 Years smoked: 13 Smoking pack-years: 13.00 Meds Home Medications Medication Instructions Recorded Confirmed Type finasteride 5 mg PO DAILY 05/22/19 09/20/21 History tamsulosin 0.4 mg PO HS 05/22/19 09/20/21 History metoprolol tartrate 12.5 mg PO DAILY 09/16/21 09/20/21 History polyethylene glycol 3350 [Miralax] 17 g PO DAILY #119 g 09/16/21 09/20/21 Rx Allergies Allergy/AdvReac Type Severity Reaction Status Date / Time atorvastatin Allergy Unknown Muscle Pain Verified 09/20/21 20:13 azithromycin Allergy Unknown Rash Verified 09/20/21 20:13 doxycycline Allergy Unknown Rash Verified 09/20/21 20:13 pravastatin Allergy Unknown Muscle Pain Verified 09/20/21 20:13 rosuvastatin Allergy Unknown Muscle Pain Verified 09/20/21 20:13 [id number] Reductase Allergy Unknown Muscle Pain Verified 09/20/21 20:13 Inhibitor [[id number] Redu
--- NOTE | 2021-09-28 13:19 | PCPTNOTE ---
Attempted to see patient for PT at this time, however patient declined due to not feeling well and anticipating having to leave room soon for testing.
[2021-09-28] MEDS: POTASSIUM CHLORIDE 20 MEQ TABLET 40 MEQ PO (15:10)
[2021-09-28] MEDS: TAMSULOSIN HCL 0.4 MG CAPSULE PO (19:55)
[2021-09-29 03:27] VITALS: BP 104/50; PULSE 92; RESP 17; TEMP 36.8; O2SAT 100
[2021-09-29 05:46] LABS: Basophils Percent Auto 0.3 % (0.2-1.2); Eosinophils Percent Auto 0.4 % (0-4.4); Hematocrit 34.4 % (42.0-52.0); Hemoglobin 11.6 g/dL (14.0-18.0); Immature Granulocyte Absolute 0.07 K/mm3 (0.00-0.031); Immature Granulocyte Percent A 0.6 % (0-0.5); Lymphocytes Absolute Auto 1.18 K/mm3 (0.9-3.2); Lymphocytes Percent Auto 10.5 % (18.3-44.2); Mean Corpuscular HGB Conc 33.7 g/dl (32-36); Mean Corpuscular Hemoglobin 32.9 pg (26-34); Mean Corpuscular Volume 97.5 fl (80-100); Monocytes Absolute Auto 1.3 K/mm3 (0.1-0.6); Monocytes Percent Auto 11.2 % (2.6-8.5); Neutrophils Absolute Auto 8.7 K/mm3 (1.3-6.7); Platelet Count Result 276 k/mm3 (150-375); Red Blood Count 3.53 M/mm3 (4.6-6.20); Red Cell Distribution Width 12.6 % (11.5-14.5); White Blood Count 11.3 K/mm3 (4.5-10.0)
[2021-09-29 05:55] LABS: Alanine Aminotransferase 27 U/L (4-50); Alkaline Phosphatase 73 U/L (38-126); Anion Gap 6 mmol/L (8-16); Aspartate Amino Transferase 45 U/L (17-59); Blood Urea Nitrogen 37 mg/dL (9-20); Calcium 9.9 mg/dL (8.4-10.2); Carbon Dioxide 35 mmol/L (22-30); Chloride 91 mmol/L (98-107); Estimated CRCL calculation 42 ml/min; Estimated Glomerular Filt Rate 49; Glucose 98 mg/dL (65-110); Magnesium 2.1 mg/dL (1.6-2.3); Potassium 3.4 mmol/L (3.4-5.0); Sodium 132 mmol/L (137-145)
[2021-09-29] MEDS: AMPICILLIN TRIHYDRATE 500 MG CAPSULE PO (05:58)
--- NOTE | 2021-09-29 07:19 | P.DS_ITS ---
DS: Admitting Diagnosis Discharge Date 09/29/2021 Admitting Diagnosis 1) Ileus 2) Constipation 3) Multiple Myeloma DS: Discharge Diagnosis Discharge Diagnosis (1) Ileus: Code(s): K56.7 - Ileus, unspecified Status: Resolved Assessment and Plan: Patient with persistent constipation resulting in ileus * Patient has had 2-3 small stools following intervention but no significant bowel movement * Repeat KUB today showed nonobstructive bowel gas pattern was several persistent mildly dilated loops of air-filled small bowel consistent with ileus * Continue with MiraLax b.i.d. and Colace BID * Continue Dulcolax suppository qAM * Patient had symptomatic improvement following fleets enema yesterday * He is tolerating a regular diet with dietary supplements. Denies pain or bloating * Encourage increased ambulation though patient has been feeling weak and decreased motivation for continued activity. Orders to be out of bed with meals and walk in hallways. Ambulation encouraged extensively * RESOLVED as of 09/26/2021. Pt. with 2 BM's in past 24 hours, and active Bowel sounds in all 4 quads. * 4/5: bowel sounds active in all 4 quadrants, and negative abdominal exam. No current concern for ileus * 09/29/2021: Having BM's and passing gas without difficulty. Does still occasionally have some abdominal bloating and states the Simethicone helps with that. (2) Constipation: Qualifiers: Constipation type: unspecified constipation type Qualified Code(s): K59.00 - Constipation, unspecified Code(s): K59.00 - Constipation, unspecified Status: Resolved Assessment and Plan: RESOLVED - 09/28 & 09/29: Stooling without difficulty (3) Multiple myeloma: Qualifiers: Multiple myeloma remission status: not in remission Qualified Code(s): C90.00 - Multiple myeloma not having achieved remission Code(s): C90.00 - Multiple myeloma not having achieved remission Status: Acute Assessment and Plan: - Patient noted to have bone mass and working diagnosis is multiple my eloma. He is aware that he has to have his strength back in order to undergo testing and possible treatment. * He has been seen by Oncology and is awaiting a bone biopsy * He has generalized weakness and weight loss likely related to this new diagnosis * Appreciate PT and OT evaluation, as pt is very weak and according to their notes he has good days and bad days with endurance, but he has not been able to ambulate outside of his room in the halls due to his level of weakness. * May benefit from home health vs placement for rehab at discharge. * Pt. has oncologist already for which he will follow up with at discharge. * Dr. Morelos consulted on pt. yesterday and the patient will have a Bone Marrow Biopsy today prior to discharge. (4) Hypoxia: Code(s): R09.02 - Hypoxemia Status: Acute Assessment and Plan: Patient noted to be hypoxic down to 79-80% on 09/22 although no documented episodes of hypoxia * O2 sats normalized with 2 L supplemental O2 * Patient was weaned to room air but now is currently requiring 1 L supplemental O2 * RN noted that he is having desats when asleep in the 80s. Will proceed with apnea link tonight * Apnealink was not performed overnight and it is unclear as to why. It is to be performed tonight. * 09/24: Apnealink results show that he had 359 desaturations overnight, as low as 65%. I question whether or not this is contributing to the cause of the patient's overall fatigue. If so, it will need to be corrected to ensure he has
--- NOTE | 2021-09-29 07:19 | PM.DS ---
DS: Admitting Diagnosis Discharge Date 09/29/2021 Admitting Diagnosis 1) Ileus 2) Constipation 3) Multiple Myeloma DS: Discharge Diagnosis Discharge Diagnosis (1) Ileus: Code(s): K56.7 - Ileus, unspecified Status: Resolved Assessment and Plan: Patient with persistent constipation resulting in ileus Patient has had 2-3 small stools following intervention but no significant bowel movement Repeat KUB today showed nonobstructive bowel gas pattern was several persistent mildly dilated loops of air-filled small bowel consistent with ileus Continue with MiraLax b.i.d. and Colace BID Continue Dulcolax suppository qAM Patient had symptomatic improvement following fleets enema yesterday He is tolerating a regular diet with dietary supplements. Denies pain or bloating Encourage increased ambulation though patient has been feeling weak and decreased motivation for continued activity. Orders to be out of bed with meals and walk in hallways. Ambulation encouraged extensively RESOLVED as of 09/26/2021. Pt. with 2 BM's in past 24 hours, and active Bowel sounds in all 4 quads. 09/28: bowel sounds active in all 4 quadrants, and negative abdominal exam. No current concern for ileus 09/29/2021: Having BM's and passing gas without difficulty. Does still occasionally have some abdominal bloating and states the Simethicone helps with that. (2) Constipation: Qualifiers: Constipation type: unspecified constipation type Qualified Code(s): K59.00 - Constipation, unspecified Code(s): K59.00 - Constipation, unspecified Status: Resolved Assessment and Plan: RESOLVED - 09/28 & 09/29: Stooling without difficulty (3) Multiple myeloma: Qualifiers: Multiple myeloma remission status: not in remission Qualified Code(s): C90.00 - Multiple myeloma not having achieved remission Code(s): C90.00 - Multiple myeloma not having achieved remission Status: Acute Assessment and Plan: - Patient noted to have bone mass and working diagnosis is multiple myeloma. He is aware that he has to have his strength back in order to undergo testing and possible treatment. He has been seen by Oncology and is awaiting a bone biopsy He has generalized weakness and weight loss likely related to this new diagnosis Appreciate PT and OT evaluation, as pt is very weak and according to their notes he has good days and bad days with endurance, but he has not been able to ambulate outside of his room in the halls due to his level of weakness. May benefit from home health vs placement for rehab at discharge. Pt. has oncologist already for which he will follow up with at discharge. Dr. Morelos consulted on pt. yesterday and the patient will have a Bone Marrow Biopsy today prior to discharge. (4) Hypoxia: Code(s): R09.02 - Hypoxemia Status: Acute Assessment and Plan: Patient noted to be hypoxic down to 79-80% on 09/22 although no documented episodes of hypoxia O2 sats normalized with 2 L supplemental O2 Patient was weaned to room air but now is currently requiring 1 L supplemental O2 RN noted that he is having desats when asleep in the 80s. Will proceed with apnea link tonight Apnealink was not performed overnight and it is unclear as to why. It is to be performed tonight. 09/24: Apnealink results show that he had 359 desaturations overnight, as low as 65%. I question whether or not this is contributing to the cause of the patient's overall fatigue. If so, it will need to be corrected to ensure he has adequate endurance for treatment of potential Multiple Myeloma. He will need CPAP to aid in his therapy. Pulmonology to be consulted and the pt. will need oxygen at night to maintain his saturations. Pt. with abnormal CT scan showing developing infiltrates. Rocephin and Levaquin added as pt. has an allergy to Azithromycin. Per Dr. Sahu, pt. will have an ABG on room air today and a repeat Apnea l
[2021-09-29] MEDS: FLUTICASONE PROPIONATE 0.05% NA SPR 16 GM BTL (*BKC) 1 SPRAY NASAL (08:16)
[2021-09-29 08:26] VITALS: PULSE 90
[2021-09-29] MEDS: METOPROLOL TARTRATE 12.5 MG TABLET PO (08:26)
[2021-09-29] MEDS: SIMETHICONE 125 MG CHEW TAB PO ×2 (08:26→13:27)
[2021-09-29] MEDS: FUROSEMIDE INJ 40 MG/4 ML VIAL IV PUSH (08:26)
[2021-09-29] MEDS: FAMOTIDINE 20 MG TABLET PO (08:26)
[2021-09-29 08:30] VITALS: RESP 17; O2SAT 100
--- NOTE | 2021-09-29 09:58 | PCPTNOTE ---
The patient treatment was not able to be completed due to pt stating that he doesn't feel well and it going down for a biopsy sometime today. Will plan to continue treatment per plan of care.
--- NOTE | 2021-09-29 10:42 | WPDMODSED ---
Moderate Sedation Note-Pt Data Patient Data Diagnosis: Multiple myeloma Present Complaint: Multiple myeloma Procedure to be performed/Plan: Fluoro-guided bone marrow biopsy. Allergies Allergy/AdvReac Type Severity Reaction Status Date / Time atorvastatin Allergy Unknown Muscle Pain Verified 09/20/21 20:13 azithromycin Allergy Unknown Rash Verified 09/20/21 20:13 doxycycline Allergy Unknown Rash Verified 09/20/21 20:13 pravastatin Allergy Unknown Muscle Pain Verified 09/20/21 20:13 rosuvastatin Allergy Unknown Muscle Pain Verified 09/20/21 20:13 Rfdxric-VYQ-YwK Reductase Allergy Unknown Muscle Pain Verified 09/20/21 20:13 Inhibitor [Huamysd-Cqv-Irm Reductase Inhibitor] tetracycline Allergy Unknown Rash Verified 09/20/21 20:13 shellfish derived Allergy Itching Verified 09/20/21 20:13 oxycodone AdvReac Unknown Hallucinati Verified 09/20/21 20:13 ng Home Medications Medication Instructions Recorded Confirmed Type finasteride 5 mg PO DAILY 05/22/19 09/20/21 History tamsulosin 0.4 mg PO HS 05/22/19 09/20/21 History metoprolol tartrate 12.5 mg PO DAILY 09/16/21 09/20/21 History polyethylene glycol 3350 [Miralax] 17 g PO DAILY #119 g 09/16/21 09/20/21 Rx albuterol sulfate [ProAir HFA] 2 puff INHALATION QID PRN #8.5 g 09/29/21 Rx ampicillin 500 mg PO Q6H #28 cap 09/29/21 Rx levofloxacin 750 mg PO DAILY #4 tablet 09/29/21 Rx Current Medications: Active Medications Albuterol (Albuterol Sulfate Neb 2.5 Mg/3 Ml Inh) 2.5 mg INHALATION Q4HR PRN PRN Reason: Dyspnea Ampicillin (Ampicillin Trihydrate 500 Mg Capsule) 500 mg PO ACHS DIMITRY Last Admin: 09/29/21 05:58 Dose: 500 mg Documented by: Bisacodyl (Bisacodyl 10 Mg Suppository) 10 mg RECTAL QAM PRN PRN Reason: Constipation Last Admin: 09/24/21 08:23 Dose: 10 mg Documented by: Calcium Carbonate (Calcium Carbonate (Tums) 500 Mg (200 Mg Elemental)) 400 mg PO Q4HR PRN PRN Reason: Indigestion Last Admin: 09/28/21 03:56 Dose: 400 mg Documented by: Docusate Sodium (Docusate Sodium 100 Mg Capsule) 100 mg PO Q12HR [facility] Last Admin: 09/29/21 08:15 Dose: Not Given Documented by: Enoxaparin Sodium (Enoxaparin 40 Mg/0.4 Ml Syringe) 40 mg SUB-Q DAILY [facility] Last Admin: 09/29/21 08:22 Dose: Not Given Documented by: Famotidine (Famotidine 20 Mg Tablet) 20 mg PO Q12HR [facility] Last Admin: 09/29/21 08:26 Dose: 20 mg Documented by: Finasteride (Finasteride 5 Mg Tablet) 5 mg PO DAILY [facility] Last Admin: 09/29/21 08:16 Dose: Not Given Documented by: Fluticasone Propionate (Fluticasone Propionate 0.05% Na Spr 16 Gm Btl (*Bkc)) 1 spray NASAL Q12HR [facility] Last Admin: 09/29/21 08:16 Dose: 1 spray Documented by: Furosemide (Furosemide Inj 40 Mg/4 Ml Vial) 40 mg IV PUSH DAILY [facility] Last Admin: 09/29/21 08:26 Dose: 40 mg Documented by: Guaifenesin (Guaifenesin 12 Hr 600 Mg Tabcr) 600 mg PO Q12HR [facility] Last Admin: 09/29/21 08:18 Dose: Not Given Documented by: Ceftriaxone Sodium/Dextrose (Rocephin 1 Gm/D5w 50 Ml) 1 gm in 50 mls @ 100 mls/hr IVPB Q24H [facility] Last Infusion: 09/28/21 12:18 Dose: Infused Documented by: Levofloxacin/Dextrose (Levaquin 750 Mg/D5w 150 Ml) 750 mg in 150 mls @ 100 mls/hr IVPB Q24H [facility] Last Infusion: 09/29/21 09:52 Dose: Infused Documented by: Melatonin (Melatonin 5 Mg Tablet) 5 mg PO HS [facility] Last Admin: 09/28/21 19:57 Dose: Not Given Documented by: Metoprolol Tartrate (Metoprolol Tartrate 12.5 Mg Tablet) 12.5 mg PO DAILY [facility] Last Admin: 09/29/21 08:26 Dose: 12.5 mg Documented by: Neomycin/Polymyxin/Bacitracin (Neomycin/Polymyxin/Bacitracin Ointment 15 Gm Tube) 1 applic TOPICAL PRN PRN PRN Reason: with dressing changes Ondansetron HCl (Ondansetron Inj 4 Mg/2 Ml Vial) 4 mg IV PUSH Q6H PRN PRN Reason: Nausea And Vomiting Last Admin: 09/24/21 12:34 Dose: 4 mg Documented by: Perflutren Lipid Microsphere (Perflutren Lipid Microspheres 1.5 Ml Vial Diluted To 10 Ml Total Volume) 0 ml IV PUSH ONCE PRN; Protocol PRN Reason: a
[2021-09-29 12:41] VITALS: BP 115/70; PULSE 95; RESP 20; O2SAT 99
[2021-09-29 12:57] VITALS: BP 113/67; PULSE 95; RESP 20; O2SAT 99
--- NOTE | 2021-09-29 13:28 | PCPTNOTE ---
The patient treatment was not able to be completed due to patient having just got back from a bone marrow biopsy. The pt has to lay on his back for an hour per RN. Will plan to continue treatment per plan of care.
[2021-09-29 14:15] VITALS: BP 97/54; PULSE 92; RESP 18; TEMP 36.7; O2SAT 91
[2021-09-29 14:15] LABS: EDCOVIDSCREEN Negative (Negative)
[2021-09-29 18:10] LABS: Pneumococcal Antigen Urine Not Detected (Not Detected)
--- NOTE | 2021-10-05 07:36 | PC.NURSE ---
Urine pneumococcal Ag is negative.
== END 2021-09-29 15:23 | DRG 388 ==
LOC: ANHED 18:21 → ANH2MED 18:53
PROVIDERS: Internal Medicine Pulmonary Disease; Physician Assistant; Radiology Diagnostic Radiology; Admitting Provider Internal Medicine; Emergency Provider Emergency Medicine; PCP Internal Medicine Geriatric Medicine; Referring Provider Internal Medicine Hematology & Oncology; Visit Provider Nurse Practitioner Adult Health
PROC: 07DR3ZX Extraction of Iliac Bone Marrow, Percutaneous Approach, Diagnostic (ICD-10-PCS; principal; 2021-09-29 12:00)
DX: K56.7 Ileus, unspecified (principal); J18.9 Pneumonia, unspecified organism; J81.0 Acute pulmonary edema; C90.00 Multiple myeloma not having achieved remission; J90 Pleural effusion, not elsewhere classified; J81.1 Chronic pulmonary edema; N39.0 Urinary tract infection, site not specified; N17.9 Acute kidney failure, unspecified; Z20.822 Contact with and (suspected) exposure to COVID-19; N40.0 Benign prostatic hyperplasia without lower urinary tract symptoms; I25.10 Atherosclerotic heart disease of native coronary artery without angina pectoris; F32.9 Major depressive disorder, single episode, unspecified; Z85.51 Personal history of malignant neoplasm of bladder; E78.5 Hyperlipidemia, unspecified; I10 Essential (primary) hypertension; Z86.73 Personal history of transient ischemic attack (TIA), and cerebral infarction without residual deficits; I77.1 Stricture of artery; Z79.899 Other long term (current) drug therapy; Z80.0 Family history of malignant neoplasm of digestive organs; Z95.5 Presence of coronary angioplasty implant and graft; Z95.1 Presence of aortocoronary bypass graft; R09.02 Hypoxemia; R13.10 Dysphagia, unspecified; G47.34 Idiopathic sleep related nonobstructive alveolar hypoventilation
CPT/HCPCS: 36415; 36600; 38222; 71046; 71250; 71260; 74018; 74177; 80048; 80053; 82805; 83735; 83880; 84439; 84443; 85014; 85018; 85025; 85027; 87070; 87081; 87205; 87426; 87899; 88184; 88185; 88305; 88311; 88313; 88360; 92610; 93005; 94640; 94762; 96360; 96361; 96372; 97110; 97116; 97161; 97530; 99285; A9270; C9803; G0378; J0696; J1642; J1650; J1940; J1956; J2250; J2310; J2405; J3010; J7030; J7040; Q9967

== ENCOUNTER 2021-10-05 09:12 | Inpatient (IN) | payer MEDICARE, BC, SELFPAY ==
[2021-10-05] VITALS (27 sets, daily range): BP systolic 96–107; BP diastolic 56–68; PULSE 76–90; RESP 15–35; TEMP 36.1; O2SAT 91–100; BMI 25.7
--- NOTE | ~2021-10-05 | XR_ITS ---
EXAMINATION: XR chest 1V portable Exam Date/Time: 10/06/2021 22:23 CDT CLINICAL HISTORY: hypoxia Comparison: 10/05/2021. RESULT: Lines, tubes, and devices: Intact sternotomy wires. Cholecystectomy clips.. Lungs and pleura: Similar hazy perihilar opacities. Increased left angle blunting. Indistinct vessel margins. Cardiomediastinal silhouette: Stable cardiomediastinal silhouette. Dilated azygos vein. Other: No acute osseous or upper abdominal finding. IMPRESSION: Pulmonary findings most likely representing pulmonary edema with a small left pleural effusion. Infec tion is not excluded. Reviewed, dictated and finalized at location K. IMPRESSION: Pulmonary findings most likely representing pulmonary edema with a small left p leural effusion. Infection is not excluded.
--- NOTE | ~2021-10-05 | XR_ITS ---
EXAMINATION: XR barium swallow modified DATE: 10/06/2021 15:13 INDICATION: Dysphagia TECHNIQUE: Modified barium esophagram was performed by myself to administered fluoroscopy, in conjun ction with speech pathologist who administered barium in varying consistencies as per speech patholog ist documentation. This was recorded on tape. A single fluoroscopic spot image was recorded. The DAP for this procedure was 0.924 Gycm2. Fluoroscopy exposure time was 1.7 minutes. FINDINGS: Oral stage: Reduced lingual movement. Pharyngeal phase: Reduced laryngeal elevation, reduced laryngeal adduction, reduced tongue base contr action, reduced laryngeal squeeze, severe vallecular and piriform sinus residue, pharyngeal wall resi due. Laryngeal penetration: Present. Aspiration: Present. Laryngeal sensitivity: Absent. IMPRESSION: Abnormal modified barium swallow. Please refer to speech pathologist findings and specifi c feeding recommendations. Reviewed, dictated and finalized at location A. IMPRESSION: Abnormal modified barium swallow. Please refer to speech pathologis t findings and specific feeding recommendations.
--- NOTE | ~2021-10-05 | US_ITS ---
EXAMINATION: US renal BI DATE: 10/06/2021 09:29 INDICATION: Renal failure. TECHNIQUE: Multiple ultrasound grayscale images of the kidneys were obtained. COMPARISON: CT abdomen and pelvis 09/12/2021 FINDINGS: The right kidney measures 9.2 x 5.2 x 4.5 cm. The left kidney measures 10.7 x 5.0 x 5.9 cm. The kidne ys demonstrate normal parenchymal echogenicity. There is no hydronephrosis. The bladder demonstrates a trabeculated wall with diverticula. IMPRESSION: 1. Normal kidneys. No hydronephrosis. Reviewed, dictated and finalized at location A.
--- NOTE | ~2021-10-05 | XR_ITS ---
EXAMINATION: XR chest 1V portable INDICATION: Cough, altered mental status TECHNIQUE: Portable AP chest at 1045 hours COMPARISON: 09/22/2021 FINDINGS: There are increasing airspace opacities of the mid and lower lung zones. A mild diffuse int erstitial pattern persists without significant change Small pleural effusions are present. Cardiomega ly is noted. There is no pneumothorax. Median sternotomy wires and mediastinal surgical clips are see n, likely from prior coronary artery bypass grafting. IMPRESSION: 1. Cardiomegaly with mild pulmonary edema. 2. Airspace opacities of the mid and lower lung zones, consistent with atelectasis versus pneumonia. 3. Small pleural effusions. Reviewed, dictated and finalized at location A. IMPRESSION: 1. Cardiomegaly with mild pulmonary edema. 2. Airspace opacities of the mid and lower lung zones, consistent with atelecta sis versus pneumonia. 3. Small pleural effusions.
--- NOTE | ~2021-10-05 | CT_ITS ---
EXAMINATION: CT brain wo con INDICATION: Confusion, transient alteration of awareness COMPARISON: None TECHNIQUE: Standard unenhanced head CT. The dose-length product (DLP) was 681.00 mGy-cm. The mA was a djusted according to patient size. Iterative reconstruction technique was employed. FINDINGS: There is no acute intraparenchymal hemorrhage. No evidence of mass lesion. No evidence of a cute infarction. There is mild periventricular and subcortical hypodensity probably related to small vessel ischemic disease. There is mild prominence of the sulci and ventricles related to cerebral atr ophy. Intracranial calcified cerebral atherosclerosis is noted. There are no extra-axial collections. There is no mass effect or midline shift. Changes in the globes are likely from ocular lens surgery. The visualized sinuses and mastoid air cells are well aerated. IMPRESSION: 1. No acute intracranial abnormality. 2. Age related findings. Reviewed, dictated and finalized at location A.
--- NOTE | ~2021-10-05 | US_ITS ---
EXAMINATION: US carotid duplex BI EXAM DATE: 10/06/2021 17:57 INDICATION: Altered mental status. TECHNIQUE: Grayscale, color and pulsed Doppler images of the cervical carotid arteries were obtained . The degree of vessel stenosis is placed in one of the following categories: normal, <50% stenosis, 50-69% stenosis, >=70% stenosis but less than near-occlusion, near-occlusion, or occlusion. Note that percent stenosis relative to normal distal artery lumen diameter is indirectly measured from velocit y measurements as described by Amanuel, et al. Radiology 2003; 229:340-346. There is no prior study fo r comparison. FINDINGS: RIGHT SIDE: Right common carotid artery peak systolic velocity (PSV in cm/s): 78 Right bulb/internal carotid artery peak systolic velocity (PSV in cm/s): 81 Right internal carotid artery end diastolic velocity (EDV in cm/s): 21 Right ICA/CCA peak systolic ratio: 1.0 Right external carotid artery peak systolic velocity (PSV in cm/s): 106 Right vertebral artery antegrade flow: yes There is mild carotid bulb plaque. Velocity and Doppler waveforms in the common and internal carotid arteries is normal. LEFT SIDE: Left common carotid artery peak systolic velocity (PSV in cm/s): 78 Left bulb/internal carotid artery peak systolic velocity (PSV in cm/s): 102 Left internal carotid artery end diastolic velocity (EDV in cm/s): 25 Left ICA/CCA peak systolic ratio: 1.3 Left external carotid artery peak systolic velocity (PSV in cm/s): 57 Left vertebral artery antegrade flow: yes There is mild carotid bulb plaque. Velocity and Doppler waveforms in the common and internal carotid arteries is normal. IMPRESSION: 1. Less than 50 percent stenosis in the right internal carotid artery. 2. Less than 50 percent stenosis in the left internal carotid artery. Reviewed, dictated and finalized at location B.
--- NOTE | 2021-10-05 09:21 | ECG_ITS ---
Measurements Intervals [place] Rate: 86 P: 3 NH: 228 QRS: -60 QRSD: 130 T: 113 QT: 375 QTc: 449 Interpretive Statements SINUS RHYTHM WITH FIRST DEGREE AV BLOCK LEFT ANTERIOR FASCICULAR BLOCK POSSIBLE ANTERIOR MYOCARDIAL INFARCTION , OF INDETERMINATE AGE T-WAVE ABNORMALITY, CONSIDER LATERAL ISCHEMIA Electronically Signed On 10-05-2021 9:58:09 CDT by Dante Berg M.D.
[2021-10-05 09:23] LABS: Glucose Point of Care 122 mg/dl (65-105)
[2021-10-05 09:32] LABS: Basophils Percent Auto 0.3 % (0.2-1.2); Hematocrit 35.5 % (42.0-52.0); Hemoglobin 11.6 g/dL (14.0-18.0); Immature Granulocyte Absolute 0.11 K/mm3 (0.00-0.031); Lymphocytes Absolute Auto 0.58 K/mm3 (0.9-3.2); Lymphocytes Percent Auto 5.4 % (18.3-44.2); Mean Corpuscular HGB Conc 32.7 g/dl (32-36); Mean Corpuscular Hemoglobin 33.4 pg (26-34); Mean Corpuscular Volume 102.3 fl (80-100); Mean Platelet Volume 10.3 fl (7.4-10.4); Monocytes Absolute Auto 1.4 K/mm3 (0.1-0.6); Neutrophils Absolute Auto 8.6 K/mm3 (1.3-6.7); Neutrophils Percent Auto 80.3 % (45.5-73.1); Platelet Count Result 226 k/mm3 (150-375); Red Blood Count 3.47 M/mm3 (4.6-6.20); Red Cell Distribution Width 13.2 % (11.5-14.5); White Blood Count 10.7 K/mm3 (4.5-10.0)
[2021-10-05 09:41] LABS: Alanine Aminotransferase 33 U/L (4-50); Alkaline Phosphatase 60 U/L (38-126); Anion Gap 7 mmol/L (8-16); Aspartate Amino Transferase 51 U/L (17-59); Bilirubin,Total 1.5 mg/dL (0.2-1.3); Blood Urea Nitrogen 82 mg/dL (9-20); Calcium 9.7 mg/dL (8.4-10.2); Carbon Dioxide 31 mmol/L (22-30); Chloride 91 mmol/L (98-107); Estimated CRCL calculation 33 ml/min; Estimated Glomerular Filt Rate 37; Glucose 123 mg/dL (65-110); Potassium 4.7 mmol/L (3.4-5.0); Sodium 129 mmol/L (137-145)
[2021-10-05 09:42] LABS: INR 1.3; Prothrombin Time 15.4 Seconds (11.1-14.7)
[2021-10-05 09:43] LABS: Partial Thromboplastin Time 27.6 SECONDS (22.3-36.8)
--- NOTE | 2021-10-05 09:56 | ED.AMS ---
HPI - Altered Mental Status General Chief Complaint: Altered Mental Status Stated Complaint: AMS Time Seen by Provider: 10/05/21 09:22 Source: EMS Mode of arrival: EMS Limitations: altered mental status History of Present Illness HPI narrative: Pt reportedly confused with decreased responsiveness this morning. Currently patient is alert and appropriate and answering questions. Pt admits to a cough but denies fever. Pt says he feels generally weak. Pt denies HOOPER. Pt denies dysuria or frequency. MD complaint: altered mental status Severity: mild Consistency of symptoms: waxing and waning Associated symptoms: cough Related Data Home Medications Medication Instructions Recorded Confirmed finasteride 5 mg PO DAILY 05/22/19 09/20/21 tamsulosin 0.4 mg PO HS 05/22/19 09/20/21 metoprolol tartrate 12.5 mg PO DAILY 09/16/21 09/20/21 Allergies Allergy/AdvReac Type Severity Reaction Status Date / Time atorvastatin Allergy Unknown Muscle Pain Verified 09/20/21 20:13 azithromycin Allergy Unknown Rash Verified 09/20/21 20:13 doxycycline Allergy Unknown Rash Verified 09/20/21 20:13 pravastatin Allergy Unknown Muscle Pain Verified 09/20/21 20:13 rosuvastatin Allergy Unknown Muscle Pain Verified 09/20/21 20:13 Tlpxnab-OCE-BbV Reductase Allergy Unknown Muscle Pain Verified 09/20/21 20:13 Inhibitor [Clwdwln-Mmm-Skz Reductase Inhibitor] tetracycline Allergy Unknown Rash Verified 09/20/21 20:13 shellfish derived Allergy Itching Verified 09/20/21 20:13 oxycodone AdvReac Unknown Hallucinati Verified 09/20/21 20:13 ng Review of Systems Review of Systems: All systems reviewed & are unremarkable except as noted in HPI and below PMFSH Past Medical History Medical History Adenomatous colon polyp Aortic stenosis Echocardiogram 07/2021: EF 60 65%, moderate LVH, diastolic dysfunction, moderate to severe mitral valve regurgitation, mild to moderate aortic stenosis, mean gradient 17, aortic valve area 1.5 cm, moderate AI, mild TR, RVSP 46 BPH (benign prostatic hyperplasia) CAD (coronary artery disease) Depression History of bladder cancer HLD (hyperlipidemia) HTN (hypertension) Multiple myeloma TIA (transient ischemic attack) (~2015) Remains on dual anti-platelet therapy. Surgical History Surgical History H/O colonoscopy with polypectomy (06/2020) Tubular adenoma History of penile implant History of prostate surgery (05/2019) Urolift for BPH performed by Dr. 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 Has 2 surviving sons, 2 daughters of Zyncd in 2020 and 2021. No alcohol or cigarettes since 1969. Smoking status: Never smoker Second hand tobacco smoke exposure: No Alcohol intake: never Substance use: never Substance use type: does not use Gender identity (if verbalized by the patient): Male Spiritual care concerns: No Exam Const: General: no acute distress Orientation/consciousness: patient oriented x3 HENMT: Head: normal to inspection Eyes: Conjunctivae: conjunctivae normal EOM: EOMs intact bilaterally Neck: Neck: normal visual inspection and no lymphadenopathy Resp: Effort & Inspection: normal respiratory effort Auscultation: clear to auscultation bilaterally Cardio: Rate: regular rate Rhythm: regular rhythm GI: GI Palp: Yes Soft to palpation Auscultation: normal bowel sounds Skin: General skin exam: normal color Rashes: no rashes Ne
[2021-10-05 10:09] LABS: Appearance Urine Clear (Clear); Bilirubin Urine 1+ (Negative); Blood Urine 2+ (Negative); Color Urine Yellow (Yellow); Glucose Urine UA Negative (Negative); Ketones Urine Negative (Negative); Leukocyte Esterase Ur Negative LEU/UL (Negative); Nitrate Urine Negative (Negative); Protein Urine 1+ mg/dL (Negative); Specific Grav Ur >= 1.030 (1.001-1.035); Urobilinogen Urine 0.2 mg/dL (<2.0)
[2021-10-05 10:18] LABS: Bacteria Urine Trace /hpf; Hyaline Casts Urine 20-29 /lpf; Mucus Urine Rare /lpf; Squamous Epithelial Cell Urine Rare /hpf (Few)
[2021-10-05 10:19] LABS: Add Urine Microscopic? YES
[2021-10-05 10:30] LABS: Lactic Acid Reflex 1.3 mmol/L (0.7-2.1)
[2021-10-05] MEDS: SODIUM CHLORIDE 0.9% IV 1,000 ML 200 ML IV CONT (12:07)
--- NOTE | 2021-10-05 13:28 | ADMGEN ---
This patient, Ron Hickey, was admitted to [facility] Surg Room 314-01 at 1310. Patient/family oriented to hospital policies and general routines including ID bracelet, bed and alarms, visiting hours, pain management, procedures, bathroom and other care routines, personal items, smoking policy, room service/diet, and visiting hours. Information on how to activate the Rapid Response Team has been discussed. Patient/Family are encouraged to report perceived risks to care and to ask questions if they do not understand what they are told or what they should do.
--- NOTE | 2021-10-05 13:45 | PM.IMHP ---
H&P: HPI History of Present Illness Date/Time: 10/05/21 13:45 Chief Complaint: Confused and less responsive. Narrative: This is a 81-year-old male with a fairly recent diagnosis of multiple myeloma, hypertension, coronary artery disease, aortic stenosis, nocturnal hypoxia, and benign prostatic hyperplasia who presented to the emergency department via EMS from [facility] for evaluation as staff at his care facility felt that he was confused and less responsive than normal. It is noted that he was recently hospitalized between 09/20/2021 and 09/29/2021 at which time he was admitted with an ileus due to constipation. He was also diagnosed with multiple myeloma during that stay and he had multiple desaturations at night time on apnea link for which he was prescribed nocturnal oxygen. In any event, the patient was brought in today as he was ?lethargic and slow to respond? and apparently confused. On EMS arrival and at the time my evaluation he is alert and oriented x4 however he speaks in a very soft voice though when asked to speak louder he is easy to understand. According to the nurse he has had some hallucinations and is heard talking in his room to people who were not there however this was not noted when I saw him. In any event, it sounds as though the symptoms just started today and the only complaint that the patient has is of mild lower abdominal discomfort as he feels he needs have a bowel movement reports not having 1 for couple of days. He is a bit tachypneic on exam and reports feeling slightly short of breath. During my evaluation he also falls asleep mid sentence and I witnessed a couple of apneic episodes as well. Chest x-ray done on arrival showed cardiomegaly with mild pulmonary edema in findings of atelectasis versus pneumonia as well as small pleural effusions. He has been afebrile since arrival and blood pressures have been stable on the low end of normal. Pertinent labs include a white blood cell count of 10.7, sodium 129, BUN 82, and a creatinine of 1.80. Due to his worsening renal function and lethargy, he is being admitted for further observation and workup. He has no complaints at this time however he is worried that he will not get his 2 mg of Xanax at bedtime. He denies fever, chills, sweats, headache, neck ache, sinus congestion, rhinorrhea, otalgia, odynophagia, chest pain, pleuritic pain, palpitations, shortness of breath, orthopnea, paroxysmal nocturnal dyspnea, lower extremity edema, nausea, vomiting, and dysuria. He has not had any recent falls and he denies vertigo, auditory visual changes, focal weakness, and paresthesias. No recent medication changes that he is aware of. He denies sick contacts. Review of Systems Review of Systems: Twelve systems were reviewed. Patient reports occasional midsternal chest discomfort but none at this time. Recently had an apnea link where he had over 400 desaturations throughout the night with an SpO2 as low as 65%. He is to have a formal outpatient sleep study at some point time. He does note feeling confused on occasion and has daytime somnolence. Triage nurse documented that the patient may have had suicidal comments at his extended care facility however he adamantly denies harmful thoughts. Specifically denies suicidal thoughts. Except as documented, all other systems were reviewed and are negative. [facility] Past Medical History Medical History (Updated 10/05/21 @ 23:32 by April Maldonado PA-C) Adenomatous colon polyp Aortic stenosis Echocardiogram 07/2021: EF 60 65%, moderate LVH, diastolic dysfunction, moderate to severe mitral valve regurgitation, mild to moderate aortic stenosis, mean gradient 17, aortic valve area 1.5 cm, moderate AI, mild TR, RVSP 46 Benign prostatic hyperplasia Bladder cancer Coronary artery disease Depression Hyperlipidemia Hypertension Multiple myeloma (08/2021) Shingles Transient ischemic attack (2016) Surgical History Surgical History (Updated 10/05/21 @ 14:04 b
[2021-10-05 23:53] LABS: Anion Gap 9 mmol/L (8-16); Blood Urea Nitrogen 92 mg/dL (9-20); Calcium 9.4 mg/dL (8.4-10.2); Carbon Dioxide 27 mmol/L (22-30); Chloride 94 mmol/L (98-107); Estimated CRCL calculation 31 ml/min; Estimated Glomerular Filt Rate 34; Glucose 111 mg/dL (65-110); Magnesium 2.4 mg/dL (1.6-2.3); Potassium 4.5 mmol/L (3.4-5.0); Sodium 130 mmol/L (137-145)
[2021-10-05 23:59] LABS: Alveolar/Arterial O2 Gradient 68.5 mmHg; Base Excess ABG 0.1 mEq/l (+/-2.0); Carboxyhemoglobin 0.3 % THb (0-2.0); Fractional Inspired Oxygen 32 %; HCO3 ABG 25.6 mEq/l (22.0-26.0); Methemoglobin ABG 0.3 %THb (0-1.5); Oxygen Content ABG 16.4 %vol (16.0-22.0); Oxygen Saturation ABG 97.8 % (95.0-100.0); Oxyhemoglobin 96.6 % THb (90.0-100.0); PCO2 ABG 44.9 mmHg (35.0-45.0); PO2 ABG 107.1 mmHg (80.0-100.0); PO2 FiO2 Ratio Arterial Blood 3.35 %; Reduced Hemoglobin 2.8 %THb (0-5.0); pH ABG 7.374 (7.350-7.450)
[2021-10-06] VITALS (7 sets, daily range): BP systolic 67–112; BP diastolic 55–64; PULSE 74–88; RESP 10–20; TEMP 36–36.3; O2SAT 94–98
[2021-10-06] LABS: Device NASAL CANNULA; Modified Allen's Test Pass; Site Drawn RIGHT RADIAL
[2021-10-06 00:26] LABS: NT Pro B Type Natriuretic Pept > 35000 pg/mL (5-100)
[2021-10-06 00:58] LABS: Folic Acid 15.6 ng/mL (2.76->20)
[2021-10-06] MEDS: TAMSULOSIN HCL 0.4 MG CAPSULE PO (01:00)
[2021-10-06] MEDS: SODIUM CHLORIDE 0.9% IV 1,000 ML 75 ML IV CONT (01:00)
[2021-10-06] MEDS: AMPICILLIN TRIHYDRATE 500 MG CAPSULE PO ×3 (01:00→13:10)
[2021-10-06 01:01] LABS: Free T4 Free Thyroxine Reflex 1.22 ng/dL (0.78-2.19)
[2021-10-06 01:41] LABS: Total Triiodothyronine (T3) 0.35 NG/ML (0.97-1.69)
--- NOTE | 2021-10-06 07:49 | PM.IMPN ---
Progress Note: A&P Assessment and Plan (1) Altered mental status: Qualifiers: Altered mental status type: disorientation Qualified Code(s): R41.0 - Disorientation, unspecified Code(s): R41.82 - Altered mental status, unspecified Status: Acute Assessment and Plan: Patient was reportedly brought in for confusion and lethargy. He is not confused at the time my evaluation though nurse has told me that he has been hallucinating, and speaking with people that are not present. With his recent apnea link in the fact that he fell asleep several times mid sentence during the interview, I am going to check an ABG. Brain CT, TSH, B12, have also been ordered to rule out other possible etiologies. His BUN and creatinine are elevated from baseline which could be causing confusion as well. He has some mild electrolyte derangements though calcium is well within normal limits. Head CT showed no acute concerns, age-related findings only. Renal ultrasound showed Normal kidneys. No hydronephrosis. PT and OT and speech therapy in place. Thyroid, vitamin B12, lactic, folate, ABG - all WNL. TSH 5.8, not currently on levothyroxine. Carotid Dopplers US ordered. (2) Renal failure: Code(s): N19 - Unspecified kidney failure Status: Acute Assessment and Plan: BUN and creatinine continue to rise from baseline and he does look dry on exam and thus he will be cautiously hydrated with close monitoring of volume status. Likely related to his difficulty staying hydrated independently as well as dysphagia difficulty swallowing and vocal cord concerns. Chest x-ray noted, which shows cardiomegaly with mild pulmonary edema and small pleural effusions with short noted on previous images. Renal ultrasound WNL given history of BPH, bladder scan to make sure he is not retaining urine. Monitor strict I/O. Will continue him on D5 normal saline at 100 mL an hour. Cautious as BNP greater than 35,000. His sodium was low, but improved today from 129 to 130 today. Creatinine is 1.9, potassium 4.5, WBC 10.7. Blood pressures are low with systolics in the 100s, no Lasix given at this time. Albumin was low at 2.7 in August and is now 3.0. No edema noted, no wheezing on lung auscultation. Echo today showed EF = 40-45%. Results discussed further below; grade 3 diastolic dysfunction. Renal ultrasound showed Normal kidneys. No hydronephrosis. (3) Generalized weakness: Code(s): R53.1 - Weakness Status: Acute Assessment and Plan: Multifactorial in etiology and due to a combination of the above and his chronic medical conditions. very talkative today, but his speech was very soft and at times without any volume at all Patient whispering, seemingly needing vocal cord strengthening. Failed his barium swallow study today on 10/06. ST /PT/ OT will continue to work with him. consult advanced nursing professor for possible NG tube feedings. very tall and thin patient and should not go without nutrition for long. need to be NPO status. recommend an NG placement for tube feedings and medication administration. Family wanting to speak to Oncologist Dr. Morelos today before deciding on NG tube. Will start on IV fluids at 100 mL an hour D5 with normal saline. Plan on Sunday 09/10 repeat modified Barium. (4) Hyponatremia: Code(s): E87.1 - Hypo-osmolality and hyponatremia Status: Acute Assessment and Plan: He appears dry on exam and is being cautiously hydrated as detailed above. Check urine sodium and urine and serum osmolalities. His sodium was low, but improved today from 129 to 130 today. Will start on IV fluids at 100 mL an hour D5 with normal saline. Son stated that patient had been progressively worsening over the last 1-3 weeks, and felt it was related to dehydration/low Na. Will continue him on D5 normal saline at 100 mL an hour. (5) Nocturnal hypoxia: Code(s): G47.34 - Idiopathic sleep related nonobstructiv
[2021-10-06] MEDS: guaiFENesin 600 MG/DEXTROMETHORPHAN 30 MG SR TAB 12 HR 2 TAB PO (08:12)
[2021-10-06] MEDS: polyethylene glycoL 3350 17 GM POWD.PACK PO (08:12)
[2021-10-06] MEDS: FINASTERIDE 5 MG TABLET PO (08:12)
[2021-10-06] MEDS: METOPROLOL TARTRATE 12.5 MG TABLET PO (08:13)
--- NOTE | 2021-10-06 10:40 | PCSTNOTE ---
Please refer to the Bedside Swallow Evaluation in the EMR. Please note, silent aspiration cannot be ruled out at bedside.
--- NOTE | 2021-10-06 15:16 | PC.NURSE ---
per Dena speech therapy, pt failed swallow study, recommend npo status RADIATION MONITOR Sheng informed.
--- NOTE | 2021-10-06 15:34 | PC.NURSE ---
informed Nena Patricio that family requesting oncology consult.
--- NOTE | 2021-10-06 15:41 | PCSTNOTE ---
Please refer to the Modified Barium Swallow Evaluation in the EMR.
[2021-10-06] MEDS: DEXTROSE 5%/0.9% SOD CHL 1,000 ML 100 ML IV CONT (16:01)
[2021-10-06] MEDS: PHARMACIST COMMUNICATION ORDER 1 EACH XX (16:01)
[2021-10-06 17:25] LABS: Creatinine Urine 147.8 mg/dL
[2021-10-06 17:37] LABS: Barbiturate Screen Urine Negative (Negative); Benzodiazepines Screen Urine Positive (Negative)
[2021-10-06 17:46] LABS: Amphetamine Screen Urine Negative (Negative); Cocaine Screen Urine Negative (Negative); Methadone Screen Urine Negative (Negative); Opiate Screen Urine Negative (Negative); Phencyclidine Screen Urine Negative (Negative)
--- NOTE | 2021-10-06 17:58 | PDONCCN ---
HPI - Date of Consult Date/Time: 10/06/21 17:58 Requesting Physician: Nena Paul NP Primary Care Provider: Vinny Blanton, MD - Consult Narrative Reason for consult: Multiple myeloma Narrative: Ron Hickey is a 81 year old male with recent diagnosis of multiple myeloma status post bone marrow biopsy done on September 29, 2021. He came into the hospital after being found less responsive and confused. Patient has multiple comorbidities including hypertension, coronary artery disease, aortic stenosis and BPH. He was brought into the hospital via EMS due to mental status changes. Chest x-ray showed airspace opacities in the mid and lower lung zone consistent with pneumonia. Perineum swallow was performed due to patient difficulty swallowing and weight loss that showed abnormal findings. Head CT was unremarkable. Patient has been eating poorly and continue to lose weight. Labs showed hemoglobin of 11.6. Creatinine was elevated at 1.9. Review of Systems - Review of Systems All systems reviewed & are unremarkable except as noted in HPI and bel - Neurologic Reports hearing normal, Reports abnormal speech, Reports confusion, Reports weakness, Denies headache(s), Denies focal weakness, Denies numbness, Denies seizure-like activity, Denies sensory deficit [facility] Medical History: Medical History (Last Updated 10/05/21 @ 14:08 by April Maldonado PA-C) Adenomatous colon polyp Aortic stenosis Echocardiogram 07/2021: EF 60 65%, moderate LVH, diastolic dysfunction, moderate to severe mitral valve regurgitation, mild to moderate aortic stenosis, mean gradient 17, aortic valve area 1.5 cm, moderate AI, mild TR, RVSP 46 Benign prostatic hyperplasia Bladder cancer Coronary artery disease Depression Hyperlipidemia Hypertension Multiple myeloma Onset Date: 08/2021 Shingles Transient ischemic attack Onset Date: 2015 Surgical History: Surgical History (Last Updated 10/05/21 @ 14:04 by April Maldonado PA-C) History of arthroscopy of right knee Onset Date: 1973 For meniscal tear. History of bilateral cataract extraction History of bladder surgery Onset Date: 2008 Transurethral resection bladder tumor. History of cholecystectomy History of colonoscopy with polypectomy Onset Date: 06/2020 Tubular adenoma. History of coronary angioplasty with insertion of stent History of penile implant History of prostate surgery Onset Date: 05/2019 Urolift for BPH performed by Dr. Valencia. History of repair of right rotator cuff History of two vessel coronary artery bypass graft Onset Date: 2010 Family History: Family History (Last Reviewed 10/05/21 @ 23:26 by April Maldonaod PA-C) Father Family history of malignant neoplasm Cirrhosis Mother Carcinoma of colon Family history of malignant neoplasm - Social History Social History: Social History (Last Updated 10/05/21 @ 23:26 by April Maldonado PA-C) Others: Spiritual care concerns: No Meds Home Medications Medication Instructions Recorded Confirmed Type finasteride 5 mg PO DAILY 05/22/19 10/05/21 History tamsulosin 0.4 mg PO HS 05/22/19 10/05/21 History metoprolol tartrate 12.5 mg PO DAILY 09/16/21 10/05/21 History polyethylene glycol 3350 [Miralax] 17 g PO DAILY #119 g 09/16/21 10/05/21 Rx albuterol sulfate [ProAir HFA] 2 puff INHALATION QID PRN #8.5 g 09/29/21 10/05/21 Rx ampicillin 500 mg PO Q6H #28 cap 09/29/21 10/05/21 Rx levofloxacin 750 mg PO DAILY #4 tablet 09/29/21 10/05/21 Rx alprazolam 0.5 mg PO HS PRN 10/05/21 10/05/21 History dextromethorphan-guaifenesin 1 tablet PO Q12H 10/05/21 10/05/21 History [Mucinex DM] trazodone 25 mg PO HS PRN 10/05/21 10/05/21 History Allergies Allergy/AdvReac Type Severity Reaction Status Date / Time atorvastatin Allergy Unknown Muscle Pain Verified 09/20/21 20:13 azithromycin Allergy Unknown Rash Verified 09/20/21 20:13 doxycycline Allergy Unknown Rash Verified 03
[2021-10-06 18:00] LABS: Cannabinoid Screen Urine Negative (Negative)
[2021-10-06 18:08] LABS: Glucose Point of Care 146 mg/dl (65-105)
[2021-10-06 18:17] LABS: Sodium Urine Random < 5 meq/L
--- NOTE | 2021-10-06 22:00 | PC.NURSE ---
Addendum entered by Pratibha Lemus RN 10/06/21 22:45: Rapid response called at 2201. Original Note: Pt unresponsive, opens eyes with sternal rub, eyes are glazed over, O2 sats are 80% on 2LNC, BP 94/58, breathing is shallow and irregular, rapid response called.
--- NOTE | 2021-10-06 22:10 | PC.NURSE ---
Kasey HICKMAN notified of condition, pt transferred to ICU 4 @ 2220. Dye Line Operator Rian and LABORER STORES Ben transported pt via bed.
--- NOTE | 2021-10-06 22:10 | PM.EVENT ---
Event Note Event Note Event Note: Rapid response called: 2201 Subjective: Patient not responding on tech rounds. Objective: Patient appears comfortable, looks like he is sleeping. Opens eyes to sternal rub. Squeezed hands on command. Tracked with eyes but did not speak. O2 in the upper 90s. No respiratory distress. Assessment: Decreased levels of responsiveness, concerns for CO2 retention. Plan: STAT ABG. EKG and labs ordered. Transfer to ICU for BiPAP or possible intubation.
[2021-10-06 22:21] LABS: Glucose Point of Care 203 mg/dl (65-105)
[2021-10-06 22:21] LABS: Alveolar/Arterial O2 Gradient 316.5 mmHg; Base Excess ABG -4.9 mEq/l (+/-2.0); Carboxyhemoglobin 0.3 % THb (0-2.0); Fractional Inspired Oxygen 90 %; Methemoglobin ABG 0.3 %THb (0-1.5); Oxygen Content ABG 17.2 %vol (16.0-22.0); Oxygen Saturation ABG 99.5 % (95.0-100.0); Oxyhemoglobin 97.9 % THb (90.0-100.0); PCO2 ABG 55.5 mmHg (35.0-45.0); PO2 ABG 268.3 mmHg (80.0-100.0); PO2 FiO2 Ratio Arterial Blood 2.98 %; Reduced Hemoglobin 1.5 %THb (0-5.0)
[2021-10-06 22:22] LABS: Device NON-REBREATHER MASK; Site Drawn LEFT BRACHIAL; pH ABG 7.236 (7.350-7.450)
--- NOTE | 2021-10-06 22:30 | PC.NURSE ---
pt transfered from [facility] [place] [facility] moved ti ICU bed and placed on monitor. O2 15lp via NRB. PT responsive to questions able to move arms but did not talk. as pt being set up on bipap increasing dysrythmias noted in including self limiting wide complex tachycardia 14-20 beats .while attempting to obtain EKG pulse went to 40s in junctional rythym no pulse noted. Pt was a no CPR PA Gearling at the bedside see code sheet.
[2021-10-06 22:31] LABS: Ammonia < 9 umol/L (9-30)
[2021-10-06 22:52] LABS: Alanine Aminotransferase 31 U/L (4-50); Albumin Level 2.8 g/dL (3.5-5.1); Alkaline Phosphatase 73 U/L (38-126); Anion Gap 10 mmol/L (8-16); Aspartate Amino Transferase 40 U/L (17-59); Bilirubin,Total 1.1 mg/dL (0.2-1.3); Blood Urea Nitrogen 106 mg/dL (9-20); Calcium 8.7 mg/dL (8.4-10.2); Carbon Dioxide 24 mmol/L (22-30); Chloride 94 mmol/L (98-107); Estimated CRCL calculation 24 ml/min; Estimated Glomerular Filt Rate 25; Glucose 189 mg/dL (65-110); Magnesium 2.6 mg/dL (1.6-2.3); Potassium 5.1 mmol/L (3.4-5.0); Sodium 128 mmol/L (137-145)
--- NOTE | 2021-10-06 23:00 | PM.DDS ---
Discharge Summary Date and Time Date of : 10/06/21 Time of : 22:32 Provider Pronounced By: char hooper Probable Cause of Probable Cause of : Acute kidney failure with uremia and recent multiple myeloma diagnosis. Summary Hospital Course: Mr. Hickey was admitted to the medical floor through the emergency department on 10/05/2021 after presenting with confusion and altered mental status. I did the patient's initial history and physical and at that time he was alert and oriented x4 though had periods of hallucinations, speaking with people who were not currently in the room. Aside from mild electrolyte derangements and mild increases in BUN and creatinine from baseline, the etiology of his reported altered mental status and confusion was not entirely clear. ABG on the evening of admission was within normal limits as well as his thyroid function, lactic acid level, and B12 and folates. A brain CT did not demonstrate any acute findings either. He was cautiously hydrated due to worsening renal function and his volume status was monitored closely due to mild pulmonary edema on chest x-ray. He was on 2 L nasal cannula at nighttime which was recommended during a previous admission as he had pretty significant nocturnal hypoxia. His oxygen requirement remained the same and he did not ever appear in respiratory distress. He did not do well with his swallow study with significant risk for aspiration and discussions were initiated today for possible NG tube placement for tube feedings and medication administration. The patient and family members wished to hold on making that decision pending consultation with Dr. Morelos (oncology) to help decide whether or not the patient would be able to tolerate treatment or would it be best to proceed with hospice. On floor rounds this evening the patient was not responding to staff and a rapid response was called. He appeared to be sleeping on arrival by the rapid response team and he did open his eyes with sternal rub. He followed some commands (squeeze my fingers) however he was not answering questions. Chart and code status was reviewed at that time and it had been documented that the patient was okay with intubation however did not want chest compressions. Given concerns for ineffective breathing, he was transferred to the ICU for possible BiPAP or even intubation. His ABG showed a pH of 7.236 and pCO2 of 55.5 and when he arrived in ICU he did open his eyes to name and was alert enough that we were going to start him on BiPAP. As we were in the process of getting him settled in bed and connected to the BiPAP, he began to have short runs of nonsustained ventricular tachycardia and within a minute or so he became bradycardic and unresponsive. Epinephrine was drawn up (chest compressions were not started due to the patient's wishes) and as that was being injected the patient went into asystole with no palpable pulse. He had a few agonal respirations thereafter and quickly and peacefully. Family members were called the time of the rapid response however they live many miles away and unfortunately did not make it to the hospital in time. Multiple staff members were at bedside with the patient when he passed. Additional Data Confirmation of as documented by pronouncing clinician: Pupillary Reflex, Palpable Pulses, Response to Stimuli, Heart Tones and Breath Sounds Name of Provider Notified: char hooper Time Provider Notified: 22:52 Provider Requests Autopsy: No Family Requests Autopsy: No Clay Mixer Notified: Yes Date [facility] Notified of : 10/06/21 Time [facility] Notified of : 23:03
--- NOTE | 2021-10-06 23:46 | ECHO_ITS ---
Patient Info Name: Ron Hickey Age: 81 years : 1940 Gender: Male Ht: 72 in Wt: 189 lbs BSA: 2.10 m2 HR: 76 bpm BP: 100 / 60 mmHg Heart Rhythm: Sinus Rhythm Technical Quality: Fair Exam Date: 10/06/2021 9:53 AM Exam Location: [facility] Patient Status: Outpatient Admit Date: 10/05/2021 Staff Ordering Physician: April Maldonado PA-C Or First Assist Registered Nurse: Shruthi Blank RDCS Attending Provider: Nena Paul NP Referring Physician: Erica ARCINIEGA; Exam Type: CA echo doppler color flow Study Info Indications - cardiomegaly Complete two-dimensional, color flow and Doppler transthoracic echocardiogram is performed. Summary 1. Complete two-dimensional, color flow and Doppler transthoracic echocardiogram is performed. 2. Left ventricular chamber dimension is mildly enlarged. 3. Left ventricular systolic function is moderately reduced, estimated at 40-45%. 4. There is moderately increased left ventricular wall thickness. 5. The left ventricular diastolic function is grade III diastolic dysfunction. 6. Right ventricular systolic function is reduced. 7. Right atrial chamber dimension is moderately enlarged. 8. There is severe aortic valve stenosis with a peak velocity of 306 cm/s, mean gradient of 22 mmHg, and aortic valve area of 0.9 cm2. 9. There is mild aortic valve regurgitation. 10. There is severe aortic valve calcification. 11. There is moderate mitral valve regurgitation. 12. There is mild tricuspid valve regurgitation. 13. Moderate pulmonary hypertension, estimated pulmonary arterial systolic pressure is 56 mmHg. Left Ventricle Left ventricular chamber dimension is mildly enlarged. Left ventricular systolic function is moderately reduced, estimated at 40-45%. There is moderately increased left ventricular wall thickness. The left ventricular diastolic function is grade III diastolic dysfunction. Right Ventricle Right ventricular chamber dimension is normal. Right ventricular systolic function is reduced. Left Atria Left atrial chamber dimension is severely enlarged. Right Atria Right atrial chamber dimension is moderately enlarged. Atrial Septum Intact interatrial septum visualized by color flow imaging. Aortic Valve The aortic valve is trileaflet. There is severe aortic valve stenosis with a peak velocity of 306 cm/s, mean gradient of 22 mmHg, and aortic valve area of 0.9 cm2. There is mild aortic valve regurgitation. There is severe aortic valve calcification. Pulmonic Valve The pulmonic valve is normal. There is no pulmonic valve stenosis. There is trace pulmonic regurgitation. Mitral Valve The mitral valve has thickened leaflets. There is no mitral valve stenosis. There is moderate mitral valve regurgitation. Tricuspid Valve The tricuspid valve leaflets are normal. There is no significant tricuspid valve stenosis. There is mild tricuspid valve regurgitation. Moderate pulmonary hypertension, estimated pulmonary arterial systolic pressure is 56 mmHg. Pericardium/Pleural The pericardium appears normal. There is no pericardial effusion. Aorta The aortic root size at the sinus of Valsalva is normal. Left Ventricular Outflow Tract Name Value Normal LVOT 2D
== END 2021-10-06 22:32 | disposition expired | DRG 683 ==
LOC: ANHED 09:49 → ANH3MEDSUR 12:13 → ANHICU 10-07 00:58 → ANH3MEDSUR 10-07 13:03 → ANHICU 10-07 13:17
PROVIDERS: Nurse Practitioner; Physician Assistant; Admitting Provider Family Medicine; Emergency Provider Emergency Medicine; PCP Internal Medicine Geriatric Medicine; Visit Provider Internal Medicine
DX: N17.9 Acute kidney failure, unspecified (principal); E87.1 Hypo-osmolality and hyponatremia; C90.00 Multiple myeloma not having achieved remission; J98.11 Atelectasis; I47.2 Ventricular tachycardia; R44.2 Other hallucinations; I35.0 Nonrheumatic aortic (valve) stenosis; N40.0 Benign prostatic hyperplasia without lower urinary tract symptoms; I25.10 Atherosclerotic heart disease of native coronary artery without angina pectoris; E78.5 Hyperlipidemia, unspecified; I51.89 Other ill-defined heart diseases; E86.0 Dehydration; I10 Essential (primary) hypertension; G47.34 Idiopathic sleep related nonobstructive alveolar hypoventilation; F32.A Depression, unspecified; Z85.51 Personal history of malignant neoplasm of bladder; Z86.73 Personal history of transient ischemic attack (TIA), and cerebral infarction without residual deficits; Z79.02 Long term (current) use of antithrombotics/antiplatelets; Z95.1 Presence of aortocoronary bypass graft; Z95.5 Presence of coronary angioplasty implant and graft
CPT/HCPCS: 36415; 36600; 51701; 70450; 71045; 76775; 80048; 80053; 80307; 81001; 82140; 82375; 82570; 82607; 82746; 82805; 82948; 83050; 83605; 83735; 83880; 83930; 83935; 84300; 84439; 84443; 84480; 85025; 85610; 85730; 87040; 87086; 92610; 92611; 93005; 93306; 93880; 96361; 96374; 97162; 99285; A9270; G0378; J0171; J0696; J3370; J7030; J7042